=== PATIENT | female | born 1945 | race African-American/Black ===

== ENCOUNTER 2016-12-11 12:15 | Inpatient (IN) | payer MEDICARE, MEDICAID ==
[~2016-12-11] VITALS: Ht 157.5 cm; Wt 65.8 kg
[2016-12-11 14:00] VITALS: BP 164/80
--- NOTE | 2016-12-11 14:35 | Emergency Room Report ---
History of Present Illness General Chief Complaint: Generalized Weakness Source: Patient, EMS Present Illness HPI This patient complains of generalized weakness. The patient states that she felt very weak this morning and when she went to the bathroom she was almost unable to stand up. She denies chest pain or shortness of breath. She denies abdominal pain. She denies dysuria or hematuria. She denies fever chills. She denies cough or congestion. She has no other complaints. Allergies: Coded Allergies: No Known Allergies (Unverified , 12/11/16) Patient History Past Medical History: see triage record, DM, CVA/TIA Social History: Denies: alcohol use, drug use, smoking Reviewed Nursing Documentation: PMH: Agreed, PSxH: Agreed Nursing Documentation-PMH Hx Cardiac Problems: No Hx Hypertension: No Hx Pacemaker: No Hx Asthma: No Hx COPD: No Hx Diabetes: Yes Hx Cancer: No Hx Gastrointestinal Problems: No Hx Dialysis: No History Of Psychiatric Problem: No Hx Neurological Problems: No Hx Cerebrovascular Accident: Yes Hx Seizures: No Review of Systems All Other Systems: negative except mentioned in HPI Physical Exam Vital Signs Date Time Temp Pulse Resp B/P Pulse Ox O2 Delivery O2 Flow Rate FiO2 12/11/16 12:11 99.0 2 16 179/84 98 Room Air Sp02 EP Interpretation: reviewed, normal General Appearance: no apparent distress, alert, GCS 15, non-toxic Head: normocephalic, atraumatic Eyes: bilateral eye PERRL, bilateral eye normal inspection ENT: hearing grossly normal, normal pharynx, no angioedema, normal voice Neck: full range of motion, supple/symm/no masses Respiratory: chest non-tender, lungs clear, normal breath sounds, speaking full sentences Cardiovascular #1: regular rate, rhythm, no edema Gastrointestinal: normal bowel sounds, non tender, soft, non-distended, no guarding, no rebound Rectal: deferred Musculoskeletal: back normal, normal range of motion, non-tender Neurologic: alert, oriented x3, responsive, sensory intact, speech normal, other - No focal weakness Psychiatric: judgement/insight normal, memory normal, mood/affect normal, no suicidal/homicidal ideation Skin: normal color, no rash, warm/dry, well hydrated Medical Decision Making Diagnostic Impression: Primary Impression: UTI (urinary tract infection) Additional Impression: Weakness ER Course This patient presents with generalized weakness and a urinary tract infection. She states she is unable to he really and is too weak to even get up and use the restroom. She will be admitted for further IV antibiotics, further evaluation and treatment. Labs Test 12/11/16 14:17 12/11/16 18:30 12/11/16 23:00 White Blood Count 8.3 K/UL (4.8-10.8) Red Blood Count 4.50 M/UL (4.20-5.40) Hemoglobin 10.7 G/DL (12.0-16.0) Hematocrit 35.4 % (37.0-47.0) Mean Corpuscular Volume 79 FL (80-99) Mean Corpuscular Hemoglobin 23.8 PG (27.0-31.0) Mean Corpuscular Hemoglobin Concent 30.3 G/DL (32.0-36.0) Red Cell Distribution Width 15.5 % (11.6-14.8) Platelet Count 220 K/UL (150-450) Mean Platelet Volume 8.3 FL (6.5-10.1) Neutrophils (%) (Auto) 80.9 % (45.0-75.0) Lymphocytes (%) (Auto) 11.1 % (20.0-45.0) Monocytes (%) (Auto) 6.3 % (1.0-10.0) Eosinophils (%) (Auto) 1.1 % (0.0-3.0) Basophils (%) (Auto) 0.6 % (0.0-2.0) Urine Color Pale yellow Pale yellow Urine Appearance Turbid Slightly cloudy Urine pH 7 (4.5-8.0) 7 (4.5-8.0) Urine Specific [place] 1.010 (1.005-1.035) 1.010 (1.005-1.035) Urine Protein 4+ (NEGATIVE) 4+ (NEGATIVE) Urine Glucose (UA) Negative (NEGATIVE) 1+ (NEGATIVE) Urine Ketones Negative (NEGATIVE) Negative (NEGATIVE) Urine Occult Blood 3+ (NEGATIVE) 3+ (NEGATIVE) Urine Nitrite Negative (NEGATIVE) Negative (NEGATIVE) Urine Bilirubin Negative (NEGATIVE) Negative (NEGATIVE) Urine Urobilinogen Normal MG/DL (0.0-1.0) Normal MG/DL (0.0-1.0) Urine Leukocyte Esterase 3+ (NEGATIVE) 3+ (NEGATIVE) Urine RBC 0-2 /HPF (0 - 2) 30-40 /HPF (0 - 2) Urine WBC Tntc /HPF (0 - 2) Tntc /HPF (0 - 2) Urine Squamous Epithelial Cells Occasional /LPF Few /LPF (NONE/OCC) Urine Bacteria Many /HPF (NONE) Few /HPF (NONE) Sodium Level 142 mEQ/L (135-145) 142 mEQ/L (135-145) Potassium Level 4.1 mEQ/L (3.4-4.9) 3.6 mEQ/L (3.4-4.9) Chloride Level 100 mEQ/L (98-107) 103 mEQ/L (98-107) Carbon Dioxide Level 23 mEQ/L (20-30) 22 mEQ/L (20-30) Anion Gap 19 (5-15) 17 (5-15) Blood Urea Nitrogen 40 mg/dL (7-23) 36 mg/dL (7-23) Creatinine 3.4 mg/dL (0.5-0.9) 3.1 mg/dL (0.5-0.9) Estimat Glomerular Filtration Rate 16.2 mL/min (>60) 17.9 mL/min (>60) Glucose Level 116 mg/dL (74-106) 98 mg/dL (74-106) Lactic Acid Level 0.70 mmol/L (0.66-2.22) Calcium Level 9.8 mg/dL (8.6-10.2) 9.4 mg/dL (8.6-10.2) Magnesium Level 1.4 mg/dL (1.7-2.5) 1.3 mg/dL (1.7-2.5) Total Bilirubin 0.3 mg/dL (0.0-1.2) 0.2 mg/dL (0.0-1.2) Aspartate Amino Transf (AST/SGOT) 15 U/L (5-40) 14 U/L (5-40) Alanine Aminotransferase (ALT/SGPT) 7 U/L (3-33) 7 U/L (3-33) Alkaline Phosphatase 64 U/L (35-104) 57 U/L (35-104) Total Creatine Kinase 66 U/L (26-140) 78 U/L (26-140) Creatine Kinase MB < 1.5 ng/mL (< 3.8) Creatine Kinase MB Relative Index Troponin I < 0.30 ng/mL (<=0.30) Total Protein 7.2 g/dL (6.6-8.7) 6.6 g/dL (6.6-8.7) Albumin 3.8 g/dL (3.5-5.2) 3.5 g/dL (3.5-5.2) Globulin 3.4 g/dL 3.1 g/dL Albumin/Globulin Ratio 1.1 (1.0-2.7) 1.1 (1.0-2.7) Uric Acid 12.5 mg/dL (3.0-7.5) Phosphorus Level 2.3 mg/dL (2.5-4.8) Thyroid Stimulating Hormone (TSH) 1.700 uIU/mL (0.300-4.500) Free Thyroxine 1.38 ng/dL (0.86-1.85) Free Triiodothyronine 2.1 pg/mL (2.3-4.2) Urine Eosinophils None seen Urine Random Sodium 103 mmol/L Urine Random Chloride 71 mmol/L Urine Potassium Timed 16 mmol/L EKG Diagnostic Results Rate: normal Rhythm: NSR ST Segments: no acute changes Rhythm Strip Diag. Results EP Interpretation: yes Rate: 60's Rhythm: NSR, no PVC's, no ectopy Chest X-Ray Diagnostic Results EP Interpretation: Yes Findings: no consolidation, no effusion, no pneumothorax, no acute cardiopulmonary disease Number of Views: 1 Last Vital Signs Date Time Temp Pulse Resp B/P Pulse Ox O2 Delivery O2 Flow Rate FiO2 12/11/16 12:11 99.0 2 16 179/84 98 Room Air Disposition: ADMITTED INPATIENT Condition: Serious Referrals: NOT CHOSEN RODDY/,REFERRING (PCP) LORNA BERG D.O. Dec 11, 2016 14:35
[2016-12-11 14:47] VITALS: BP 205/73
[2016-12-11 14:58] LABS: BASOPHILS % (AUTO) 0.6 % (0.0-2.0); EOSINOPHILS % (AUTO) 1.1 % (0.0-3.0); LYMPHOCYTES % (AUTO) 11.1 % (20.0-45.0); MEAN CORPUSCULAR HEMOGLOBIN 23.8 PG (27.0-31.0); MEAN CORPUSCULAR HGB CONC 30.3 G/DL (32.0-36.0); MEAN CORPUSCULAR VOLUME 79 FL (80-99); MEAN PLATELET VOLUME 8.3 FL (6.5-10.1); MONOCYTES % (AUTO) 6.3 % (1.0-10.0); NEUTROPHILS % (AUTO) 80.9 % (45.0-75.0); PLATELET COUNT 220 K/UL (150-450); RED CELL DISTRIBUTION WIDTH 15.5 % (11.6-14.8); WHITE BLOOD COUNT 8.3 K/UL (4.8-10.8)
[2016-12-11 15:08] LABS: APPEARANCE,URINE TURBID; KETONES,URINE NEGATIVE (NEGATIVE); LEUKOCYTE ESTERASE ,URINE 3+ (NEGATIVE); NITRITE,URINE NEGATIVE (NEGATIVE); PH,URINE 7 (4.5-8.0); PROTEIN,URINE 4+ (NEGATIVE); UROBILINOGEN,URINE NORMAL MG/DL (0.0-1.0)
--- NOTE | 2016-12-11 15:17 | Diagnostic Imaging Report ---
Indication: WEAK Technique: One view of the chest Comparison: none Findings: Lungs and pleural spaces are clear. Heart size normal. Aorta is tortuous and ectatic Impression: No acute process
[2016-12-11] MEDS ORDERED: [UNRECOGNIZED DRUG - REMARK] (15:20)
[2016-12-11] MEDS ORDERED: PLAVIX75 MG ORAL (15:20)
[2016-12-11] MEDS ORDERED: LABETALOL HCL200 MG ORAL (15:20)
[2016-12-11] MEDS ORDERED: [UNRECOGNIZED DRUG - REMARK] (15:20)
[2016-12-11 15:22] LABS: ALANINE AMINOTRANSFERASE 7 U/L (3-33); ALBUMIN/GLOBULIN RATIO 1.1 (1.0-2.7); ANION GAP 19 (5-15); ASPARTATE AMINO TRANSFERASE 15 U/L (5-40); CALCIUM 9.8 mg/dL (8.6-10.2); CARBON DIOXIDE 23 mEQ/L (20-30); CHLORIDE 100 mEQ/L (98-107); CREATININE 3.4 mg/dL (0.5-0.9); GLOMERULAR FILTRATION RATE 16.2 mL/min (>60); HEMOLYSIS 5; MAGNESIUM 1.4 mg/dL (1.7-2.5); POTASSIUM 4.1 mEQ/L (3.4-4.9); SODIUM 142 mEQ/L (135-145); TOTAL PROTEIN 7.2 g/dL (6.6-8.7); TROPONIN I < 0.30 ng/mL (<=0.30)
[2016-12-11 15:31] VITALS: BP 208/88
[2016-12-11 15:32] LABS: CKMB < 1.5 ng/mL (< 3.8)
[2016-12-11] MEDS ORDERED: cefTRIAXone 1 GM in NS 55 ML IVPB ONE (16:00)
[2016-12-11 16:25] LABS: BACTERIA,URINE MANY /HPF; RBC,URINE 0-2 /HPF (0 - 2); SQUAMOUS EPITHELIAL CELL,UR OCCASIONAL /LPF (NONE/OCC); WBC,URINE TNTC /HPF (0 - 2)
[2016-12-11 17:55] VITALS: BP 167/86
[2016-12-11] MEDS ORDERED: DuoNeb 0.5-3(2.5)mg/3ml neb HHN PRN (18:00)
[2016-12-11] MEDS ORDERED: Nitroglycerin Subl 0.4mg tab (Bottle Of 25) SL PRN (18:15)
[2016-12-11 20:00] VITALS: BP 172/87
[2016-12-11] MEDS ORDERED: TORSEMIDE5 MG ORAL (20:52)
[2016-12-11] MEDS ORDERED: [UNRECOGNIZED DRUG - OTHER] PO (20:52)
[2016-12-11] MEDS ORDERED: CELEXA40 MG ORAL (20:52)
[2016-12-11] MEDS ORDERED: CHILDREN'S ASPI81 MG ORAL (20:52)
[2016-12-11] MEDS ORDERED: TRADJENTA5 MG PO (20:52)
[2016-12-11] MEDS ORDERED: ISOSORBIDE MONO60 M1 PO (20:52)
[2016-12-11] MEDS ORDERED: SODIUM BICARBO325 MG PO (20:53)
[2016-12-11] MEDS ORDERED: CRESTOR10 M1 ORAL (20:53)
[2016-12-11] MEDS ORDERED: CLONIDINE0.1 MG PO (20:53)
[2016-12-11] MEDS ORDERED: HYDRALAZINE HCL25 M2 PO (20:53)
[2016-12-11] MEDS ORDERED: DOCUSATE SODIU100 M2 ORAL (20:53)
[2016-12-11] MEDS ORDERED: NEXIUM40 MG ORAL (20:53)
[2016-12-11] MEDS ORDERED: Vancomycin 1250mg/D5W 275ml IVPB ONE ×2 (21:00)
[2016-12-11] MEDS ORDERED: Pneumococcal Vaccine 25mcg/0.5ml IM ONE (21:00)
[2016-12-11] MEDS ORDERED: Cefepime HCl 2 GM in D5W 110 ML IV SCH (21:00)
[2016-12-11] MEDS: Cefepime 1gm/D5W 55ml IVPB SCH ×2 (21:03)
[2016-12-11 21:16] LABS: ALANINE AMINOTRANSFERASE 7 U/L (3-33); ALBUMIN/GLOBULIN RATIO 1.1 (1.0-2.7); ANION GAP 17 (5-15); ASPARTATE AMINO TRANSFERASE 14 U/L (5-40); CALCIUM 9.4 mg/dL (8.6-10.2); CARBON DIOXIDE 22 mEQ/L (20-30); CHLORIDE 103 mEQ/L (98-107); CREATININE 3.1 mg/dL (0.5-0.9); FREE T3 2.1 pg/mL (2.3-4.2); GLOMERULAR FILTRATION RATE 17.9 mL/min (>60); HEMOLYSIS 4; MAGNESIUM 1.3 mg/dL (1.7-2.5); PHOSPHORUS 2.3 mg/dL (2.5-4.8); POTASSIUM 3.6 mEQ/L (3.4-4.9); SODIUM 142 mEQ/L (135-145); TOTAL PROTEIN 6.6 g/dL (6.6-8.7); URIC ACID 12.5 mg/dL (3.0-7.5)
[2016-12-11] MEDS: Heparin 5000 units/ml inj SUBQ SCH (21:49)
[2016-12-11] MEDS: Morphine Sulfate 2mg/ml Inj IVP PRN (21:50)
--- NOTE | 2016-12-11 22:47 | History and Physical ---
History of Present Illness General Date patient seen: Dec 11, 2016 Reason for Hospitalization: Generalized Weakness Present Illness HPI 71 year old female with hx of DM, CVA, brought in by paramedics with complains of generalized weakness. The patient states that she felt very weak this morning and when she went to the bathroom she was almost unable to stand up. She denies chest pain or shortness of breath. She denies abdominal pain. She denies dysuria or hematuria. She was diagnosed to have pyelonephritis and admitted for further evaluation. Allergies: Coded Allergies: IODINE (Verified Allergy, Intermediate, Rash, 12/16/16) ALLOPURINOL (Verified Adverse Reaction, Intermediate, rash, 12/16/16) Medication History Scheduled Aspirin (Children's Aspirin), 81 MG ORAL DAILY, (Reported) Citalopram Hydrobromide (Celexa), 40 MG ORAL DAILY, (Reported) Clonidine HCl (Clonidine HCl), 0.1 MG PO BID, (Reported) Clopidogrel Bisulfate* (Plavix*), Unknown Dose ORAL DAILY, (Reported) Docusate Sodium (Docusate Sodium), 100 MG ORAL BID, (Reported) Esomeprazole Magnesium (Nexium), 40 MG ORAL DAILY, (Reported) Hydralazine HCl (Hydralazine HCl), 25 MG PO BID, (Reported) Isosorbide Mononitrate (Isosorbide Mononitrate Er), 60 MG PO DAILY, (Reported) Labetalol Hcl* (Normodyne*), 200 MG ORAL TID, (Reported) Linagliptin (Tradjenta), 5 MG PO DAILY, (Reported) Paricalcitol (Paricalcitol), 1 MCG PO BID, (Reported) Rosuvastatin Calcium (Crestor), Unknown Dose ORAL DAILY, (Reported) Sodium Bicarbonate (Sodium Bicarbonate), 325 MG PO BID, (Reported) Torsemide (Torsemide), 20 MG ORAL DAILY, (Reported) Miscellaneous Medications [cholestero pill], (Reported) [diabetic med (pill)], (Reported) Patient History Healthcare decision maker Resuscitation status Advanced Directive on File Review of Systems All Other Systems: negative except mentioned in HPI Physical Exam General Appearance: WD/WN Lines, tubes and drains: peripheral HEENT: normocephalic, atraumatic Neck: non-tender, normal alignment Respiratory/Chest: chest wall non-tender, lungs clear Cardiovascular/Chest: normal peripheral pulses, regular rhythm Abdomen: normal bowel sounds, non tender Genitourinary/Rectal: normal genital exam, normal rectal exam Extremities: normal range of motion, non-tender 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, no motor/sensory deficits Last 24 Hour Vital Signs Date Time Temp Pulse Resp B/P Pulse Ox O2 Delivery O2 Flow Rate FiO2 12/11/16 20:00 98.2 74 20 172/87 99 Room Air 12/11/16 19:37 167/86 12/11/16 17:55 97.9 77 22 167/86 100 Room Air 12/11/16 17:31 77 17 171/72 98 Room Air 12/11/16 15:44 212/68 12/11/16 15:31 73 18 208/88 98 Room Air 12/11/16 14:47 99.7 67 17 205/73 98 Room Air 12/11/16 14:00 98.5 65 16 164/80 100 Room Air 12/11/16 12:11 99.0 2 16 179/84 98 Room Air Laboratory Tests Test 12/11/16 14:17 12/11/16 18:30 White Blood Count 8.3 K/UL (4.8-10.8) Red Blood Count 4.50 M/UL (4.20-5.40) Hemoglobin 10.7 G/DL (12.0-16.0) L Hematocrit 35.4 % (37.0-47.0) L Mean Corpuscular Volume 79 FL (80-99) L Mean Corpuscular Hemoglobin 23.8 PG (27.0-31.0) L Mean Corpuscular Hemoglobin Concent 30.3 G/DL (32.0-36.0) L Red Cell Distribution Width 15.5 % (11.6-14.8) H Platelet Count 220 K/UL (150-450) Mean Platelet Volume 8.3 FL (6.5-10.1) Neutrophils (%) (Auto) 80.9 % (45.0-75.0) H Lymphocytes (%) (Auto) 11.1 % (20.0-45.0) L Monocytes (%) (Auto) 6.3 % (1.0-10.0) Eosinophils (%) (Auto) 1.1 % (0.0-3.0) Basophils (%) (Auto) 0.6 % (0.0-2.0) Urine Color Pale yellow Urine Appearance Turbid Urine pH 7 (4.5-8.0) Urine Specific [place] 1.010 (1.005-1.035) Urine Protein 4+ (NEGATIVE) H Urine Glucose (UA) Negative (NEGATIVE) Urine Ketones Negative (NEGATIVE) Urine Occult Blood 3+ (NEGATIVE) H Urine Nitrite Negative (NEGATIVE) Urine Bilirubin Negative (NEGATIVE) Urine Urobilinogen Normal MG/DL (0.0-1.0) Urine Leukocyte Esterase 3+ (NEGATIVE) H Urine RBC 0-2 /HPF (0 - 2) Urine WBC Tntc /HPF (0 - 2) H Urine Squamous Epithelial Cells Occasional /LPF Urine Bacteria Many /HPF (NONE) H Sodium Level 142 mEQ/L (135-145) 142 mEQ/L (135-145) Potassium Level 4.1 mEQ/L (3.4-4.9) 3.6 mEQ/L (3.4-4.9) Chloride Level 100 mEQ/L (98-107) 103 mEQ/L (98-107) Carbon Dioxide Level 23 mEQ/L (20-30) 22 mEQ/L (20-30) Anion Gap 19 (5-15) H 17 (5-15) H Blood Urea Nitrogen 40 mg/dL (7-23) H 36 mg/dL (7-23) H Creatinine 3.4 mg/dL (0.5-0.9) H 3.1 mg/dL (0.5-0.9) H Estimat Glomerular Filtration Rate 16.2 mL/min (>60) 17.9 mL/min (>60) Glucose Level 116 mg/dL (74-106) H 98 mg/dL (74-106) Lactic Acid Level 0.70 mmol/L (0.66-2.22) Calcium Level 9.8 mg/dL (8.6-10.2) 9.4 mg/dL (8.6-10.2) Magnesium Level 1.4 mg/dL (1.7-2.5) L 1.3 mg/dL (1.7-2.5) L Total Bilirubin 0.3 mg/dL (0.0-1.2) 0.2 mg/dL (0.0-1.2) Aspartate Amino Transf (AST/SGOT) 15 U/L (5-40) 14 U/L (5-40) Alanine Aminotransferase (ALT/SGPT) 7 U/L (3-33) 7 U/L (3-33) Alkaline Phosphatase 64 U/L (35-104) 57 U/L (35-104) Total Creatine Kinase 66 U/L (26-140) 78 U/L (26-140) Creatine Kinase MB < 1.5 ng/mL (< 3.8) Creatine Kinase MB Relative Index Troponin I < 0.30 ng/mL (<=0.30) Total Protein 7.2 g/dL (6.6-8.7) 6.6 g/dL (6.6-8.7) Albumin 3.8 g/dL (3.5-5.2) 3.5 g/dL (3.5-5.2) Globulin 3.4 g/dL 3.1 g/dL Albumin/Globulin Ratio 1.1 (1.0-2.7) 1.1 (1.0-2.7) Plasma/Serum Osmolality Pending Uric Acid 12.5 mg/dL (3.0-7.5) H Phosphorus Level 2.3 mg/dL (2.5-4.8) L Thyroid Stimulating Hormone (TSH) 1.700 uIU/mL (0.300-4.500) Free Thyroxine 1.38 ng/dL (0.86-1.85) Free Triiodothyronine 2.1 pg/mL (2.3-4.2) L Cortisol Pending Microbiology Date/Time Source Procedure Growth Status 12/11/16 14:12 Nasal Nares Influenza Types A,B Antigen (SARAH) - Final Complete Height (Feet): 5 Height (Inches): 2.00 Weight (Pounds): 145 Medications Current Medications Medications (Trade) Dose Ordered Sig/Letty Route PRN Reason Start Time Stop Time Status Last Admin Dose Admin Acetaminophen (Tylenol) 650 mg Q4H PRN ORAL T>100.5 12/11/16 18:00 01/10/17 17:59 Albuterol/ Ipratropium (DuoNeb 0.5-3(2.5)mg/3ml) 3 ml Q4H PRN HHN Shortness of Breath 12/11/16 18:00 12/16/16 17:59 Cefepime HCl/ Dextrose (Maxipime/D5W) 55 ml @ 110 mls/hr Q24H IVPB 12/11/16 20:00 12/18/16 19:59 12/11/16 21:03 Clonidine HCl (Catapres) 0.1 mg Q6H PRN ORAL SBP > 160 12/11/16 18:45 01/10/17 18:44 12/11/16 19:37 Clopidogrel Bisulfate 75 mg 75 mg DAILY ORAL 12/12/16 09:00 01/11/17 08:59 Dextrose (Dextrose 50%) STAT PRN IV Hypoglycemia 12/11/16 21:15 01/10/17 21:14 Heparin Sodium (Porcine) (Heparin 5000 units/ml) 5,000 units EVERY 12 HOURS SUBQ 12/11/16 21:00 01/10/17 20:59 12/11/16 21:49 Insulin Aspart (NovoLOG) BEFORE MEALS AND HS SUBQ 12/12/16 22:00 01/11/17 21:59 Morphine Sulfate (Morphine Sulfate) 2 mg Q4H PRN IVP Moderate Pain (Pain Scale 4-6) 12/11/16 18:00 12/18/16 17:59 12/11/16 21:50 Nitroglycerin 0.4 mg 0.4 mg Q5MIN X 3 DOSES PRN SL Prn Chest Pain 12/11/16 18:15 01/10/17 18:14 Ondansetron HCl (Zofran) 4 mg Q6H PRN IVP Nausea & Vomiting 12/11/16 18:00 01/10/17 17:59 Polyethylene Glycol (Miralax) 17 gm DAILYPRN PRN ORAL Constipation 12/11/16 18:00 01/10/17 17:59 Sodium Chloride (Sodium Chloride 1000ml bag) 1,000 ml @ 50 mls/hr Q20H IVLG 12/11/16 19:00 01/10/17 18:59 12/11/16 19:37 Temazepam (Restoril) 15 mg HSPRN PRN ORAL Insomnia 12/11/16 21:00 12/18/16 20:59 Vancomycin HCl (Vanco rx to dose) 1 ea DAILY PRN MISC . 12/11/16 18:30 01/10/17 18:29 Assessment/Plan Problem List: (1) Sepsis ICD Codes: A41.9 - Sepsis, unspecified organism SNOMED: 54109296 (2) ATN (acute tubular necrosis) ICD Codes: N17.0 - Acute kidney failure with tubular necrosis SNOMED: 89597013 (3) Episode of generalized weakness ICD Codes: R53.1 - Weakness SNOMED: 65787805 (4) UTI (urinary tract infection) ICD Codes: N39.0 - Urinary tract infection, site not specified SNOMED: 00836504 Assessment/Plan IV antibiotics IV fluids check cultures check electrolytes renal studies CHARLOTTE MARTINES Dec 11, 2016 22:47
[2016-12-11] MEDS: NovoLOG Insulin Flexpen SUBQ SCH (23:38)
[2016-12-12] VITALS: BP 166/86
[2016-12-12] MEDS ORDERED: Vancomycin 1 GM in D5W 275 ML IV SCH (00:30)
[2016-12-12 00:48] LABS: KETONES,URINE NEGATIVE (NEGATIVE); LEUKOCYTE ESTERASE ,URINE 3+ (NEGATIVE); NITRITE,URINE NEGATIVE (NEGATIVE); PH,URINE 7 (4.5-8.0); PROTEIN,URINE 4+ (NEGATIVE); UROBILINOGEN,URINE NORMAL MG/DL (0.0-1.0)
[2016-12-12 00:51] LABS: APPEARANCE,URINE SLIGHTLY CLOUDY
[2016-12-12 01:03] LABS: BACTERIA,URINE FEW /HPF; RBC,URINE 30-40 /HPF (0 - 2); SQUAMOUS EPITHELIAL CELL,UR FEW /LPF (NONE/OCC); WBC,URINE TNTC /HPF (0 - 2)
[2016-12-12 04:00] VITALS: BP 165/80
[2016-12-12] MEDS: NovoLOG Insulin Flexpen SUBQ SCH ×4 (05:52→20:41)
[2016-12-12 08:00] VITALS: BP 140/80
[2016-12-12 08:52] LABS: BASOPHILS % (AUTO) 0.9 % (0.0-2.0); EOSINOPHILS % (AUTO) 2.3 % (0.0-3.0); MEAN CORPUSCULAR HEMOGLOBIN 23.8 PG (27.0-31.0); MEAN CORPUSCULAR HGB CONC 30.5 G/DL (32.0-36.0); MEAN CORPUSCULAR VOLUME 78 FL (80-99); MEAN PLATELET VOLUME 7.8 FL (6.5-10.1); NEUTROPHILS % (AUTO) 67.8 % (45.0-75.0); PLATELET COUNT 199 K/UL (150-450); RED CELL DISTRIBUTION WIDTH 15.1 % (11.6-14.8); WHITE BLOOD COUNT 5.9 K/UL (4.8-10.8)
[2016-12-12 09:11] LABS: CALCIUM 9.3 mg/dL (8.6-10.2); CREATININE 2.9 mg/dL (0.5-0.9); GLOMERULAR FILTRATION RATE 19.4 mL/min (>60); POTASSIUM 4.1 mEQ/L (3.4-4.9); TOTAL PROTEIN 6.5 g/dL (6.6-8.7)
[2016-12-12 10:10] LABS: CORTISOL LC 9.9 ug/dL (.)
[2016-12-12] MEDS: Heparin 5000 units/ml inj SUBQ SCH ×2 (10:25→20:38)
[2016-12-12 12:00] VITALS: BP 184/93
--- NOTE | 2016-12-12 12:34 | Diagnostic Imaging Report ---
Indication: Abnormal renal function tests Technique: Grayscale and duplex images of the kidneys, retroperitoneum, and bladder were obtained. Comparison:None Findings: Right kidney measures 10.1 cm in length. Left kidney measures 10.4 cm in length. Both kidneys demonstrate normal echogenicity. No hydronephrosis. Bilateral renal cysts, including septated left upper pole cyst. Small calcifications are seen in the left renal parenchyma and possibly in the renal sinus, may reflect calyceal calculi or parenchymal calcifications. Normal inferior vena cava. Bladder is empty, contains a Velasco catheter. Impression: Negative for hydronephrosis Left renal calcifications, may be parenchymal or calyceal Bilateral renal cysts Empty bladder with Velasco catheter.
[2016-12-12 16:00] VITALS: BP 189/91
[2016-12-12 19:00] VITALS: BP 160/86
[2016-12-12] MEDS: Cefepime 1gm/D5W 55ml IVPB SCH ×2 (20:35)
[2016-12-12] MEDS: Labetalol 200mg tab ORAL SCH (20:36)
[2016-12-12] MEDS: HydrALAZINE 25mg tab ORAL SCH (20:37)
--- NOTE | 2016-12-12 22:50 | Consultation ---
Consult Note Consult Note ID Dic # [id number] FAISAL ALBRECHT M.D. Dec 12, 2016 22:50
--- NOTE | 2016-12-12 23:50 | Pulmonology Progress Note ---
Assessment/Plan Problems: (1) Sepsis (2) ATN (acute tubular necrosis) (3) UTI (urinary tract infection) Assessment/Plan iv antibiotics check cultures check electrolytes tolerating well Subjective ROS Limited/Unobtainable: No Allergies: Coded Allergies: IODINE (Verified Allergy, Intermediate, Rash, 12/16/16) ALLOPURINOL (Verified Adverse Reaction, Intermediate, rash, 12/16/16) Objective Last 24 Hour Vital Signs Date Time Temp Pulse Resp B/P Pulse Ox O2 Delivery O2 Flow Rate FiO2 12/12/16 20:37 189/91 12/12/16 20:36 60 189/91 12/12/16 20:36 189/91 12/12/16 19:00 98.3 66 18 160/86 99 Room Air 12/12/16 16:00 97.0 60 18 189/91 100 Room Air 12/12/16 12:36 184/93 12/12/16 12:00 97.0 68 20 184/93 98 Room Air 12/12/16 08:00 99.8 67 19 140/80 95 Room Air 12/12/16 06:19 165/80 12/12/16 04:00 97.0 71 18 165/80 99 Room Air 12/12/16 00:00 98.2 68 20 166/86 95 Room Air Intake and Output 12/11/16 12/12/16 19:00 07:00 Intake Total 1055 ml 570 ml Output Total 200 ml 1400 ml Balance 855 ml -830 ml Intake Oral 120 ml IV Total 1055 ml 450 ml Output Urine Total 200 ml 1400 ml Objective General Appearance: WD/WN Lines, tubes and drains: peripheral HEENT: normocephalic, atraumatic Neck: non-tender, normal alignment Respiratory/Chest: chest wall non-tender, lungs clear Cardiovascular/Chest: normal peripheral pulses, regular rhythm Abdomen: normal bowel sounds, non tender Genitourinary/Rectal: normal genital exam, normal rectal exam Extremities: normal range of motion, non-tender Microbiology Date/Time Source Procedure Growth Status 12/11/16 14:12 Nasal Nares Influenza Types A,B Antigen (SARAH) - Final Complete 12/11/16 14:17 Urine,Clean Catch Urine Culture - Preliminary Gram Negative Bacillus 1 Resulted Laboratory Tests 12/12/16 07:57: White Blood Count 5.9, Red Blood Count 4.20, Hemoglobin 10.0L, Hematocrit 32.8L , Mean Corpuscular Volume 78L, Mean Corpuscular Hemoglobin 23.8L, Mean Corpuscular Hemoglobin Concent 30.5L, Red Cell Distribution Width 15.1H, Platelet Count 199, Mean Platelet Volume 7.8, Neutrophils (%) (Auto) 67.8, Lymphocytes (%) (Auto) 20.0, Monocytes (%) (Auto) 9.0, Eosinophils (%) (Auto) 2.3, Basophils (%) (Auto) 0.9, Sodium Level 140, Potassium Level 4.1, Chloride Level 101, Carbon Dioxide Level 24, Anion Gap 15, Blood Urea Nitrogen 32H, Creatinine 2.9H, Estimat Glomerular Filtration Rate 19.4, Glucose Level 135H, Calcium Level 9.3, Total Bilirubin 0.2, Aspartate Amino Transf (AST/SGOT) 13, Alanine Aminotransferase (ALT/SGPT) 7, Alkaline Phosphatase 57, Total Protein 6.5L, Albumin 3.4L, Globulin 3.1, Albumin/Globulin Ratio 1.0 Current Medications Medications (Trade) Dose Ordered Sig/Letty Route PRN Reason Start Time Stop Time Status Last Admin Dose Admin Acetaminophen (Tylenol) 650 mg Q4H PRN ORAL T>100.5 12/11/16 18:00 01/10/17 17:59 Albuterol/ Ipratropium (DuoNeb 0.5-3(2.5)mg/3ml) 3 ml Q4H PRN HHN Shortness of Breath 12/11/16 18:00 12/16/16 17:59 Aspirin (ASA) 81 mg DAILY ORAL 12/13/16 09:00 01/12/17 08:59 Atorvastatin Calcium (Lipitor) 1 mg QHS ORAL 12/13/16 21:00 01/12/17 20:59 Cefepime HCl/ Dextrose (Maxipime/D5W) 55 ml @ 110 mls/hr Q24H IVPB 12/11/16 20:00 12/18/16 19:59 12/12/16 20:35 Citalopram Hydrobromide (celeXA) 40 mg DAILY ORAL 12/13/16 09:00 01/12/17 08:59 Clonidine HCl (Catapres) 0.1 mg BID ORAL 12/12/16 20:00 01/11/17 19:59 12/12/16 20:36 Clonidine HCl (Catapres) 0.1 mg Q6H PRN ORAL SBP > 160 12/11/16 18:45 01/10/17 18:44 12/12/16 12:36 Clopidogrel Bisulfate 75 mg 75 mg DAILY ORAL 12/12/16 09:00 01/11/17 08:59 12/12/16 10:20 Dextrose (Dextrose 50%) STAT PRN IV Hypoglycemia 12/11/16 21:15 01/10/17 21:14 Docusate Sodium (Colace) 100 mg BID ORAL 12/13/16 20:00 01/12/17 19:59 Heparin Sodium (Porcine) (Heparin 5000 units/ml) 5,000 units EVERY 12 HOURS SUBQ 12/11/16 21:00 01/10/17 20:59 12/12/16 20:38 Hydralazine HCl (Apresoline) 25 mg BID ORAL 12/12/16 20:00 01/11/17 19:59 12/12/16 20:37 Insulin Aspart (NovoLOG) BEFORE MEALS AND HS SUBQ 12/11/16 22:30 01/10/17 22:29 12/12/16 20:41 Isosorbide Mononitrate (Imdur) 60 mg DAILY ORAL 12/13/16 09:00 01/12/17 08:59 Labetalol HCl (Normodyne) 200 mg TID ORAL 12/12/16 20:00 01/11/17 19:59 12/12/16 20:36 Morphine Sulfate (Morphine Sulfate) 2 mg Q4H PRN IVP Moderate Pain (Pain Scale 4-6) 12/11/16 18:00 12/18/16 17:59 12/11/16 21:50 Nitroglycerin 0.4 mg 0.4 mg Q5MIN X 3 DOSES PRN SL Prn Chest Pain 12/11/16 18:15 01/10/17 18:14 Non-Formulary Medication (Non-Formulary Med) 1 ea DAILY ORAL 12/13/16 09:00 01/12/17 08:59 UNV Ondansetron HCl (Zofran) 4 mg Q6H PRN IVP Nausea & Vomiting 12/11/16 18:00 01/10/17 17:59 Pantoprazole (Protonix) 40 mg DAILY ORAL 12/13/16 09:00 01/12/17 08:59 Paricalcitol (Zemplar) 1 mcg BID ORAL 12/13/16 20:00 01/12/17 19:59 Polyethylene Glycol (Miralax) 17 gm DAILYPRN PRN ORAL Constipation 12/11/16 18:00 01/10/17 17:59 Sodium Bicarbonate (NaHCO3) 325 mg BID ORAL 12/13/16 20:00 01/12/17 19:59 Sodium Chloride (Sodium Chloride 1000ml bag) 1,000 ml @ 50 mls/hr Q20H IVLG 12/11/16 19:00 01/10/17 18:59 12/12/16 17:20 Temazepam (Restoril) 15 mg HSPRN PRN ORAL Insomnia 12/11/16 21:00 12/18/16 20:59 Torsemide (Demadex) 20 mg DAILY ORAL 12/13/16 09:00 01/12/17 08:59 CHARLOTTE MARTINES Dec 12, 2016 23:50
[2016-12-13] MEDS ORDERED: Vancomycin 500mg/D5W 110ml IVPB ONE ×2
[2016-12-13 00:33] VITALS: BP 196/86
[2016-12-13 04:00] VITALS: BP 167/90
--- NOTE | 2016-12-13 04:28 | Consultation ---
DATE OF CONSULTATION: 12/12/2016 INFECTIOUS DISEASES CONSULTATION CONSULTING PHYSICIAN: Rosalino Rodriguez M.D. REQUESTING PHYSICIAN: Jeyson Peralta M.D. REASON FOR CONSULTATION: Evaluation of the patient for possible urinary tract infection and antibiotic management. HISTORY OF PRESENT ILLNESS: The patient is a 71-year-old female, who was admitted to this medical center because of general weakness. Urine culture is growing gram-negative ede. UA shows too numerous to count white blood cells. Infectious Diseases consultation has been requested for further evaluation of the patient's antibiotic management. PAST MEDICAL HISTORY: 1. General weakness. 2. Diabetes. 3. History of CVA. ALLERGIES: No known drug allergies. MEDICATIONS: Vancomycin and cefepime. SOCIAL HISTORY: Negative for alcohol or drug abuse. FAMILY HISTORY: Noncontributory. REVIEW OF SYSTEMS: A 10-point review was done and except what is mentioned has been negative.HEENT: No recent change in vision or hearing. Pulmonary: No cough or shortness of breath. Cardiovascular: No chest pain or palpitation. Gastrointestinal: No nausea or vomiting. Genitourinary: No dysuria. PHYSICAL EXAMINATION: VITAL SIGNS: Temperature 98 degrees, blood pressure 160/80, pulse 86, and respiratory rate 18. HEENT: Mild pale conjunctivae. No icterus. NECK: Supple. CHEST: Coarse breathing sounds. HEART: S1 and S2. ABDOMEN: Soft and nontender. EXTREMITIES: No cyanosis. GENITOURINARY: Velasco catheter in place. NEUROLOGICAL: Awake and alert. LABORATORY AND DIAGNOSTIC DATA: UA shows too numerous to count white blood cells. Urine culture is growing gram-negative ede. BUN and creatinine is 32 and 29 respectively. WBC is 5.9, hemoglobin 10, and platelets 159,000. Ultrasound of the kidney is negative for hydronephrosis. Chest x-ray, no acute process. ASSESSMENT: The patient is a 71-year-old female with multiple medical problems, who has been admitted to this medical center due to history of general weakness, pyuria, and urine culture is growing gram-negative ede, possible urinary tract infection, sepsis, and bacteremia is a consideration. PLAN: 1. We will continue the patient on cefepime. 2. Hold vancomycin. 3. Monitor CBC. 4. Monitor BMP. 5. Monitor cultures (blood and urine). 6. Monitor chest x-ray. 7. Based on patient's clinical course and laboratories, we will do further recommendation. Thank you, Dr. Peralta, for allowing me to participate in the care of this patient. I will follow the patient with you during this hospitalization. Rosalino Rodriguez M.D. DR: NEY JOB#: [id number] CC:
[2016-12-13] MEDS: NovoLOG Insulin Flexpen SUBQ SCH ×4 (06:24→21:52)
[2016-12-13 07:41] LABS: ANION GAP 18 (5-15); CALCIUM 9.5 mg/dL (8.6-10.2); CARBON DIOXIDE 22 mEQ/L (20-30); CHLORIDE 102 mEQ/L (98-107); CREATININE 2.5 mg/dL (0.5-0.9); HEMOLYSIS 4; POTASSIUM 3.6 mEQ/L (3.4-4.9); SODIUM 142 mEQ/L (135-145)
[2016-12-13 08:00] VITALS: BP 165/85
[2016-12-13] MEDS: Morphine Sulfate 2mg/ml Inj IVP PRN ×2 (08:15→13:53)
[2016-12-13] MEDS: Aspirin Baby 81mg ORAL SCH (08:16)
[2016-12-13] MEDS: Citalopram 20mg Tab ORAL SCH (08:16)
[2016-12-13] MEDS: Imdur 30mg tab ORAL SCH (08:17)
[2016-12-13] MEDS: Labetalol 200mg tab ORAL SCH ×3 (08:17→17:39)
[2016-12-13] MEDS: HydrALAZINE 25mg tab ORAL SCH ×2 (08:17→21:49)
[2016-12-13] MEDS: Heparin 5000 units/ml inj SUBQ SCH ×2 (08:23→21:51)
[2016-12-13] MEDS ORDERED: Torsemide 10mg tab ORAL SCH (09:00)
--- NOTE | 2016-12-13 10:43 | Infectious Diseases Prog Note ---
Assessment/Plan Assessment/Plan A: The patient is a 71-year-old female w Probable UTI General weakness Ultrasound of the kidney : No hydronephrosis Chest x-ray, no acute process Flu Neg Diabetes History of CVA PLAN: continue the patient on cefepime d# 3 , may change to PO based on the final UCx report Monitor CBC. Monitor BMP Monitor cultures (blood and urine) Monitor chest x-ray Subjective Constitutional: Denies: anorexia, chills, drenching sweats, fatigue, fever, no symptoms, other Allergies: Coded Allergies: No Known Allergies (Unverified , 12/11/16) Objective Vital Signs Last 24 Hour Vital Signs Date Time Temp Pulse Resp B/P Pulse Ox O2 Delivery O2 Flow Rate FiO2 12/13/16 08:45 97.2 12/13/16 08:18 167/90 12/13/16 08:17 167/90 12/13/16 08:17 68 167/90 12/13/16 08:17 167/90 12/13/16 08:07 97 18 Room Air 12/13/16 08:00 98.3 22 165/85 97 Room Air 12/13/16 06:53 167/90 12/13/16 04:00 97.2 68 18 167/90 100 Room Air 12/13/16 00:33 98.1 63 21 196/86 98 Room Air 12/12/16 20:37 189/91 12/12/16 20:36 60 189/91 12/12/16 20:36 189/91 12/12/16 19:00 98.3 66 18 160/86 99 Room Air 12/12/16 16:00 97.0 60 18 189/91 100 Room Air 12/12/16 12:36 184/93 12/12/16 12:00 97.0 68 20 184/93 98 Room Air Height (Feet): 5 Height (Inches): 2.00 Weight (Pounds): 145 HEENT: anicteric Respiratory/Chest: normal breath sounds Cardiovascular: regular rhythm Abdomen: no organomegaly Microbiology Date/Time Source Procedure Growth Status 12/11/16 14:37 Blood Blood Culture - Preliminary NO GROWTH AFTER 24 HOURS Resulted 12/11/16 14:17 Blood Blood Culture - Preliminary NO GROWTH AFTER 24 HOURS Resulted 12/11/16 14:12 Nasal Nares Influenza Types A,B Antigen (SARAH) - Final Complete 12/11/16 14:17 Urine,Clean Catch Urine Culture - Preliminary Gram Negative Bacillus 1 Resulted Laboratory Tests Test 12/13/16 05:05 Sodium Level 142 mEQ/L (135-145) Potassium Level 3.6 mEQ/L (3.4-4.9) Chloride Level 102 mEQ/L (98-107) Carbon Dioxide Level 22 mEQ/L (20-30) Anion Gap 18 (5-15) H Blood Urea Nitrogen 27 mg/dL (7-23) H Creatinine 2.5 mg/dL (0.5-0.9) H Estimat Glomerular Filtration Rate mL/min (>60) Glucose Level 98 mg/dL (74-106) Calcium Level 9.5 mg/dL (8.6-10.2) Current Medications Medications (Trade) Dose Ordered Sig/Letty Route PRN Reason Start Time Stop Time Status Last Admin Dose Admin Acetaminophen (Tylenol) 650 mg Q4H PRN ORAL T>100.5 12/11/16 18:00 01/10/17 17:59 Albuterol/ Ipratropium (DuoNeb 0.5-3(2.5)mg/3ml) 3 ml Q4H PRN HHN Shortness of Breath 12/11/16 18:00 12/16/16 17:59 Aspirin (ASA) 81 mg DAILY ORAL 12/13/16 09:00 01/12/17 08:59 12/13/16 08:16 Atorvastatin Calcium (Lipitor) 1 mg QHS ORAL 12/13/16 21:00 01/12/17 20:59 Cefepime HCl/ Dextrose (Maxipime/D5W) 55 ml @ 110 mls/hr Q24H IVPB 12/11/16 20:00 12/18/16 19:59 12/12/16 20:35 Citalopram Hydrobromide (celeXA) 40 mg DAILY ORAL 12/13/16 09:00 01/12/17 08:59 12/13/16 08:16 Clonidine HCl (Catapres) 0.1 mg BID ORAL 12/12/16 20:00 01/11/17 19:59 12/13/16 08:18 Clonidine HCl (Catapres) 0.1 mg Q6H PRN ORAL SBP > 160 12/11/16 18:45 01/10/17 18:44 12/13/16 06:53 Clopidogrel Bisulfate 75 mg 75 mg DAILY ORAL 12/12/16 09:00 01/11/17 08:59 12/13/16 08:17 Dextrose (Dextrose 50%) STAT PRN IV Hypoglycemia 12/11/16 21:15 01/10/17 21:14 Docusate Sodium (Colace) 100 mg BID ORAL 12/13/16 20:00 01/12/17 19:59 Heparin Sodium (Porcine) (Heparin 5000 units/ml) 5,000 units EVERY 12 HOURS SUBQ 12/11/16 21:00 01/10/17 20:59 12/13/16 08:23 Hydralazine HCl (Apresoline) 25 mg BID ORAL 12/12/16 20:00 01/11/17 19:59 12/13/16 08:17 Insulin Aspart (NovoLOG) BEFORE MEALS AND HS SUBQ 12/11/16 22:30 01/10/17 22:29 12/13/16 06:24 Isosorbide Mononitrate (Imdur) 60 mg DAILY ORAL 12/13/16 09:00 01/12/17 08:59 12/13/16 08:17 Labetalol HCl (Normodyne) 200 mg TID ORAL 12/12/16 20:00 01/11/17 19:59 12/13/16 08:17 Morphine Sulfate (Morphine Sulfate) 2 mg Q4H PRN IVP Moderate Pain (Pain Scale 4-6) 12/11/16 18:00 12/18/16 17:59 12/13/16 08:15 Nitroglycerin 0.4 mg 0.4 mg Q5MIN X 3 DOSES PRN SL Prn Chest Pain 12/11/16 18:15 01/10/17 18:14 Non-Formulary Medication (Non-Formulary Med) 1 ea DAILY ORAL 12/13/16 09:00 01/12/17 08:59 UNV Ondansetron HCl (Zofran) 4 mg Q6H PRN IVP Nausea & Vomiting 12/11/16 18:00 01/10/17 17:59 Pantoprazole (Protonix) 40 mg DAILY ORAL 12/13/16 09:00 01/12/17 08:59 12/13/16 08:17 Paricalcitol (Zemplar) 1 mcg BID ORAL 12/13/16 20:00 01/12/17 19:59 Polyethylene Glycol (Miralax) 17 gm DAILYPRN PRN ORAL Constipation 12/11/16 18:00 01/10/17 17:59 Sodium Bicarbonate (NaHCO3) 325 mg BID ORAL 12/13/16 20:00 01/12/17 19:59 Sodium Chloride (Sodium Chloride 1000ml bag) 1,000 ml @ 50 mls/hr Q20H IVLG 12/11/16 19:00 01/10/17 18:59 12/12/16 17:20 Temazepam (Restoril) 15 mg HSPRN PRN ORAL Insomnia 12/11/16 21:00 12/18/16 20:59 Torsemide (Demadex) 20 mg DAILY ORAL 12/13/16 09:00 01/12/17 08:59 12/13/16 08:16 FAISAL ALBRECHT M.D. Dec 13, 2016 10:43
[2016-12-13 12:00] VITALS: BP 131/70
--- NOTE | 2016-12-13 14:04 | Cardiology Report ---
APPROVED REPORT EKG Measurement Heart [id number] Normal sinus rhythm Moderate voltage criteria for LVH, may be normal variant Cannot rule out Septal infarct, age undetermined Abnormal ECG
--- NOTE | 2016-12-13 14:25 | Consultation ---
Consult Note Consult Note asked to evaluate at the request of Dr Peralta for renal failure- This patient complains of generalized weakness. The patient states that she felt very weak this morning and when she went to the bathroom she was almost unable to stand up. She denies chest pain or shortness of breath. She denies abdominal pain. She denies dysuria or hematuria. She denies fever chills. She denies cough or congestion. She has no other complaints. Hx Diabetes: Yes Hx Cerebrovascular Accident: Yes patient examined and data reviewed Assessment/Plan status; Acute renal failure , PreRenal mainly ( being treated with diuretics...? CHF ? Underlying Diabetic Hypertensive kidney disease UTI HTN DM High Cholestrol Microcytic Anemia Plan; Adjust BP meds- Slow Hydrate- DC diuretics 2D echo anemia zee per orders ROD PATE Dec 13, 2016 14:25
[2016-12-13] MEDS ORDERED: Tubing IV Secondary IV ONE (15:01)
[2016-12-13 16:00] VITALS: BP 127/71
[2016-12-13] MEDS ORDERED: Vancomycin 1gm/D5W 275ml IVPB ONE ×2 (17:00)
[2016-12-13 20:00] VITALS: BP 138/75
[2016-12-13] MEDS ORDERED: Docusate 100mg tablet ORAL SCH (20:00)
[2016-12-13] MEDS ORDERED: Paricalcitol 1mcg cap ORAL SCH (20:00)
[2016-12-13] MEDS ORDERED: Sodium Bicarbonate 650mg Tab ORAL SCH (20:00)
[2016-12-13] MEDS: Cefepime 1gm/D5W 55ml IVPB SCH ×2 (21:49)
--- NOTE | 2016-12-13 22:33 | Pulmonology Progress Note ---
Assessment/Plan Assessment/Plan ASSESSMENT UTI acute renal failure on likely CRI bacteremia- SCON mitral anterior valve vegetation - per ECHO DM Hx of CVA HTN Anemia e/lyte imbalance PLAN OF CARE MS floor abx ID follows urine cx + Enterobacter( initial and repeated), blood cx + SCON 1/4 slow hydration nephro follows monitor renal parameters, worsening creat -up to 3.6, Vanco level-19 Mg stable after replacement avoid nephrotoxic, off diuretic renal US no hydro, normal bilateral echogenicity Subjective ROS Limited/Unobtainable: Yes Constitutional: Reports: anorexia, fatigue Genitourinary: Reports: dysuria, frequency, nocturia, urgency Neurologic: Reports: confusion, weakness Allergies: Coded Allergies: IODINE (Verified Allergy, Intermediate, Rash, 12/16/16) ALLOPURINOL (Verified Adverse Reaction, Intermediate, rash, 12/16/16) Objective Last 24 Hour Vital Signs Date Time Temp Pulse Resp B/P Pulse Ox O2 Delivery O2 Flow Rate FiO2 12/13/16 21:49 127/71 12/13/16 19:41 95 18 Room Air 12/13/16 17:39 63 127/71 12/13/16 16:00 97.9 63 20 127/71 93 Room Air 12/13/16 14:23 98.5 12/13/16 12:51 68 131/70 12/13/16 12:00 98.5 68 20 131/70 98 Room Air 12/13/16 08:18 167/90 12/13/16 08:17 167/90 12/13/16 08:17 68 167/90 12/13/16 08:17 167/90 12/13/16 08:07 97 18 Room Air 12/13/16 08:00 98.3 22 165/85 97 Room Air 12/13/16 06:53 167/90 12/13/16 04:00 97.2 68 18 167/90 100 Room Air 12/13/16 00:33 98.1 63 21 196/86 98 Room Air Intake and Output 12/12/16 12/13/16 19:00 07:00 Intake Total 1110 ml 530 ml Output Total 500 ml 550 ml Balance 610 ml -20 ml Intake Oral 510 ml IV Total 600 ml 530 ml Output Urine Total 500 ml 550 ml General Appearance: no acute distress HEENT: normocephalic, atraumatic, PERRL Respiratory/Chest: chest wall non-tender, decreased breath sounds, accessory muscle use Breasts: no masses Cardiovascular: normal peripheral pulses, normal rate, regular rhythm, no JVD Abdomen: normal bowel sounds, soft, non tender, no organomegaly Genitourinary: normal external genitalia Extremities: no cyanosis Skin: no rash 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, responsive, disoriented Microbiology Date/Time Source Procedure Growth Status 12/11/16 14:37 Blood Blood Culture - Preliminary Resulted 12/11/16 14:17 Blood Blood Culture - Preliminary NO GROWTH AFTER 24 HOURS Resulted 12/11/16 14:12 Nasal Nares Influenza Types A,B Antigen (SARAH) - Final Complete 12/11/16 23:00 Urine,Clean Catch Urine Culture - Preliminary Gram Negative Bacillus 1 Resulted 12/11/16 14:17 Urine,Clean Catch Urine Culture - Final Enterobacter Aerogenes Complete Laboratory Tests 12/13/16 05:05: Sodium Level 142, Potassium Level 3.6, Chloride Level 102, Carbon Dioxide Level 22, Anion Gap 18H, Blood Urea Nitrogen 27H, Creatinine 2.5H, Estimat Glomerular Filtration Rate , Glucose Level 98, Calcium Level 9.5 Current Medications Medications (Trade) Dose Ordered Sig/Letty Route PRN Reason Start Time Stop Time Status Last Admin Dose Admin Acetaminophen (Tylenol) 650 mg Q4H PRN ORAL T>100.5 12/11/16 18:00 01/10/17 17:59 Albuterol/ Ipratropium (DuoNeb 0.5-3(2.5)mg/3ml) 3 ml Q4H PRN HHN Shortness of Breath 12/11/16 18:00 12/16/16 17:59 Amlodipine Besylate (Norvasc) 5 mg BID ONCE ORAL 12/14/16 09:00 12/14/16 09:01 Aspirin (ASA) 81 mg DAILY ORAL 12/13/16 09:00 01/12/17 08:59 12/13/16 08:16 Atorvastatin Calcium (Lipitor) 10 mg QHS ORAL 12/13/16 21:00 01/12/17 20:59 12/13/16 21:49 Cefepime HCl/ Dextrose (Maxipime/D5W) 55 ml @ 110 mls/hr Q24H IVPB 12/11/16 20:00 12/18/16 19:59 12/13/16 21:49 Citalopram Hydrobromide (celeXA) 40 mg DAILY ORAL 12/13/16 09:00 01/12/17 08:59 12/13/16 08:16 Clonidine HCl (Catapres) 0.1 mg Q4H PRN ORAL SBP > 160 12/13/16 15:00 01/12/17 14:59 Clopidogrel Bisulfate (Plavix) 75 mg DAILY ORAL 12/12/16 09:00 01/11/17 08:59 12/13/16 08:17 Dextrose (Dextrose 50%) STAT PRN IV Hypoglycemia 12/11/16 21:15 01/10/17 21:14 Docusate Sodium (Colace) 100 mg TID ORAL 12/14/16 09:00 01/13/17 08:59 Heparin Sodium (Porcine) (Heparin 5000 units/ml) 5,000 units EVERY 12 HOURS SUBQ 12/11/16 21:00 01/10/17 20:59 12/13/16 21:51 Hydralazine HCl (Apresoline) 25 mg Q8HR ORAL 12/13/16 22:00 01/12/17 21:59 12/13/16 21:49 Insulin Aspart (NovoLOG) BEFORE MEALS AND HS SUBQ 12/11/16 22:30 01/10/17 22:29 12/13/16 21:52 Isosorbide Mononitrate (Imdur) 60 mg DAILY ORAL 12/13/16 09:00 01/12/17 08:59 12/13/16 08:17 Labetalol HCl (Normodyne) 200 mg TID ORAL 12/12/16 20:00 01/11/17 19:59 12/13/16 17:39 Morphine Sulfate (Morphine Sulfate) 2 mg Q4H PRN IVP Moderate Pain (Pain Scale 4-6) 12/11/16 18:00 12/18/16 17:59 12/13/16 13:53 Nitroglycerin 0.4 mg 0.4 mg Q5MIN X 3 DOSES PRN SL Prn Chest Pain 12/11/16 18:15 01/10/17 18:14 Non-Formulary Medication 1 ea 1 ea DAILY ORAL 12/13/16 09:00 01/12/17 08:59 UNV Ondansetron HCl (Zofran) 4 mg Q6H PRN IVP Nausea & Vomiting 12/11/16 18:00 01/10/17 17:59 Pantoprazole (Protonix) 40 mg BID ORAL 12/13/16 18:00 01/12/17 17:59 12/13/16 17:39 Polyethylene Glycol (Miralax) 17 gm DAILYPRN PRN ORAL Constipation 12/11/16 18:00 01/10/17 17:59 Sodium Chloride (Sodium Chloride 1000ml bag) 1,000 ml @ 75 mls/hr [id number] IVLG 12/13/16 15:00 01/12/17 14:59 12/13/16 15:03 Temazepam (Restoril) 15 mg HSPRN PRN ORAL Insomnia 12/11/16 21:00 12/18/16 20:59 Vancomycin HCl (Vanco rx to dose) 1 ea DAILY PRN MISC Per rx protocol 12/13/16 15:00 01/12/17 14:59 CHARLOTTE MARTINES Dec 13, 2016 22:33
[2016-12-14 04:00] VITALS: BP 141/72
[2016-12-14] MEDS: HydrALAZINE 25mg tab ORAL SCH ×3 (05:55→22:20)
[2016-12-14] MEDS: NovoLOG Insulin Flexpen SUBQ SCH ×4 (05:56→20:17)
[2016-12-14] MEDS: Morphine Sulfate 2mg/ml Inj IVP PRN (06:48)
[2016-12-14 07:26] LABS: BASOPHILS % (AUTO) 0.8 % (0.0-2.0); EOSINOPHILS % (AUTO) 3.5 % (0.0-3.0); LYMPHOCYTES % (AUTO) 20.5 % (20.0-45.0); MEAN CORPUSCULAR HEMOGLOBIN 23.9 PG (27.0-31.0); MEAN CORPUSCULAR HGB CONC 29.7 G/DL (32.0-36.0); MEAN CORPUSCULAR VOLUME 81 FL (80-99); MEAN PLATELET VOLUME 7.2 FL (6.5-10.1); NEUTROPHILS % (AUTO) 66.2 % (45.0-75.0); PLATELET COUNT 164 K/UL (150-450); RED BLOOD COUNT 3.87 M/UL (4.20-5.40)
[2016-12-14 07:36] LABS: FERRITIN 635 ng/mL (13-150)
[2016-12-14 07:38] LABS: ALANINE AMINOTRANSFERASE 5 U/L (3-33); ALBUMIN/GLOBULIN RATIO 1.1 (1.0-2.7); ANION GAP 19 (5-15); ASPARTATE AMINO TRANSFERASE 12 U/L (5-40); CALCIUM 8.9 mg/dL (8.6-10.2); CARBON DIOXIDE 19 mEQ/L (20-30); CHLORIDE 101 mEQ/L (98-107); CHOLESTEROL 114 mg/dL (< 200); CREATININE 3.6 mg/dL (0.5-0.9); CRP QUANT 0.8 mg/dL (< 0.5); LDL CHOLESTEROL (CALC.) 43 mg/dL (60-99); MAGNESIUM 1.4 mg/dL (1.7-2.5); PHOSPHORUS 4.5 mg/dL (2.5-4.8); POTASSIUM 3.9 mEQ/L (3.4-4.9); SODIUM 139 mEQ/L (135-145); TOTAL PROTEIN 6.3 g/dL (6.6-8.7); URIC ACID 11.7 mg/dL (3.0-7.5)
[2016-12-14 07:40] LABS: HEMOLYSIS 7; IRON 42 ug/dL (37-145); TOTAL IRON BINDING CAPACITY 157 ug/dL (250-400)
[2016-12-14 07:41] LABS: HEMOGLOBIN A1C 6.5 % (< 6.0)
[2016-12-14 08:00] VITALS: BP 149/73
[2016-12-14] MEDS: Citalopram 20mg Tab ORAL SCH (08:55)
[2016-12-14] MEDS: Aspirin Baby 81mg ORAL SCH (08:56)
[2016-12-14] MEDS: Docusate 100mg tablet ORAL SCH ×3 (08:56→18:08)
[2016-12-14] MEDS: Imdur 30mg tab ORAL SCH (08:56)
[2016-12-14] MEDS: Labetalol 200mg tab ORAL SCH ×3 (08:56→18:08)
[2016-12-14] MEDS: Heparin 5000 units/ml inj SUBQ SCH ×2 (09:01→20:34)
--- NOTE | 2016-12-14 10:57 | Infectious Diseases Prog Note ---
Assessment/Plan Assessment/Plan A: The patient is a 71-year-old female w UTI - UCx E.aerogenes US: Negative for hydronephrosis. Left renal calcifications, may be parenchymal or calyceal. Bilateral renal cysts. Empty bladder with Velasco catheter. CONS bacteremia 1/ c/w contaminant Negative influenza Afebrile without leukocytosis Diabetes History of CVA MRSA colonized NKDA Full Code PLAN: continue cefepime d# 4 / while still inpt. Ok to complete course with PO levaquin or bactrim at discharge f/u final cultures Monitor CBC. Monitor BMP Subjective Allergies: Coded Allergies: No Known Allergies (Unverified , 12/11/16) Subjective remains afebrile. comfortable cultures reviewed Objective Vital Signs Last 24 Hour Vital Signs Date Time Temp Pulse Resp B/P Pulse Ox O2 Delivery O2 Flow Rate FiO2 12/14/16 08:56 149/73 12/14/16 08:56 69 149/73 12/14/16 08:55 69 149/73 12/14/16 08:00 98.1 69 20 149/73 97 Room Air 12/14/16 07:18 98.1 12/14/16 05:55 141/72 12/14/16 04:00 98.4 68 19 141/72 95 Room Air 12/13/16 21:49 127/71 12/13/16 20:00 97.9 63 20 138/75 94 Room Air 12/13/16 19:41 95 18 Room Air 12/13/16 17:39 63 127/71 12/13/16 16:00 97.9 63 20 127/71 93 Room Air 12/13/16 12:51 68 131/70 12/13/16 12:00 98.5 68 20 131/70 98 Room Air Height (Feet): 5 Height (Inches): 2.00 Weight (Pounds): 145 General Appearance: no acute distress Respiratory/Chest: no respiratory distress Cardiovascular: normal rate, regular rhythm Abdomen: normal bowel sounds, soft, non tender, non distended Microbiology Date/Time Source Procedure Growth Status 12/11/16 14:37 Blood Blood Culture - Preliminary Staphylococcus Sp Coag Neg Resulted 12/11/16 14:17 Blood Blood Culture - Preliminary NO GROWTH AFTER 48 HOURS Resulted 12/11/16 14:17 Nasal Nares MRSA Culture - Final Staphylococcus Aureus - Mrsa Complete 12/11/16 14:12 Nasal Nares Influenza Types A,B Antigen (SARAH) - Final Complete 12/11/16 23:00 Urine,Clean Catch Urine Culture - Final Enterobacter Aerogenes Complete 12/11/16 14:17 Urine,Clean Catch Urine Culture - Final Enterobacter Aerogenes Complete 12/11/16 14:17 Rectum VRE Culture - Final NO VANCOMYCIN RESISTANT ENTEROCOCCUS ... Complete Laboratory Tests Test 12/14/16 05:40 White Blood Count 6.0 K/UL (4.8-10.8) Red Blood Count 3.87 M/UL (4.20-5.40) L Hemoglobin 9.3 G/DL (12.0-16.0) L Hematocrit 31.2 % (37.0-47.0) L Mean Corpuscular Volume 81 FL (80-99) Mean Corpuscular Hemoglobin 23.9 PG (27.0-31.0) L Mean Corpuscular Hemoglobin Concent 29.7 G/DL (32.0-36.0) L Red Cell Distribution Width 16.0 % (11.6-14.8) H Platelet Count 164 K/UL (150-450) Mean Platelet Volume 7.2 FL (6.5-10.1) Neutrophils (%) (Auto) 66.2 % (45.0-75.0) Lymphocytes (%) (Auto) 20.5 % (20.0-45.0) Monocytes (%) (Auto) 9.0 % (1.0-10.0) Eosinophils (%) (Auto) 3.5 % (0.0-3.0) H Basophils (%) (Auto) 0.8 % (0.0-2.0) Sodium Level 139 mEQ/L (135-145) Potassium Level 3.9 mEQ/L (3.4-4.9) Chloride Level 101 mEQ/L (98-107) Carbon Dioxide Level 19 mEQ/L (20-30) L Anion Gap 19 (5-15) H Blood Urea Nitrogen 33 mg/dL (7-23) H Creatinine 3.6 mg/dL (0.5-0.9) H Estimat Glomerular Filtration Rate mL/min (>60) Glucose Level 99 mg/dL (74-106) Hemoglobin A1c 6.5 % (< 6.0) H Uric Acid 11.7 mg/dL (3.0-7.5) H Calcium Level 8.9 mg/dL (8.6-10.2) Phosphorus Level 4.5 mg/dL (2.5-4.8) Magnesium Level 1.4 mg/dL (1.7-2.5) L Iron Level 42 ug/dL (37-145) Total Iron Binding Capacity 157 ug/dL (250-400) L Percent Iron Saturation 27 % (15-50) Unsaturated Iron Binding 115 ug/dL (112-346) Ferritin 635 ng/mL (13-150) H Total Bilirubin < 0.2 mg/dL (0.0-1.2) Gamma Glutamyl Transpeptidase 19 U/L (5-36) Aspartate Amino Transf (AST/SGOT) 12 U/L (5-40) Alanine Aminotransferase (ALT/SGPT) 5 U/L (3-33) Alkaline Phosphatase 58 U/L (35-104) Total Creatine Kinase 35 U/L (26-140) C-Reactive Protein, Quantitative 0.8 mg/dL (< 0.5) H Pro-B-Type Natriuretic Peptide 714 pg/mL (0-125) H Total Protein 6.3 g/dL (6.6-8.7) L Albumin 3.3 g/dL (3.5-5.2) L Globulin 3.0 g/dL Albumin/Globulin Ratio 1.1 (1.0-2.7) Triglycerides Level 76 mg/dL (< 150) Cholesterol Level 114 mg/dL (< 200) LDL Cholesterol 43 mg/dL (60-99) L HDL Cholesterol 56 mg/dL (> 60) Cholesterol/HDL Ratio 2.0 (3.3-4.4) L Vitamin B12 Level > 2000 pg/mL (211-946) H Folate Pending Thyroid Stimulating Hormone (TSH) 2.790 uIU/mL (0.300-4.500) Random Vancomycin Level 19.0 ug/mL Current Medications Medications (Trade) Dose Ordered Sig/Letty Route PRN Reason Start Time Stop Time Status Last Admin Dose Admin Acetaminophen (Tylenol) 650 mg Q4H PRN ORAL T>100.5 12/11/16 18:00 01/10/17 17:59 Albuterol/ Ipratropium (DuoNeb 0.5-3(2.5)mg/3ml) 3 ml Q4H PRN HHN Shortness of Breath 12/11/16 18:00 12/16/16 17:59 Aspirin (ASA) 81 mg DAILY ORAL 12/13/16 09:00 01/12/17 08:59 12/14/16 08:56 Atorvastatin Calcium (Lipitor) 10 mg QHS ORAL 12/13/16 21:00 01/12/17 20:59 12/13/16 21:49 Cefepime HCl/ Dextrose (Maxipime/D5W) 55 ml @ 110 mls/hr Q24H IVPB 12/11/16 20:00 12/18/16 19:59 12/13/16 21:49 Citalopram Hydrobromide (celeXA) 40 mg DAILY ORAL 12/13/16 09:00 01/12/17 08:59 12/14/16 08:55 Clonidine HCl (Catapres) 0.1 mg Q4H PRN ORAL SBP > 160 12/13/16 15:00 01/12/17 14:59 Clopidogrel Bisulfate (Plavix) 75 mg DAILY ORAL 12/12/16 09:00 01/11/17 08:59 12/14/16 08:55 Dextrose (Dextrose 50%) STAT PRN IV Hypoglycemia 12/11/16 21:15 01/10/17 21:14 Docusate Sodium (Colace) 100 mg TID ORAL 12/14/16 09:00 01/13/17 08:59 12/14/16 08:56 Heparin Sodium (Porcine) (Heparin 5000 units/ml) 5,000 units EVERY 12 HOURS SUBQ 12/11/16 21:00 01/10/17 20:59 12/14/16 09:01 Hydralazine HCl (Apresoline) 25 mg Q8HR ORAL 12/13/16 22:00 01/12/17 21:59 12/14/16 05:55 Insulin Aspart (NovoLOG) BEFORE MEALS AND HS SUBQ 12/11/16 22:30 01/10/17 22:29 12/13/16 21:52 Isosorbide Mononitrate (Imdur) 60 mg DAILY ORAL 12/13/16 09:00 01/12/17 08:59 12/14/16 08:56 Labetalol HCl (Normodyne) 200 mg TID ORAL 12/12/16 20:00 01/11/17 19:59 12/14/16 08:56 Morphine Sulfate (Morphine Sulfate) 2 mg Q4H PRN IVP Moderate Pain (Pain Scale 4-6) 12/11/16 18:00 12/18/16 17:59 12/14/16 06:48 Nitroglycerin 0.4 mg 0.4 mg Q5MIN X 3 DOSES PRN SL Prn Chest Pain 12/11/16 18:15 01/10/17 18:14 Non-Formulary Medication 1 ea 1 ea DAILY ORAL 12/13/16 09:00 01/12/17 08:59 UNV Ondansetron HCl (Zofran) 4 mg Q6H PRN IVP Nausea & Vomiting 12/11/16 18:00 01/10/17 17:59 Pantoprazole (Protonix) 40 mg BID ORAL 12/13/16 18:00 01/12/17 17:59 12/14/16 08:56 Polyethylene Glycol (Miralax) 17 gm DAILYPRN PRN ORAL Constipation 12/11/16 18:00 01/10/17 17:59 Sodium Chloride (Sodium Chloride 1000ml bag) 1,000 ml @ 75 mls/hr [id number] IVLG 12/13/16 15:00 01/12/17 14:59 12/13/16 15:03 Temazepam (Restoril) 15 mg HSPRN PRN ORAL Insomnia 12/11/16 21:00 12/18/16 20:59 Vancomycin HCl (Vanco rx to dose) 1 ea DAILY PRN MISC Per rx protocol 12/13/16 15:00 01/12/17 14:59 EVAN HOGUE 17, 2017 10:57
--- NOTE | 2016-12-14 12:33 | Pulmonology Progress Note ---
Assessment/Plan Assessment/Plan ASSESSMENT UTI acute renal failure on likely CRI DM Hx of CVA HTN Anemia e/lyte imbalance PLAN OF CARE MS floor abx ID follows urien cx + Enterobacter( initial and repeated), blood cx + SCON ( real? contamination?) slow hydration nephro follows monitor renal parameters, worsening creat -up to 3.6, Vanco level-19 replace Mg today avoid nephrotoxic, off diuretic renal US no hydro, normal bilateral echogenicity Echo pending BP management with multiple regimen of anti HTN and optimize as needed anemia w/up noted, high ferritin continue ASA , statin DVT GI prophylaxis Bowel regimen case discussed and evaluated by supervising physician Subjective Allergies: Coded Allergies: No Known Allergies (Unverified , 12/11/16) Subjective afebrile, no leukocytosis creat up to 3.6 today denies abdominal/ flank pain no SOB no CP Mg-1,4 Objective Last 24 Hour Vital Signs Date Time Temp Pulse Resp B/P Pulse Ox O2 Delivery O2 Flow Rate FiO2 12/14/16 10:10 96 18 Room Air 12/14/16 08:56 149/73 12/14/16 08:56 69 149/73 12/14/16 08:55 69 149/73 12/14/16 08:00 98.1 69 20 149/73 97 Room Air 12/14/16 07:18 98.1 12/14/16 05:55 141/72 12/14/16 04:00 98.4 68 19 141/72 95 Room Air 12/13/16 21:49 127/71 12/13/16 20:00 97.9 63 20 138/75 94 Room Air 12/13/16 19:41 95 18 Room Air 12/13/16 17:39 63 127/71 12/13/16 16:00 97.9 63 20 127/71 93 Room Air 12/13/16 12:51 68 131/70 Intake and Output 12/13/16 12/14/16 19:00 07:00 Intake Total 1585 ml 840 ml Output Total 400 ml 450 ml Balance 1185 ml 390 ml Intake Oral 960 ml 240 ml IV Total 625 ml 600 ml Output Urine Total 400 ml 450 ml General Appearance: WD/WN, no acute distress HEENT: normocephalic, atraumatic, anicteric, mucous membranes moist Respiratory/Chest: lungs clear, no respiratory distress, no accessory muscle use Cardiovascular: normal peripheral pulses, normal rate, regular rhythm, no JVD Abdomen: normal bowel sounds, soft, non tender, non distended Genitourinary: normal external genitalia Extremities: no edema Neurologic/Psychiatric: alert, responsive Musculoskeletal: normal muscle bulk Microbiology Date/Time Source Procedure Growth Status 12/11/16 14:37 Blood Blood Culture - Preliminary Staphylococcus Sp Coag Neg Resulted 12/11/16 14:17 Blood Blood Culture - Preliminary NO GROWTH AFTER 48 HOURS Resulted 12/11/16 14:17 Nasal Nares MRSA Culture - Final Staphylococcus Aureus - Mrsa Complete 12/11/16 14:12 Nasal Nares Influenza Types A,B Antigen (SARAH) - Final Complete 12/11/16 23:00 Urine,Clean Catch Urine Culture - Final Enterobacter Aerogenes Complete 12/11/16 14:17 Urine,Clean Catch Urine Culture - Final Enterobacter Aerogenes Complete 12/11/16 14:17 Rectum VRE Culture - Final NO VANCOMYCIN RESISTANT ENTEROCOCCUS ... Complete Laboratory Tests 12/14/16 05:40: White Blood Count 6.0, Red Blood Count 3.87L, Hemoglobin 9.3L, Hematocrit 31.2L , Mean Corpuscular Volume 81, Mean Corpuscular Hemoglobin 23.9L, Mean Corpuscular Hemoglobin Concent 29.7L, Red Cell Distribution Width 16.0H, Platelet Count 164, Mean Platelet Volume 7.2, Neutrophils (%) (Auto) 66.2, Lymphocytes (%) (Auto) 20.5, Monocytes (%) (Auto) 9.0, Eosinophils (%) (Auto) 3.5H, Basophils (%) (Auto) 0.8, Sodium Level 139, Potassium Level 3.9, Chloride Level 101, Carbon Dioxide Level 19L, Anion Gap 19H, Blood Urea Nitrogen 33H, Creatinine 3.6H, Estimat Glomerular Filtration Rate , Glucose Level 99, Hemoglobin A1c 6.5H, Uric Acid 11.7H, Calcium Level 8.9, Phosphorus Level 4.5, Magnesium Level 1.4L, Iron Level 42, Total Iron Binding Capacity 157L, Percent Iron Saturation 27, Unsaturated Iron Binding 115, Ferritin 635H, Total Bilirubin < 0.2, Gamma Glutamyl Transpeptidase 19, Aspartate Amino Transf (AST/ SGOT) 12, Alanine Aminotransferase (ALT/SGPT) 5, Alkaline Phosphatase 58, Total Creatine Kinase 35, C-Reactive Protein, Quantitative 0.8H, Pro-B-Type Natriuretic Peptide 714H, Total Protein 6.3L, Albumin 3.3L, Globulin 3.0, Albumin/Globulin Ratio 1.1, Triglycerides Level 76, Cholesterol Level 114, LDL Cholesterol 43L, HDL Cholesterol 56, Cholesterol/HDL Ratio 2.0L, Vitamin B12 Level > 2000H, Folate [Pending], Thyroid Stimulating Hormone (TSH) 2.790, Random Vancomycin Level 19.0 Current Medications Medications (Trade) Dose Ordered Sig/Letty Route PRN Reason Start Time Stop Time Status Last Admin Dose Admin Acetaminophen (Tylenol) 650 mg Q4H PRN ORAL T>100.5 12/11/16 18:00 01/10/17 17:59 Albuterol/ Ipratropium (DuoNeb 0.5-3(2.5)mg/3ml) 3 ml Q4H PRN HHN Shortness of Breath 12/11/16 18:00 12/16/16 17:59 Aspirin (ASA) 81 mg DAILY ORAL 12/13/16 09:00 01/12/17 08:59 12/14/16 08:56 Atorvastatin Calcium (Lipitor) 10 mg QHS ORAL 12/13/16 21:00 01/12/17 20:59 12/13/16 21:49 Cefepime HCl/ Dextrose (Maxipime/D5W) 55 ml @ 110 mls/hr Q24H IVPB 12/11/16 20:00 12/18/16 19:59 12/13/16 21:49 Citalopram Hydrobromide (celeXA) 40 mg DAILY ORAL 12/13/16 09:00 01/12/17 08:59 12/14/16 08:55 Clonidine HCl (Catapres) 0.1 mg Q4H PRN ORAL SBP > 160 12/13/16 15:00 01/12/17 14:59 Clopidogrel Bisulfate (Plavix) 75 mg DAILY ORAL 12/12/16 09:00 01/11/17 08:59 12/14/16 08:55 Dextrose (Dextrose 50%) STAT PRN IV Hypoglycemia 12/11/16 21:15 01/10/17 21:14 Docusate Sodium (Colace) 100 mg TID ORAL 12/14/16 09:00 01/13/17 08:59 12/14/16 08:56 Heparin Sodium (Porcine) (Heparin 5000 units/ml) 5,000 units EVERY 12 HOURS SUBQ 12/11/16 21:00 01/10/17 20:59 12/14/16 09:01 Hydralazine HCl (Apresoline) 25 mg Q8HR ORAL 12/13/16 22:00 01/12/17 21:59 12/14/16 05:55 Insulin Aspart (NovoLOG) BEFORE MEALS AND HS SUBQ 12/11/16 22:30 01/10/17 22:29 12/13/16 21:52 Isosorbide Mononitrate (Imdur) 60 mg DAILY ORAL 12/13/16 09:00 01/12/17 08:59 12/14/16 08:56 Labetalol HCl (Normodyne) 200 mg TID ORAL 12/12/16 20:00 01/11/17 19:59 12/14/16 08:56 Morphine Sulfate (Morphine Sulfate) 2 mg Q4H PRN IVP Moderate Pain (Pain Scale 4-6) 12/11/16 18:00 12/18/16 17:59 12/14/16 06:48 Nitroglycerin 0.4 mg 0.4 mg Q5MIN X 3 DOSES PRN SL Prn Chest Pain 12/11/16 18:15 01/10/17 18:14 Non-Formulary Medication 1 ea 1 ea DAILY ORAL 12/13/16 09:00 01/12/17 08:59 UNV Ondansetron HCl (Zofran) 4 mg Q6H PRN IVP Nausea & Vomiting 12/11/16 18:00 01/10/17 17:59 Pantoprazole (Protonix) 40 mg BID ORAL 12/13/16 18:00 01/12/17 17:59 12/14/16 08:56 Polyethylene Glycol (Miralax) 17 gm DAILYPRN PRN ORAL Constipation 12/11/16 18:00 01/10/17 17:59 Sodium Chloride (Sodium Chloride 1000ml bag) 1,000 ml @ 75 mls/hr [id number] IVLG 12/13/16 15:00 01/12/17 14:59 12/14/16 09:00 Temazepam (Restoril) 15 mg HSPRN PRN ORAL Insomnia 12/11/16 21:00 12/18/16 20:59 Scottie ([facility])Sadia NP Dec 14, 2016 12:33
--- NOTE | 2016-12-14 13:53 | General Progress Note ---
Assessment/Plan Assessment/Plan status; Acute renal failure , PreRenal mainly ( being treated with diuretics...? CHF ? high Vanco ? ? Underlying Diabetic Hypertensive kidney disease UTI HTN DM High Cholestrol Microcytic Anemia Plan; Adjust BP meds- Slow Hydrate- DC diuretics 2D echo- results noted anemia zee monitor Vanco level per orders Negative for hydronephrosis Left renal calcifications, may be parenchymal or calyceal Bilateral renal cysts Empty bladder with Velasco catheter. Subjective ROS Limited/Unobtainable: No Constitutional: Reports: malaise Allergies: Coded Allergies: No Known Allergies (Unverified , 12/11/16) Objective Last 24 Hour Vital Signs Date Time Temp Pulse Resp B/P Pulse Ox O2 Delivery O2 Flow Rate FiO2 12/14/16 13:25 149/73 12/14/16 13:25 96 149/73 12/14/16 10:10 96 18 Room Air 12/14/16 08:56 149/73 12/14/16 08:56 69 149/73 12/14/16 08:55 69 149/73 12/14/16 08:00 98.1 69 20 149/73 97 Room Air 12/14/16 07:18 98.1 12/14/16 05:55 141/72 12/14/16 04:00 98.4 68 19 141/72 95 Room Air 12/13/16 21:49 127/71 12/13/16 20:00 97.9 63 20 138/75 94 Room Air 12/13/16 19:41 95 18 Room Air 12/13/16 17:39 63 127/71 12/13/16 16:00 97.9 63 20 127/71 93 Room Air Intake and Output 12/13/16 12/14/16 19:00 07:00 Intake Total 1585 ml 840 ml Output Total 400 ml 450 ml Balance 1185 ml 390 ml Intake Oral 960 ml 240 ml IV Total 625 ml 600 ml Output Urine Total 400 ml 450 ml Laboratory Tests 12/14/16 05:40: White Blood Count 6.0, Red Blood Count 3.87L, Hemoglobin 9.3L, Hematocrit 31.2L , Mean Corpuscular Volume 81, Mean Corpuscular Hemoglobin 23.9L, Mean Corpuscular Hemoglobin Concent 29.7L, Red Cell Distribution Width 16.0H, Platelet Count 164, Mean Platelet Volume 7.2, Neutrophils (%) (Auto) 66.2, Lymphocytes (%) (Auto) 20.5, Monocytes (%) (Auto) 9.0, Eosinophils (%) (Auto) 3.5H, Basophils (%) (Auto) 0.8, Sodium Level 139, Potassium Level 3.9, Chloride Level 101, Carbon Dioxide Level 19L, Anion Gap 19H, Blood Urea Nitrogen 33H, Creatinine 3.6H, Estimat Glomerular Filtration Rate , Glucose Level 99, Hemoglobin A1c 6.5H, Uric Acid 11.7H, Calcium Level 8.9, Phosphorus Level 4.5, Magnesium Level 1.4L, Iron Level 42, Total Iron Binding Capacity 157L, Percent Iron Saturation 27, Unsaturated Iron Binding 115, Ferritin 635H, Total Bilirubin < 0.2, Gamma Glutamyl Transpeptidase 19, Aspartate Amino Transf (AST/ SGOT) 12, Alanine Aminotransferase (ALT/SGPT) 5, Alkaline Phosphatase 58, Total Creatine Kinase 35, C-Reactive Protein, Quantitative 0.8H, Pro-B-Type Natriuretic Peptide 714H, Total Protein 6.3L, Albumin 3.3L, Globulin 3.0, Albumin/Globulin Ratio 1.1, Triglycerides Level 76, Cholesterol Level 114, LDL Cholesterol 43L, HDL Cholesterol 56, Cholesterol/HDL Ratio 2.0L, Vitamin B12 Level > 2000H, Folate [Pending], Thyroid Stimulating Hormone (TSH) 2.790, Random Vancomycin Level 19.0 Height (Feet): 5 Height (Inches): 2.00 Weight (Pounds): 145 General Appearance: no apparent distress Cardiovascular: tachycardia Respiratory/Chest: decreased breath sounds Abdomen: soft Objective other physical exam not changed ROD PATE Dec 14, 2016 13:53
--- NOTE | 2016-12-14 14:25 | Cardiology Report ---
APPROVED REPORT EXAM: Two-dimensional and M-mode echocardiogram with Doppler and color Doppler. INDICATION Congestive Heart Failure M-Mode DIMENSIONS IVSd0.9 (0.7-1.1cm)Left Atrium (MM)2.6 (1.6-4.0cm) LVDd4.2 (3.5-5.6cm)Aortic Root2.6 (2.0-3.7cm) PWd0.7 (0.7-1.1cm)Aortic Cusp Exc.1.9 (1.5-2.0cm) LVDs1.7 (2.5-4.0cm) PWs0.7 cm Technically difficult study due to poor acoustic windows. Normal left ventricular chamber size, systolic function and wall motion. Left ventricular ejection fraction estimated to be 70-75 %. Mild left ventricular hypertrophy. No evidence of pericardial fat or effusion. Right cardiac chamber sizes are within normal limits. Mild left atrial enlargement by 2D. Focal aortic valve sclerosis with adequate cusp excursion Thickened mitral valve leaflets with normal excursion. Mild mitral annulus and aortic root calcification. Pulmonic valve not well visualized. Normal tricuspid valve structure. Difficult to visualize IVC . Echodensity seen on anterior mitral valve (vegitation), consider SHADI if clinically indicated. A color flow and spectral Doppler study was performed and revealed: No aortic regurgitation. Trace mitral regurgitation. Left ventricular diastolic dysfunction grade 1. Trace tricuspid regurgitation. Tricuspid systolic velocities suggests peak right ventricular systolic pressure of 21 mmHg
[2016-12-14] MEDS: Allopurinol 100mg Tab ORAL SCH (14:32)
[2016-12-14 16:00] VITALS: BP 129/68
[2016-12-14 20:00] VITALS: BP 139/76
[2016-12-14] MEDS: Cefepime 500mg in D5W 55ml IVPB SCH (20:30)
[2016-12-15] VITALS (7 sets, daily range): BP systolic 125–150; BP diastolic 66–78
[2016-12-15] MEDS: Morphine Sulfate 2mg/ml Inj IVP PRN ×2 (00:05→20:10)
[2016-12-15] MEDS: HydrALAZINE 25mg tab ORAL SCH ×3 (05:47→23:48)
[2016-12-15] MEDS: NovoLOG Insulin Flexpen SUBQ SCH ×4 (06:06→21:00)
[2016-12-15 08:20] LABS: BASOPHILS % (AUTO) 0.4 % (0.0-2.0); EOSINOPHILS % (AUTO) 3.5 % (0.0-3.0); LYMPHOCYTES % (AUTO) 13.5 % (20.0-45.0); MEAN CORPUSCULAR HEMOGLOBIN 24.6 PG (27.0-31.0); MEAN CORPUSCULAR HGB CONC 31.2 G/DL (32.0-36.0); MEAN CORPUSCULAR VOLUME 79 FL (80-99); MEAN PLATELET VOLUME 8.2 FL (6.5-10.1); MONOCYTES % (AUTO) 7.7 % (1.0-10.0); PLATELET COUNT 180 K/UL (150-450); RED BLOOD COUNT 3.96 M/UL (4.20-5.40); RED CELL DISTRIBUTION WIDTH 16.5 % (11.6-14.8); WHITE BLOOD COUNT 4.8 K/UL (4.8-10.8)
[2016-12-15 08:46] LABS: ALANINE AMINOTRANSFERASE 5 U/L (3-33); ANION GAP 18 (5-15); ASPARTATE AMINO TRANSFERASE 12 U/L (5-40); CALCIUM 8.8 mg/dL (8.6-10.2); CARBON DIOXIDE 19 mEQ/L (20-30); CHLORIDE 104 mEQ/L (98-107); CREATININE 3.5 mg/dL (0.5-0.9); HEMOLYSIS 1; MAGNESIUM 1.9 mg/dL (1.7-2.5); SODIUM 141 mEQ/L (135-145)
[2016-12-15] MEDS: Citalopram 20mg Tab ORAL SCH (08:58)
[2016-12-15] MEDS: Allopurinol 100mg Tab ORAL SCH (08:58)
[2016-12-15] MEDS: Labetalol 200mg tab ORAL SCH ×3 (08:58→17:06)
[2016-12-15] MEDS: Docusate 100mg tablet ORAL SCH ×3 (08:58→17:06)
[2016-12-15] MEDS: Aspirin Baby 81mg ORAL SCH (08:59)
[2016-12-15] MEDS: Imdur 30mg tab ORAL SCH (08:59)
[2016-12-15] MEDS: Heparin 5000 units/ml inj SUBQ SCH ×2 (09:00→20:27)
[2016-12-15 09:01] LABS: PHOSPHORUS 4.2 mg/dL (2.5-4.8); URIC ACID 11.2 mg/dL (3.0-7.5)
--- NOTE | 2016-12-15 10:16 | General Progress Note ---
Assessment/Plan Status: stable Assessment/Plan status; Acute renal failure , PreRenal mainly ( being treated with diuretics...? CHF ? high Vanco ? ? Underlying Diabetic Hypertensive kidney disease HyperCalcemia UTI HTN DM High Cholestrol Microcytic Anemia Plan; Adjust BP meds- increase hydralazine Aredia for high Ca Slow Hydrate- DC diuretics 2D echo- results noted anemia zee monitor Vanco level per orders Negative for hydronephrosis Left renal calcifications, may be parenchymal or calyceal Bilateral renal cysts Empty bladder with Velasco catheter. Subjective ROS Limited/Unobtainable: No Constitutional: Reports: malaise, weakness Allergies: Coded Allergies: No Known Allergies (Unverified , 12/11/16) Objective Last 24 Hour Vital Signs Date Time Temp Pulse Resp B/P Pulse Ox O2 Delivery O2 Flow Rate FiO2 12/15/16 08:59 150/72 12/15/16 08:58 74 150/72 12/15/16 08:42 98.1 74 18 150/72 98 12/15/16 07:20 75 20 Room Air 21 12/15/16 05:47 134/75 12/15/16 00:35 97.5 12/15/16 00:00 97.2 71 18 125/78 98 Room Air 12/14/16 22:20 139/76 12/14/16 20:00 97.5 65 19 139/76 100 Room Air 12/14/16 19:30 70 20 Room Air 21 12/14/16 18:08 69 129/68 12/14/16 16:00 98.1 69 20 129/68 96 Room Air 12/14/16 13:25 149/73 12/14/16 13:25 96 149/73 Intake and Output 12/14/16 12/15/16 19:00 07:00 Intake Total 1380 ml 1285 ml Output Total 625 ml 350 ml Balance 755 ml 935 ml Intake Oral 480 ml 480 ml IV Total 900 ml 805 ml Output Urine Total 625 ml 350 ml Laboratory Tests 12/15/16 05:15: White Blood Count 4.8, Red Blood Count 3.96L, Hemoglobin 9.7L, Hematocrit 31.2L , Mean Corpuscular Volume 79L, Mean Corpuscular Hemoglobin 24.6L, Mean Corpuscular Hemoglobin Concent 31.2L, Red Cell Distribution Width 16.5H, Platelet Count 180, Mean Platelet Volume 8.2, Neutrophils (%) (Auto) 75.0, Lymphocytes (%) (Auto) 13.5L, Monocytes (%) (Auto) 7.7, Eosinophils (%) (Auto) 3.5H, Basophils (%) (Auto) 0.4, Sodium Level 141, Potassium Level 4.0, Chloride Level 104, Carbon Dioxide Level 19L, Anion Gap 18H, Blood Urea Nitrogen 34H, Creatinine 3.5H, Estimat Glomerular Filtration Rate , Glucose Level 88, Uric Acid 11.2H, Calcium Level 8.8, Phosphorus Level 4.2, Magnesium Level 1.9, Total Bilirubin 0.2, Aspartate Amino Transf (AST/SGOT) 12, Alanine Aminotransferase ( ALT/SGPT) 5, Alkaline Phosphatase 57, Pro-B-Type Natriuretic Peptide 530H, Total Protein 6.0L, Albumin 3.1L, Globulin 2.9, Albumin/Globulin Ratio 1.0 Height (Feet): 5 Height (Inches): 2.00 Weight (Pounds): 145 General Appearance: no apparent distress Objective other physical exam not changed ROD PATE Dec 15, 2016 10:16
--- NOTE | 2016-12-15 10:43 | Infectious Diseases Prog Note ---
Assessment/Plan Assessment/Plan ASSESSMENT: 71-year-old female with: CONS bacteremia 10/03 with LALITO r/o SBE - TTE: anterior mitral valve vegitation UTI - UCx E.aerogenes US: Negative for hydronephrosis. Left renal calcifications, may be parenchymal or calyceal. Bilateral renal cysts. Empty bladder with Velasco catheter. Negative influenza Afebrile without leukocytosis Diabetes History of CVA MRSA colonized NKDA Full Code PLAN: repeat BCx, start IV vancomycin d# 1, continue cefepime d# 5 / 7 recommend SHADI Monitor CBC, temperatures Monitor BMP Subjective Allergies: Coded Allergies: No Known Allergies (Unverified , 12/11/16) Subjective remains afebrile. comfortable MV veg on TTE Objective Vital Signs Last 24 Hour Vital Signs Date Time Temp Pulse Resp B/P Pulse Ox O2 Delivery O2 Flow Rate FiO2 12/15/16 08:59 150/72 12/15/16 08:58 74 150/72 12/15/16 08:42 98.1 74 18 150/72 98 12/15/16 07:20 75 20 Room Air 21 12/15/16 05:47 134/75 12/15/16 00:35 97.5 12/15/16 00:00 97.2 71 18 125/78 98 Room Air 12/14/16 22:20 139/76 12/14/16 20:00 97.5 65 19 139/76 100 Room Air 12/14/16 19:30 70 20 Room Air 21 12/14/16 18:08 69 129/68 12/14/16 16:00 98.1 69 20 129/68 96 Room Air 12/14/16 13:25 149/73 12/14/16 13:25 96 149/73 Height (Feet): 5 Height (Inches): 2.00 Weight (Pounds): 145 General Appearance: no acute distress Respiratory/Chest: no respiratory distress Cardiovascular: normal rate, regular rhythm Abdomen: normal bowel sounds, soft, non tender, non distended Laboratory Tests Test 12/15/16 05:15 White Blood Count 4.8 K/UL (4.8-10.8) Red Blood Count 3.96 M/UL (4.20-5.40) L Hemoglobin 9.7 G/DL (12.0-16.0) L Hematocrit 31.2 % (37.0-47.0) L Mean Corpuscular Volume 79 FL (80-99) L Mean Corpuscular Hemoglobin 24.6 PG (27.0-31.0) L Mean Corpuscular Hemoglobin Concent 31.2 G/DL (32.0-36.0) L Red Cell Distribution Width 16.5 % (11.6-14.8) H Platelet Count 180 K/UL (150-450) Mean Platelet Volume 8.2 FL (6.5-10.1) Neutrophils (%) (Auto) 75.0 % (45.0-75.0) Lymphocytes (%) (Auto) 13.5 % (20.0-45.0) L Monocytes (%) (Auto) 7.7 % (1.0-10.0) Eosinophils (%) (Auto) 3.5 % (0.0-3.0) H Basophils (%) (Auto) 0.4 % (0.0-2.0) Sodium Level 141 mEQ/L (135-145) Potassium Level 4.0 mEQ/L (3.4-4.9) Chloride Level 104 mEQ/L (98-107) Carbon Dioxide Level 19 mEQ/L (20-30) L Anion Gap 18 (5-15) H Blood Urea Nitrogen 34 mg/dL (7-23) H Creatinine 3.5 mg/dL (0.5-0.9) H Estimat Glomerular Filtration Rate mL/min (>60) Glucose Level 88 mg/dL (74-106) Uric Acid 11.2 mg/dL (3.0-7.5) H Calcium Level 8.8 mg/dL (8.6-10.2) Phosphorus Level 4.2 mg/dL (2.5-4.8) Magnesium Level 1.9 mg/dL (1.7-2.5) Total Bilirubin 0.2 mg/dL (0.0-1.2) Aspartate Amino Transf (AST/SGOT) 12 U/L (5-40) Alanine Aminotransferase (ALT/SGPT) 5 U/L (3-33) Alkaline Phosphatase 57 U/L (35-104) Pro-B-Type Natriuretic Peptide 530 pg/mL (0-125) H Total Protein 6.0 g/dL (6.6-8.7) L Albumin 3.1 g/dL (3.5-5.2) L Globulin 2.9 g/dL Albumin/Globulin Ratio 1.0 (1.0-2.7) Current Medications Medications (Trade) Dose Ordered Sig/Letty Route PRN Reason Start Time Stop Time Status Last Admin Dose Admin Acetaminophen (Tylenol) 650 mg Q4H PRN ORAL T>100.5 12/11/16 18:00 01/10/17 17:59 Albuterol/ Ipratropium (DuoNeb 0.5-3(2.5)mg/3ml) 3 ml Q4H PRN HHN Shortness of Breath 12/11/16 18:00 12/16/16 17:59 Allopurinol (Zyloprim) 200 mg DAILY ORAL 12/14/16 14:30 01/13/17 14:29 12/15/16 08:58 Aspirin (ASA) 81 mg DAILY ORAL 12/13/16 09:00 01/12/17 08:59 12/15/16 08:59 Atorvastatin Calcium (Lipitor) 10 mg QHS ORAL 12/13/16 21:00 01/12/17 20:59 12/14/16 20:30 Cefepime HCl/ Dextrose (Maxipime/D5W) 55 ml @ 110 mls/hr Q24H IVPB 12/14/16 20:00 12/17/16 23:59 12/14/16 20:30 Citalopram Hydrobromide (celeXA) 40 mg DAILY ORAL 12/13/16 09:00 01/12/17 08:59 12/15/16 08:58 Clonidine HCl (Catapres) 0.1 mg Q4H PRN ORAL SBP > 160 12/13/16 15:00 01/12/17 14:59 Clopidogrel Bisulfate (Plavix) 75 mg DAILY ORAL 12/12/16 09:00 01/11/17 08:59 12/15/16 08:58 Dextrose (Dextrose 50%) STAT PRN IV Hypoglycemia 12/11/16 21:15 01/10/17 21:14 Docusate Sodium (Colace) 100 mg TID ORAL 12/14/16 09:00 01/13/17 08:59 12/15/16 08:58 Heparin Sodium (Porcine) (Heparin 5000 units/ml) 5,000 units EVERY 12 HOURS SUBQ 12/11/16 21:00 01/10/17 20:59 12/15/16 09:00 Hydralazine HCl 50 mg 50 mg Q8HR ORAL 12/15/16 14:00 01/14/17 13:59 Insulin Aspart (NovoLOG) BEFORE MEALS AND HS SUBQ 12/11/16 22:30 01/10/17 22:29 12/14/16 16:47 Isosorbide Mononitrate (Imdur) 60 mg DAILY ORAL 12/13/16 09:00 01/12/17 08:59 12/15/16 08:59 Labetalol HCl (Normodyne) 200 mg TID ORAL 12/12/16 20:00 01/11/17 19:59 12/15/16 08:58 Morphine Sulfate (Morphine Sulfate) 2 mg Q4H PRN IVP Moderate Pain (Pain Scale 4-6) 12/11/16 18:00 12/18/16 17:59 12/15/16 00:05 Nitroglycerin (Ntg) 0.4 mg Q5MIN X 3 DOSES PRN SL Prn Chest Pain 12/11/16 18:15 01/10/17 18:14 Non-Formulary Medication 1 ea 1 ea DAILY ORAL 12/13/16 09:00 01/12/17 08:59 UNV Ondansetron HCl (Zofran) 4 mg Q6H PRN IVP Nausea & Vomiting 12/11/16 18:00 01/10/17 17:59 Pamidronate Disodium/Sodium Chloride (Aredia/NS) 550 ml @ 137.5 mls/ hr ONCE ONCE IVPB 12/15/16 12:00 12/15/16 15:59 Pantoprazole 40 mg 40 mg BID ORAL 12/13/16 18:00 01/12/17 17:59 12/15/16 08:58 Polyethylene Glycol (Miralax) 17 gm DAILYPRN PRN ORAL Constipation 12/11/16 18:00 01/10/17 17:59 Sodium Chloride (Sodium Chloride 1000ml bag) 1,000 ml @ 75 mls/hr [id number] IVLG 12/13/16 15:00 01/12/17 14:59 12/15/16 05:47 Temazepam (Restoril) 15 mg HSPRN PRN ORAL Insomnia 12/11/16 21:00 12/18/16 20:59 EVAN HOGUE Dec 15, 2016 10:43
[2016-12-15] MEDS ORDERED: Pamidronate Disodium Inj 60 MG in Sodium Chloride 550 ML IVPB ONE (12:00)
[2016-12-15] MEDS ORDERED: Vancomycin 1250mg/D5W 275ml IVPB SCH ×2 (13:00)
[2016-12-15] MEDS ORDERED: Vancomycin 500mg/D5W 110ml IVPB ONE ×2 (13:00)
--- NOTE | 2016-12-15 14:29 | Pulmonology Progress Note ---
Assessment/Plan Assessment/Plan ASSESSMENT UTI acute renal failure on likely CRI bacteremia- SCON mitral anterior valve vegetation - per ECHO DM Hx of CVA HTN Anemia e/lyte imbalance PLAN OF CARE MS floor abx ID follows urine cx + Enterobacter( initial and repeated), blood cx + SCON 10/03 slow hydration nephro follows monitor renal parameters, worsening creat -up to 3.6, Vanco level-19 Mg stable after replacement avoid nephrotoxic, off diuretic renal US no hydro, normal bilateral echogenicity Echo with EF 70-75% and RVSP of21 ECHO with evidence of vegetation anterior mitral valve blood cx 10/03 + SCON started on Vanco SHADI plan for Saturday BP management with multiple regimen of anti HTN and optimize as needed anemia w/up noted, high ferritin continue ASA , statin DVT GI prophylaxis Bowel regimen case discussed and evaluated by supervising physician Subjective Allergies: Coded Allergies: No Known Allergies (Unverified , 12/11/16) Subjective afebrile, no leukocytosis creat up to 3.5 today denies abdominal/ flank pain no SOB no CP ECHO with evidence of vegetation anterior mitral valve blood cx 10/03 + SCON Objective Last 24 Hour Vital Signs Date Time Temp Pulse Resp B/P Pulse Ox O2 Delivery O2 Flow Rate FiO2 12/15/16 14:06 142/70 12/15/16 12:19 98.0 76 18 142/70 99 Room Air 12/15/16 12:16 74 150/72 12/15/16 08:59 150/72 12/15/16 08:58 74 150/72 12/15/16 08:42 98.1 74 18 150/72 98 12/15/16 07:20 75 20 Room Air 21 12/15/16 05:47 134/75 12/15/16 00:35 97.5 12/15/16 00:00 97.2 71 18 125/78 98 Room Air 12/14/16 22:20 139/76 12/14/16 20:00 97.5 65 19 139/76 100 Room Air 12/14/16 19:30 70 20 Room Air 21 12/14/16 18:08 69 129/68 12/14/16 16:00 98.1 69 20 129/68 96 Room Air Intake and Output 12/14/16 12/15/16 19:00 07:00 Intake Total 1380 ml 1285 ml Output Total 625 ml 350 ml Balance 755 ml 935 ml Intake Oral 480 ml 480 ml IV Total 900 ml 805 ml Output Urine Total 625 ml 350 ml Objective General Appearance: WD/WN, no acute distress HEENT: normocephalic, atraumatic, anicteric, mucous membranes moist Respiratory/Chest: lungs clear, no respiratory distress, no accessory muscle use Cardiovascular: normal peripheral pulses, normal rate, regular rhythm, no JVD Abdomen: normal bowel sounds, soft, non tender, non distended Genitourinary: normal external genitalia Extremities: no edema Neurologic/Psychiatric: alert, responsive Musculoskeletal: normal muscle bulk Microbiology Date/Time Source Procedure Growth Status 12/13/16 15:25 Blood Blood Culture - Preliminary NO GROWTH AFTER 24 HOURS Resulted 12/13/16 15:10 Blood Blood Culture - Preliminary NO GROWTH AFTER 24 HOURS Resulted Laboratory Tests 12/15/16 05:15: White Blood Count 4.8, Red Blood Count 3.96L, Hemoglobin 9.7L, Hematocrit 31.2L , Mean Corpuscular Volume 79L, Mean Corpuscular Hemoglobin 24.6L, Mean Corpuscular Hemoglobin Concent 31.2L, Red Cell Distribution Width 16.5H, Platelet Count 180, Mean Platelet Volume 8.2, Neutrophils (%) (Auto) 75.0, Lymphocytes (%) (Auto) 13.5L, Monocytes (%) (Auto) 7.7, Eosinophils (%) (Auto) 3.5H, Basophils (%) (Auto) 0.4, Sodium Level 141, Potassium Level 4.0, Chloride Level 104, Carbon Dioxide Level 19L, Anion Gap 18H, Blood Urea Nitrogen 34H, Creatinine 3.5H, Estimat Glomerular Filtration Rate , Glucose Level 88, Uric Acid 11.2H, Calcium Level 8.8, Phosphorus Level 4.2, Magnesium Level 1.9, Total Bilirubin 0.2, Aspartate Amino Transf (AST/SGOT) 12, Alanine Aminotransferase ( ALT/SGPT) 5, Alkaline Phosphatase 57, Pro-B-Type Natriuretic Peptide 530H, Total Protein 6.0L, Albumin 3.1L, Globulin 2.9, Albumin/Globulin Ratio 1.0 Current Medications Medications (Trade) Dose Ordered Sig/Letty Route PRN Reason Start Time Stop Time Status Last Admin Dose Admin Acetaminophen (Tylenol) 650 mg Q4H PRN ORAL T>100.5 12/11/16 18:00 01/10/17 17:59 Albuterol/ Ipratropium (DuoNeb 0.5-3(2.5)mg/3ml) 3 ml Q4H PRN HHN Shortness of Breath 12/11/16 18:00 12/16/16 17:59 Allopurinol (Zyloprim) 200 mg DAILY ORAL 12/14/16 14:30 01/13/17 14:29 12/15/16 08:58 Aspirin (ASA) 81 mg DAILY ORAL 12/13/16 09:00 01/12/17 08:59 12/15/16 08:59 Atorvastatin Calcium (Lipitor) 10 mg QHS ORAL 12/13/16 21:00 01/12/17 20:59 12/14/16 20:30 Cefepime HCl/ Dextrose (Maxipime/D5W) 55 ml @ 110 mls/hr Q24H IVPB 12/14/16 20:00 12/17/16 23:59 12/14/16 20:30 Citalopram Hydrobromide (celeXA) 40 mg DAILY ORAL 12/13/16 09:00 01/12/17 08:59 12/15/16 08:58 Clonidine HCl (Catapres) 0.1 mg Q4H PRN ORAL SBP > 160 12/13/16 15:00 01/12/17 14:59 Clopidogrel Bisulfate (Plavix) 75 mg DAILY ORAL 12/12/16 09:00 01/11/17 08:59 12/15/16 08:58 Dextrose (Dextrose 50%) STAT PRN IV Hypoglycemia 12/11/16 21:15 01/10/17 21:14 Docusate Sodium (Colace) 100 mg TID ORAL 12/14/16 09:00 01/13/17 08:59 12/15/16 12:16 Heparin Sodium (Porcine) (Heparin 5000 units/ml) 5,000 units EVERY 12 HOURS SUBQ 12/11/16 21:00 01/10/17 20:59 12/15/16 09:00 Hydralazine HCl 50 mg 50 mg Q8HR ORAL 12/15/16 14:00 01/14/17 13:59 12/15/16 14:06 Insulin Aspart (NovoLOG) BEFORE MEALS AND HS SUBQ 12/11/16 22:30 4/13/17 22:29 12/15/16 12:16 Isosorbide Mononitrate (Imdur) 60 mg DAILY ORAL 12/13/16 09:00 01/12/17 08:59 12/15/16 08:59 Labetalol HCl (Normodyne) 200 mg TID ORAL 12/12/16 20:00 01/11/17 19:59 12/15/16 12:16 Morphine Sulfate (Morphine Sulfate) 2 mg Q4H PRN IVP Moderate Pain (Pain Scale 4-6) 12/11/16 18:00 12/18/16 17:59 12/15/16 00:05 Nitroglycerin (Ntg) 0.4 mg Q5MIN X 3 DOSES PRN SL Prn Chest Pain 12/11/16 18:15 01/10/17 18:14 Non-Formulary Medication 1 ea 1 ea DAILY ORAL 12/13/16 09:00 01/12/17 08:59 UNV Ondansetron HCl (Zofran) 4 mg Q6H PRN IVP Nausea & Vomiting 12/11/16 18:00 01/10/17 17:59 Pamidronate Disodium/Sodium Chloride (Aredia/NS) 550 ml @ 137.5 mls/ hr ONCE ONCE IVPB 12/15/16 12:00 12/15/16 15:59 12/15/16 12:24 Pantoprazole 40 mg 40 mg BID ORAL 12/13/16 18:00 01/12/17 17:59 12/15/16 08:58 Polyethylene Glycol (Miralax) 17 gm DAILYPRN PRN ORAL Constipation 12/11/16 18:00 01/10/17 17:59 Sodium Chloride (Sodium Chloride 1000ml bag) 1,000 ml @ 75 mls/hr [id number] IVLG 12/13/16 15:00 01/12/17 14:59 12/15/16 05:47 Temazepam (Restoril) 15 mg HSPRN PRN ORAL Insomnia 12/11/16 21:00 12/18/16 20:59 Vancomycin HCl (Vanco rx to dose) 1 ea DAILY PRN MISC Per rx protocol 12/15/16 10:45 01/14/17 10:44 Sadia Rubin NP ([facility]anchte[facility]) Dec 15, 2016 14:29
[2016-12-15] MEDS ORDERED: Tubing IV Secondary IV ONE (16:10)
[2016-12-15] MEDS: Miralax 17gm pkt ORAL PRN (17:08)
[2016-12-15] MEDS: Cefepime 500mg in D5W 55ml IVPB SCH (20:10)
[2016-12-16] VITALS: BP_SYST 149; BP_SYST 155; BP_DIAS 74; BP_DIAS 77
[2016-12-16 04:00] VITALS: BP 160/87
[2016-12-16] MEDS: HydrALAZINE 25mg tab ORAL SCH ×3 (06:01→20:56)
[2016-12-16] MEDS: NovoLOG Insulin Flexpen SUBQ SCH ×4 (06:25→20:40)
[2016-12-16] MEDS: Morphine Sulfate 2mg/ml Inj IVP PRN ×3 (06:50→22:23)
[2016-12-16 07:21] LABS: EOSINOPHILS % (AUTO) 5.3 % (0.0-3.0); LYMPHOCYTES % (AUTO) 8.1 % (20.0-45.0); MEAN CORPUSCULAR HEMOGLOBIN 23.8 PG (27.0-31.0); MEAN CORPUSCULAR HGB CONC 30.2 G/DL (32.0-36.0); MEAN CORPUSCULAR VOLUME 79 FL (80-99); MEAN PLATELET VOLUME 7.1 FL (6.5-10.1); MONOCYTES % (AUTO) 11.2 % (1.0-10.0); NEUTROPHILS % (AUTO) 74.4 % (45.0-75.0); PLATELET COUNT 160 K/UL (150-450); RED BLOOD COUNT 3.89 M/UL (4.20-5.40); RED CELL DISTRIBUTION WIDTH 17.2 % (11.6-14.8)
[2016-12-16 07:55] LABS: ANION GAP 18 (5-15); CALCIUM 8.4 mg/dL (8.6-10.2); CARBON DIOXIDE 18 mEQ/L (20-30); CHLORIDE 109 mEQ/L (98-107); CREATININE 3.2 mg/dL (0.5-0.9); HEMOLYSIS 1; SODIUM 145 mEQ/L (135-145)
[2016-12-16 08:00] VITALS: BP 149/71
[2016-12-16 08:02] LABS: ALANINE AMINOTRANSFERASE 5 U/L (3-33); ALBUMIN/GLOBULIN RATIO 1.1 (1.0-2.7); ANION GAP 18 (5-15); ASPARTATE AMINO TRANSFERASE 11 U/L (5-40); CALCIUM 8.7 mg/dL (8.6-10.2); CARBON DIOXIDE 18 mEQ/L (20-30); CHLORIDE 109 mEQ/L (98-107); CREATININE 3.1 mg/dL (0.5-0.9); HEMOLYSIS 2; MAGNESIUM 1.7 mg/dL (1.7-2.5); POTASSIUM 3.9 mEQ/L (3.4-4.9); SODIUM 145 mEQ/L (135-145); TOTAL PROTEIN 5.8 g/dL (6.6-8.7); URIC ACID 10.7 mg/dL (3.0-7.5)
[2016-12-16] MEDS: Allopurinol 100mg Tab ORAL SCH (09:00)
[2016-12-16] MEDS: Citalopram 20mg Tab ORAL SCH (09:03)
[2016-12-16] MEDS: Imdur 30mg tab ORAL SCH (09:04)
[2016-12-16] MEDS: Labetalol 200mg tab ORAL SCH ×3 (09:04→17:42)
[2016-12-16] MEDS: Aspirin Baby 81mg ORAL SCH (09:04)
[2016-12-16] MEDS: Docusate 100mg tablet ORAL SCH ×3 (09:04→17:41)
[2016-12-16] MEDS: Heparin 5000 units/ml inj SUBQ SCH ×2 (09:11→20:56)
--- NOTE | 2016-12-16 10:36 | Infectious Diseases Prog Note ---
Assessment/Plan Assessment/Plan ASSESSMENT: 71-year-old female with: CONS bacteremia 10/03 with LALITO r/o SBE - repeat BCx NGTD, SHADI pending - TTE: anterior mitral valve vegitation. UTI - UCx E.aerogenes US: Negative for hydronephrosis. Left renal calcifications, may be parenchymal or calyceal. Bilateral renal cysts. Empty bladder with Velasco catheter. Negative influenza Afebrile without leukocytosis Diabetes History of CVA MRSA colonized NKDA Full Code PLAN: continue IV vancomycin d# 2, cefepime d# 6 / 7 SHADI 12/17 Monitor CBC, temperatures Monitor BMP Subjective Allergies: Coded Allergies: IODINE (Verified Allergy, Intermediate, Rash, 12/16/16) ALLOPURINOL (Verified Adverse Reaction, Intermediate, rash, 12/16/16) Subjective remains afebrile. comfortable repeat BCx NGTD SHADI tomorrow Objective Vital Signs Last 24 Hour Vital Signs Date Time Temp Pulse Resp B/P Pulse Ox O2 Delivery O2 Flow Rate FiO2 12/16/16 09:04 149/71 12/16/16 09:04 77 149/71 12/16/16 08:00 98.4 77 21 149/71 96 Room Air 12/16/16 07:20 97.7 12/16/16 06:01 142/79 12/16/16 04:00 97.7 78 18 160/87 99 Room Air 12/16/16 00:00 98.2 74 20 155/77 97 Room Air 12/15/16 23:48 134/76 12/15/16 21:59 98.2 72 20 143/73 95 Room Air 12/15/16 21:39 98.2 72 20 143/73 95 Nasal Cannula 12/15/16 20:31 72 18 Room Air 21 12/15/16 20:00 98.2 72 20 143/73 95 Room Air 12/15/16 17:06 74 130/66 12/15/16 16:07 97.9 74 20 130/66 99 Room Air 12/15/16 14:06 142/70 12/15/16 12:19 98.0 76 18 142/70 99 Room Air 12/15/16 12:16 74 150/72 Height (Feet): 5 Height (Inches): 2.00 Weight (Pounds): 145 General Appearance: no acute distress Respiratory/Chest: no respiratory distress Cardiovascular: normal rate, regular rhythm, systolic murmur Abdomen: normal bowel sounds, soft, non tender, non distended Microbiology Date/Time Source Procedure Growth Status 12/13/16 15:25 Blood Blood Culture - Preliminary NO GROWTH AFTER 48 HOURS Resulted 12/13/16 15:10 Blood Blood Culture - Preliminary NO GROWTH AFTER 48 HOURS Resulted Laboratory Tests Test 12/16/16 05:05 White Blood Count 4.0 K/UL (4.8-10.8) L Red Blood Count 3.89 M/UL (4.20-5.40) L Hemoglobin 9.2 G/DL (12.0-16.0) L Hematocrit 30.6 % (37.0-47.0) L Mean Corpuscular Volume 79 FL (80-99) L Mean Corpuscular Hemoglobin 23.8 PG (27.0-31.0) L Mean Corpuscular Hemoglobin Concent 30.2 G/DL (32.0-36.0) L Red Cell Distribution Width 17.2 % (11.6-14.8) H Platelet Count 160 K/UL (150-450) Mean Platelet Volume 7.1 FL (6.5-10.1) Neutrophils (%) (Auto) 74.4 % (45.0-75.0) Lymphocytes (%) (Auto) 8.1 % (20.0-45.0) L Monocytes (%) (Auto) 11.2 % (1.0-10.0) H Eosinophils (%) (Auto) 5.3 % (0.0-3.0) H Basophils (%) (Auto) 1.0 % (0.0-2.0) Sodium Level 145 mEQ/L (135-145) Potassium Level 4.0 mEQ/L (3.4-4.9) Chloride Level 109 mEQ/L (98-107) H Carbon Dioxide Level 18 mEQ/L (20-30) L Anion Gap 18 (5-15) H Blood Urea Nitrogen 32 mg/dL (7-23) H Creatinine 3.2 mg/dL (0.5-0.9) H Estimat Glomerular Filtration Rate mL/min (>60) Glucose Level 95 mg/dL (74-106) Uric Acid 10.7 mg/dL (3.0-7.5) H Calcium Level 8.4 mg/dL (8.6-10.2) L Phosphorus Level 4.0 mg/dL (2.5-4.8) Magnesium Level 1.7 mg/dL (1.7-2.5) Total Bilirubin 0.2 mg/dL (0.0-1.2) Aspartate Amino Transf (AST/SGOT) 11 U/L (5-40) Alanine Aminotransferase (ALT/SGPT) 5 U/L (3-33) Alkaline Phosphatase 53 U/L (35-104) Pro-B-Type Natriuretic Peptide 790 pg/mL (0-125) H Total Protein 5.8 g/dL (6.6-8.7) L Albumin 3.1 g/dL (3.5-5.2) L Globulin 2.7 g/dL Albumin/Globulin Ratio 1.1 (1.0-2.7) Current Medications Medications (Trade) Dose Ordered Sig/Letty Route PRN Reason Start Time Stop Time Status Last Admin Dose Admin Acetaminophen (Tylenol) 650 mg Q4H PRN ORAL T>100.5 12/11/16 18:00 01/10/17 17:59 Albuterol/ Ipratropium (DuoNeb 0.5-3(2.5)mg/3ml) 3 ml Q4H PRN HHN Shortness of Breath 12/11/16 18:00 12/16/16 17:59 Allopurinol (Zyloprim) 200 mg DAILY ORAL 12/14/16 14:30 01/13/17 14:29 12/15/16 08:58 Aspirin (ASA) 81 mg DAILY ORAL 12/13/16 09:00 01/12/17 08:59 12/16/16 09:04 Atorvastatin Calcium (Lipitor) 10 mg QHS ORAL 12/13/16 21:00 01/12/17 20:59 12/15/16 20:28 Cefepime HCl/ Dextrose (Maxipime/D5W) 55 ml @ 110 mls/hr Q24H IVPB 12/14/16 20:00 12/17/16 23:59 12/15/16 20:10 Citalopram Hydrobromide (celeXA) 40 mg DAILY ORAL 12/13/16 09:00 01/12/17 08:59 12/16/16 09:03 Clonidine HCl (Catapres) 0.1 mg Q4H PRN ORAL SBP > 160 12/13/16 15:00 01/12/17 14:59 Clopidogrel Bisulfate (Plavix) 75 mg DAILY ORAL 12/12/16 09:00 01/11/17 08:59 12/16/16 09:04 Dextrose (Dextrose 50%) STAT PRN IV Hypoglycemia 12/11/16 21:15 01/10/17 21:14 Docusate Sodium (Colace) 100 mg TID ORAL 12/14/16 09:00 01/13/17 08:59 12/16/16 09:04 Heparin Sodium (Porcine) (Heparin 5000 units/ml) 5,000 units EVERY 12 HOURS SUBQ 12/11/16 21:00 01/10/17 20:59 12/16/16 09:11 Hydralazine HCl (Apresoline) 50 mg Q8HR ORAL 12/15/16 14:00 01/14/17 13:59 12/16/16 06:01 Insulin Aspart (NovoLOG) BEFORE MEALS AND HS SUBQ 12/11/16 22:30 01/10/17 22:29 12/15/16 17:07 Isosorbide Mononitrate (Imdur) 60 mg DAILY ORAL 12/13/16 09:00 01/12/17 08:59 12/16/16 09:04 Labetalol HCl (Normodyne) 200 mg TID ORAL 12/12/16 20:00 01/11/17 19:59 12/16/16 09:04 Morphine Sulfate (Morphine Sulfate) 2 mg Q4H PRN IVP Moderate Pain (Pain Scale 4-6) 12/11/16 18:00 12/18/16 17:59 12/16/16 06:50 Nitroglycerin (Ntg) 0.4 mg Q5MIN X 3 DOSES PRN SL Prn Chest Pain 12/11/16 18:15 01/10/17 18:14 Non-Formulary Medication 1 ea 1 ea DAILY ORAL 12/13/16 09:00 01/12/17 08:59 UNV Ondansetron HCl (Zofran) 4 mg Q6H PRN IVP Nausea & Vomiting 12/11/16 18:00 01/10/17 17:59 Pantoprazole 40 mg 40 mg BID ORAL 12/13/16 18:00 01/12/17 17:59 12/16/16 09:05 Polyethylene Glycol (Miralax) 17 gm DAILYPRN PRN ORAL Constipation 12/11/16 18:00 01/10/17 17:59 12/15/16 17:08 Sodium Chloride (Sodium Chloride 1000ml bag) 1,000 ml @ 75 mls/hr [id number] IVLG 12/13/16 15:00 01/12/17 14:59 12/15/16 20:19 Temazepam (Restoril) 15 mg HSPRN PRN ORAL Insomnia 12/11/16 21:00 12/18/16 20:59 Vancomycin HCl (Vanco rx to dose) 1 ea DAILY PRN MISC Per rx protocol 12/15/16 10:45 01/14/17 10:44 EVAN HOGUE 19, 2017 10:36
[2016-12-16 12:00] VITALS: BP 150/75
--- NOTE | 2016-12-16 12:18 | General Progress Note ---
Assessment/Plan Status: stable Status Narrative Cr 3.2 unchanged Assessment/Plan status; Acute renal failure , PreRenal mainly ( being treated with diuretics...? CHF ? high Vanco ? ? Underlying Diabetic Hypertensive kidney disease HyperUrecemia UTI HTN DM High Cholestrol Microcytic Anemia Plan; Adjust BP meds- increase hydralazine start PO calcium and Vit D - Aredia for high Ca given yesterday in error IV Calcium Slow Hydrate- DC diuretics 2D echo- results noted anemia zee monitor Vanco level per orders Negative for hydronephrosis Left renal calcifications, may be parenchymal or calyceal Bilateral renal cysts Empty bladder with Velasco catheter. Subjective ROS Limited/Unobtainable: No Constitutional: Reports: malaise Allergies: Coded Allergies: IODINE (Verified Allergy, Intermediate, Rash, 12/16/16) ALLOPURINOL (Verified Adverse Reaction, Intermediate, rash, 12/16/16) Objective Last 24 Hour Vital Signs Date Time Temp Pulse Resp B/P Pulse Ox O2 Delivery O2 Flow Rate FiO2 12/16/16 09:04 149/71 12/16/16 09:04 77 149/71 12/16/16 08:00 98.4 77 21 149/71 96 Room Air 12/16/16 07:20 97.7 12/16/16 06:01 142/79 12/16/16 04:00 97.7 78 18 160/87 99 Room Air 12/16/16 00:00 98.2 74 20 155/77 97 Room Air 12/15/16 23:48 134/76 12/15/16 21:59 98.2 72 20 143/73 95 Room Air 12/15/16 21:39 98.2 72 20 143/73 95 Nasal Cannula 12/15/16 20:31 72 18 Room Air 21 12/15/16 20:00 98.2 72 20 143/73 95 Room Air 12/15/16 17:06 74 130/66 12/15/16 16:07 97.9 74 20 130/66 99 Room Air 12/15/16 14:06 142/70 12/15/16 12:19 98.0 76 18 142/70 99 Room Air 12/15/16 12:16 74 150/72 Intake and Output 12/15/16 12/16/16 19:00 07:00 Intake Total 1235.0 ml 540 ml Output Total 300 ml 1000 ml Balance 935.0 ml -460 ml Intake Oral 360 ml 540 ml IV Total 875.0 ml Output Urine Total 300 ml 1000 ml Laboratory Tests 12/16/16 05:05: White Blood Count 4.0L, Red Blood Count 3.89L, Hemoglobin 9.2L, Hematocrit 30.6L , Mean Corpuscular Volume 79L, Mean Corpuscular Hemoglobin 23.8L, Mean Corpuscular Hemoglobin Concent 30.2L, Red Cell Distribution Width 17.2H, Platelet Count 160, Mean Platelet Volume 7.1, Neutrophils (%) (Auto) 74.4, Lymphocytes (%) (Auto) 8.1L, Monocytes (%) (Auto) 11.2H, Eosinophils (%) (Auto) 5.3H, Basophils (%) (Auto) 1.0, Sodium Level 145, Potassium Level 4.0, Chloride Level 109H, Carbon Dioxide Level 18L, Anion Gap 18H, Blood Urea Nitrogen 32H, Creatinine 3.2H, Estimat Glomerular Filtration Rate , Glucose Level 95, Uric Acid 10.7H, Calcium Level 8.4L, Phosphorus Level 4.0, Magnesium Level 1.7, Total Bilirubin 0.2, Aspartate Amino Transf (AST/SGOT) 11, Alanine Aminotransferase (ALT/SGPT) 5, Alkaline Phosphatase 53, Pro-B-Type Natriuretic Peptide 790H, Total Protein 5.8L, Albumin 3.1L, Globulin 2.7, Albumin/Globulin Ratio 1.1 Height (Feet): 5 Height (Inches): 2.00 Weight (Pounds): 145 General Appearance: no apparent distress Objective other physical exam not changed ROD PATE Dec 16, 2016 12:18
[2016-12-16] MEDS ORDERED: Vitamin D 50,000 units cap ORAL SCH (13:00)
--- NOTE | 2016-12-16 13:09 | Cardiology Progress Note ---
Subjective Subjective [id number] Objective Last 24 Hour Vital Signs Date Time Temp Pulse Resp B/P Pulse Ox O2 Delivery O2 Flow Rate FiO2 12/16/16 09:04 149/71 12/16/16 09:04 77 149/71 12/16/16 08:00 98.4 77 21 149/71 96 Room Air 12/16/16 07:20 97.7 12/16/16 06:01 142/79 12/16/16 04:00 97.7 78 18 160/87 99 Room Air 12/16/16 00:00 98.2 74 20 155/77 97 Room Air 12/15/16 23:48 134/76 12/15/16 21:59 98.2 72 20 143/73 95 Room Air 12/15/16 21:39 98.2 72 20 143/73 95 Nasal Cannula 12/15/16 20:31 72 18 Room Air 21 12/15/16 20:00 98.2 72 20 143/73 95 Room Air 12/15/16 17:06 74 130/66 12/15/16 16:07 97.9 74 20 130/66 99 Room Air 12/15/16 14:06 142/70 Intake and Output 12/15/16 12/16/16 19:00 07:00 Intake Total 1235.0 ml 540 ml Output Total 300 ml 1000 ml Balance 935.0 ml -460 ml Intake Oral 360 ml 540 ml IV Total 875.0 ml Output Urine Total 300 ml 1000 ml Laboratory Tests Test 12/16/16 05:05 White Blood Count 4.0 K/UL (4.8-10.8) L Red Blood Count 3.89 M/UL (4.20-5.40) L Hemoglobin 9.2 G/DL (12.0-16.0) L Hematocrit 30.6 % (37.0-47.0) L Mean Corpuscular Volume 79 FL (80-99) L Mean Corpuscular Hemoglobin 23.8 PG (27.0-31.0) L Mean Corpuscular Hemoglobin Concent 30.2 G/DL (32.0-36.0) L Red Cell Distribution Width 17.2 % (11.6-14.8) H Platelet Count 160 K/UL (150-450) Mean Platelet Volume 7.1 FL (6.5-10.1) Neutrophils (%) (Auto) 74.4 % (45.0-75.0) Lymphocytes (%) (Auto) 8.1 % (20.0-45.0) L Monocytes (%) (Auto) 11.2 % (1.0-10.0) H Eosinophils (%) (Auto) 5.3 % (0.0-3.0) H Basophils (%) (Auto) 1.0 % (0.0-2.0) Sodium Level 145 mEQ/L (135-145) Potassium Level 4.0 mEQ/L (3.4-4.9) Chloride Level 109 mEQ/L (98-107) H Carbon Dioxide Level 18 mEQ/L (20-30) L Anion Gap 18 (5-15) H Blood Urea Nitrogen 32 mg/dL (7-23) H Creatinine 3.2 mg/dL (0.5-0.9) H Estimat Glomerular Filtration Rate mL/min (>60) Glucose Level 95 mg/dL (74-106) Uric Acid 10.7 mg/dL (3.0-7.5) H Calcium Level 8.4 mg/dL (8.6-10.2) L Phosphorus Level 4.0 mg/dL (2.5-4.8) Magnesium Level 1.7 mg/dL (1.7-2.5) Total Bilirubin 0.2 mg/dL (0.0-1.2) Aspartate Amino Transf (AST/SGOT) 11 U/L (5-40) Alanine Aminotransferase (ALT/SGPT) 5 U/L (3-33) Alkaline Phosphatase 53 U/L (35-104) Pro-B-Type Natriuretic Peptide 790 pg/mL (0-125) H Total Protein 5.8 g/dL (6.6-8.7) L Albumin 3.1 g/dL (3.5-5.2) L Globulin 2.7 g/dL Albumin/Globulin Ratio 1.1 (1.0-2.7) Microbiology Date/Time Source Procedure Growth Status 12/13/16 15:25 Blood Blood Culture - Preliminary NO GROWTH AFTER 48 HOURS Resulted 12/13/16 15:10 Blood Blood Culture - Preliminary NO GROWTH AFTER 48 HOURS Resulted BRAD WILLIS Dec 16, 2016 13:09
[2016-12-16] MEDS: Calcitriol 0.5mcg Cap ORAL SCH (13:20)
[2016-12-16] MEDS ORDERED: Calcium Gluconate 10% 2 GM in NS 110 ML IVPB ONE (14:00)
[2016-12-16 16:00] VITALS: BP 141/64
--- NOTE | 2016-12-16 16:39 | Pulmonology Progress Note ---
Assessment/Plan Assessment/Plan ASSESSMENT UTI acute renal failure on likely CRI bacteremia- SCON mitral anterior valve vegetation - per ECHO DM Hx of CVA HTN Anemia e/lyte imbalance PLAN OF CARE MS floor abx ID follows urine cx + Enterobacter( initial and repeated), blood cx + SCON 1/4 slow hydration nephro follows monitor renal parameters, worsening creat -up to 3.6, Vanco level-19 Mg stable after replacement avoid nephrotoxic, off diuretic renal US no hydro, normal bilateral echogenicity Echo with EF 70-75% and RVSP of21 ECHO with evidence of vegetation anterior mitral valve blood cx 10/03 + SCON, repeated blood cx preliminary negative on Vanco cardio eval appreciated plan SHADI , tentatively ordered for Saturday BP management with multiple regimen of anti HTN and optimize as needed anemia w/up noted, high ferritin continue ASA , statin DVT GI prophylaxis Bowel regimen case discussed and evaluated by supervising physician Subjective Allergies: Coded Allergies: IODINE (Verified Allergy, Intermediate, Rash, 12/16/16) ALLOPURINOL (Verified Adverse Reaction, Intermediate, rash, 12/16/16) Subjective afebrile, no leukocytosis creat up to 3.2 today denies abdominal/ flank pain no SOB no CP ECHO with evidence of vegetation anterior mitral valve blood cx 10/03 + SCON , repeated blood cx preliminary negative transitional care manager seen earlier Objective Last 24 Hour Vital Signs Date Time Temp Pulse Resp B/P Pulse Ox O2 Delivery O2 Flow Rate FiO2 12/16/16 13:19 150/75 12/16/16 13:19 74 150/75 12/16/16 12:00 96.8 74 19 150/75 99 Room Air 12/16/16 09:04 149/71 12/16/16 09:04 77 149/71 12/16/16 08:00 98.4 77 21 149/71 96 Room Air 12/16/16 07:20 97.7 12/16/16 06:01 142/79 12/16/16 04:00 97.7 78 18 160/87 99 Room Air 12/16/16 00:00 98.2 74 20 155/77 97 Room Air 12/15/16 23:48 134/76 12/15/16 21:59 98.2 72 20 143/73 95 Room Air 12/15/16 21:39 98.2 72 20 143/73 95 Nasal Cannula 12/15/16 20:31 72 18 Room Air 21 12/15/16 20:00 98.2 72 20 143/73 95 Room Air 12/15/16 17:06 74 130/66 Intake and Output 12/15/16 12/16/16 19:00 07:00 Intake Total 1235.0 ml 615 ml Output Total 300 ml 1000 ml Balance 935.0 ml -385 ml Intake Oral 360 ml 540 ml IV Total 875.0 ml 75 ml Output Urine Total 300 ml 1000 ml Objective General Appearance: WD/WN, no acute distress HEENT: normocephalic, atraumatic, anicteric, mucous membranes moist Respiratory/Chest: lungs clear, no respiratory distress, no accessory muscle use Cardiovascular: normal peripheral pulses, normal rate, regular rhythm, no JVD Abdomen: normal bowel sounds, soft, non tender, non distended Genitourinary: normal external genitalia Extremities: no edema Neurologic/Psychiatric: alert, responsive Musculoskeletal: normal muscle bulk Laboratory Tests 12/16/16 05:05: White Blood Count 4.0L, Red Blood Count 3.89L, Hemoglobin 9.2L, Hematocrit 30.6L , Mean Corpuscular Volume 79L, Mean Corpuscular Hemoglobin 23.8L, Mean Corpuscular Hemoglobin Concent 30.2L, Red Cell Distribution Width 17.2H, Platelet Count 160, Mean Platelet Volume 7.1, Neutrophils (%) (Auto) 74.4, Lymphocytes (%) (Auto) 8.1L, Monocytes (%) (Auto) 11.2H, Eosinophils (%) (Auto) 5.3H, Basophils (%) (Auto) 1.0, Sodium Level 145, Potassium Level 4.0, Chloride Level 109H, Carbon Dioxide Level 18L, Anion Gap 18H, Blood Urea Nitrogen 32H, Creatinine 3.2H, Estimat Glomerular Filtration Rate , Glucose Level 95, Uric Acid 10.7H, Calcium Level 8.4L, Phosphorus Level 4.0, Magnesium Level 1.7, Total Bilirubin 0.2, Aspartate Amino Transf (AST/SGOT) 11, Alanine Aminotransferase (ALT/SGPT) 5, Alkaline Phosphatase 53, Pro-B-Type Natriuretic Peptide 790H, Total Protein 5.8L, Albumin 3.1L, Globulin 2.7, Albumin/Globulin Ratio 1.1 Current Medications Medications (Trade) Dose Ordered Sig/Letty Route PRN Reason Start Time Stop Time Status Last Admin Dose Admin Acetaminophen (Tylenol) 650 mg Q4H PRN ORAL T>100.5 12/11/16 18:00 01/10/17 17:59 Albuterol/ Ipratropium (DuoNeb 0.5-3(2.5)mg/3ml) 3 ml Q4H PRN HHN Shortness of Breath 12/11/16 18:00 12/16/16 17:59 Aspirin (ASA) 81 mg DAILY ORAL 12/13/16 09:00 01/12/17 08:59 12/16/16 09:04 Atorvastatin Calcium (Lipitor) 10 mg QHS ORAL 12/13/16 21:00 01/12/17 20:59 12/15/16 20:28 Calcitriol (Rocaltrol) 0.5 mcg DAILY ORAL 12/16/16 13:00 01/15/17 12:59 12/16/16 13:20 Calcium Carbonate (Os-Angel) 1,250 mg THREE TIMES A DAY ORAL 12/16/16 13:00 01/15/17 12:59 12/16/16 13:20 Cefepime HCl/ Dextrose (Maxipime/D5W) 55 ml @ 110 mls/hr Q24H IVPB 12/14/16 20:00 12/17/16 23:59 12/15/16 20:10 Citalopram Hydrobromide (celeXA) 40 mg DAILY ORAL 12/13/16 09:00 01/12/17 08:59 12/16/16 09:03 Clonidine HCl (Catapres) 0.1 mg Q4H PRN ORAL SBP > 160 12/13/16 15:00 01/12/17 14:59 Clopidogrel Bisulfate (Plavix) 75 mg DAILY ORAL 12/12/16 09:00 01/11/17 08:59 12/16/16 09:04 Dextrose (Dextrose 50%) STAT PRN IV Hypoglycemia 12/11/16 21:15 01/10/17 21:14 Docusate Sodium (Colace) 100 mg TID ORAL 12/14/16 09:00 01/13/17 08:59 12/16/16 13:20 Ergocalciferol (Drisdol) 50,000 intlu QWEEK ORAL 12/16/16 13:00 01/15/17 12:59 12/16/16 14:42 Heparin Sodium (Porcine) (Heparin 5000 units/ml) 5,000 units EVERY 12 HOURS SUBQ 12/11/16 21:00 01/10/17 20:59 12/16/16 09:11 Hydralazine HCl (Apresoline) 50 mg Q8HR ORAL 12/15/16 14:00 01/14/17 13:59 12/16/16 13:19 Insulin Aspart (NovoLOG) BEFORE MEALS AND HS SUBQ 12/11/16 22:30 01/10/17 22:29 12/16/16 13:25 Isosorbide Mononitrate 60 mg 60 mg DAILY ORAL 12/13/16 09:00 01/12/17 08:59 12/16/16 09:04 Labetalol HCl (Normodyne) 200 mg TID ORAL 12/12/16 20:00 01/11/17 19:59 12/16/16 13:19 Morphine Sulfate (Morphine Sulfate) 2 mg Q4H PRN IVP Moderate Pain (Pain Scale 4-6) 12/11/16 18:00 12/18/16 17:59 12/16/16 06:50 Nitroglycerin (Ntg) 0.4 mg Q5MIN X 3 DOSES PRN SL Prn Chest Pain 12/11/16 18:15 01/10/17 18:14 Ondansetron HCl (Zofran) 4 mg Q6H PRN IVP Nausea & Vomiting 12/11/16 18:00 01/10/17 17:59 Pantoprazole 40 mg 40 mg BID ORAL 12/13/16 18:00 01/12/17 17:59 12/16/16 09:05 Polyethylene Glycol (Miralax) 17 gm DAILYPRN PRN ORAL Constipation 12/11/16 18:00 01/10/17 17:59 12/15/16 17:08 Sodium Chloride (Sodium Chloride 1000ml bag) 1,000 ml @ 75 mls/hr [id number] IVLG 12/13/16 15:00 01/12/17 14:59 12/16/16 09:40 Temazepam (Restoril) 15 mg HSPRN PRN ORAL Insomnia 12/11/16 21:00 12/18/16 20:59 Vancomycin HCl (Vanco rx to dose) 1 ea DAILY PRN MISC Per rx protocol 12/15/16 10:45 01/14/17 10:44 Scottie (Jeannie)Sadia NP Dec 16, 2016 16:39
[2016-12-16 20:00] VITALS: BP 149/74
[2016-12-16] MEDS: Cefepime 500mg in D5W 55ml IVPB SCH (20:55)
[2016-12-16] MEDS: Miralax 17gm pkt ORAL PRN (20:56)
--- NOTE | 2016-12-16 23:47 | Consultation ---
DATE OF CONSULTATION: CARDIOLOGY CONSULTATION CONSULTING PHYSICIAN: Swetha Brenner M.D. REFERRING PHYSICIAN: Jeyson Peralta M.D. REASON FOR EVALUATION: Possible endocarditis. HISTORY OF PRESENT ILLNESS: History of present illness is taken from the patient and reviewing the chart. This is a 71-year-old female. The patient underwent echocardiogram, which showed that she has thickening of mitral valve, rule out endocarditis. The patient herself presented because of weakness of the lower extremities. She was found to have urinary tract infection. Her history is significant for stroke about [id number]-half year ago and she has a history of diabetes, hypertension, arthritis, and obesity. 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 MEDICATIONS: Her medications were reviewed and reconciled. ALLERGIES: Allopurinol and iodine contrast. HABITS: She denies history of drinking, smoking, or drug abuse. SOCIAL HISTORY: She lives at home with a help. REVIEW OF SYSTEMS: She has weakness on her right side since stroke. She ambulates with a cane. She has divergent strabismus and the right eye has poor vision. She denies any fever, chills, headache, dyspnea, orthopnea, or chest pain. PHYSICAL EXAM: GENERAL: The patient appears resting comfortably. She is not in acute distress. VITAL SIGNS: Her blood pressure 160/80. Her heart rate is 70. Oxygen saturation is normal on room air. Temperature is normal. She was afebrile all the time since presentation to the hospital. HEENT: She has divergent strabismus. She has good pupil reaction on the left eye. Good corneal reflexes. There is a facial droop on the left side. NECK: Supple. There is a bilateral carotid bruit, more on the left. Good carotid upstroke without jugular venous distention. LUNGS: Clear to auscultation bilaterally. BREASTS: No significant masses. HEART: PMI is palpable in the sixth intercostal space in the anterior axial line. She has positive S4. She has systolic ejection murmur, moderate pitched and early peaking at the left sternal border. She has physiologic split of A2. ABDOMEN: Soft. No masses palpable. Good bowel sounds present. EXTREMITIES: Lower extremity, trace edema. Left leg, has a big scar under the patella. Weakness of the right side motor is 3/5 of the right arm. LABORATORY DATA: All noted. Normal white count. No blood cultures. No cultures whatsoever. Urinalysis is noted. Her chest x-ray is unremarkable. Her EKG shows left axis with Q-waves in V2 and echo showed thickened mitral valve leaflet. IMPRESSION AND RECOMMENDATIONS: There is clinically no evidence of acute endocarditis. The patient does not have any symptoms. She does not have any fever. She does not have embolic phenomenon and murmur is suggestive of aortic ejection murmur, not typical for endocarditis. I am going to order blood cultures, but otherwise the patient is stable and apparently she is going to have tomorrow. Dr. Cody is going to review the care tomorrow. Thank you very much for your consult. Swetha Brenner M.D. DR: ARIELLA JOB#: [id number] CC:
[2016-12-17] VITALS: BP 151/65
[2016-12-17 01:00] VITALS: BP 146/73
[2016-12-17] MEDS: HydrALAZINE 25mg tab ORAL SCH ×3 (05:47→21:28)
[2016-12-17] MEDS: NovoLOG Insulin Flexpen SUBQ SCH ×4 (06:01→21:30)
[2016-12-17 08:00] VITALS: BP 180/82
[2016-12-17 08:05] LABS: MEAN CORPUSCULAR HEMOGLOBIN 23.8 PG (27.0-31.0); MEAN CORPUSCULAR HGB CONC 30.1 G/DL (32.0-36.0); MEAN CORPUSCULAR VOLUME 79 FL (80-99); MEAN PLATELET VOLUME 6.5 FL (6.5-10.1); PLATELET COUNT 162 K/UL (150-450); RED BLOOD COUNT 4.16 M/UL (4.20-5.40); RED CELL DISTRIBUTION WIDTH 17.1 % (11.6-14.8); WHITE BLOOD COUNT 3.4 K/UL (4.8-10.8)
[2016-12-17 08:21] LABS: ALANINE AMINOTRANSFERASE 6 U/L (3-33); ALBUMIN/GLOBULIN RATIO 1.1 (1.0-2.7); ANION GAP 16 (5-15); ASPARTATE AMINO TRANSFERASE 14 U/L (5-40); CALCIUM 9.3 mg/dL (8.6-10.2); CARBON DIOXIDE 19 mEQ/L (20-30); CHLORIDE 107 mEQ/L (98-107); CREATININE 2.6 mg/dL (0.5-0.9); HEMOLYSIS 2; POTASSIUM 4.3 mEQ/L (3.4-4.9); SODIUM 142 mEQ/L (135-145); TOTAL PROTEIN 6.1 g/dL (6.6-8.7)
[2016-12-17 08:28] LABS: MAGNESIUM 1.6 mg/dL (1.7-2.5); PHOSPHORUS 3.2 mg/dL (2.5-4.8); URIC ACID 9.5 mg/dL (3.0-7.5)
[2016-12-17] MEDS: Aspirin Baby 81mg ORAL SCH (08:42)
[2016-12-17] MEDS: Imdur 30mg tab ORAL SCH (08:43)
[2016-12-17] MEDS: Docusate 100mg tablet ORAL SCH ×3 (08:43→18:34)
[2016-12-17] MEDS: Calcitriol 0.5mcg Cap ORAL SCH (08:43)
[2016-12-17] MEDS: Labetalol 200mg tab ORAL SCH ×3 (08:43→18:34)
[2016-12-17] MEDS: Heparin 5000 units/ml inj SUBQ SCH ×2 (08:44→21:00)
[2016-12-17] MEDS: Citalopram 20mg Tab ORAL SCH (08:49)
--- NOTE | 2016-12-17 10:17 | General Progress Note ---
Assessment/Plan Status: stable Status Narrative Cr lower Assessment/Plan status; Acute renal failure , PreRenal mainly ( being treated with diuretics...? CHF ? high Vanco ? ? Underlying Diabetic Hypertensive kidney disease HyperUrecemia UTI HTN DM High Cholestrol Microcytic Anemia Plan; Adjust BP meds- increase hydralazine start PO calcium and Vit D - Slow Hydrate- DC diuretics 2D echo- results noted anemia zee monitor Vanco level per orders Negative for hydronephrosis Left renal calcifications, may be parenchymal or calyceal Bilateral renal cysts Empty bladder with Velasco catheter. Subjective ROS Limited/Unobtainable: No Allergies: Coded Allergies: IODINE (Verified Allergy, Intermediate, Rash, 12/16/16) ALLOPURINOL (Verified Adverse Reaction, Intermediate, rash, 12/16/16) Objective Last 24 Hour Vital Signs Date Time Temp Pulse Resp B/P Pulse Ox O2 Delivery O2 Flow Rate FiO2 12/17/16 08:43 153/83 12/17/16 08:43 75 153/83 12/17/16 08:00 97.3 73 18 180/82 100 Room Air 12/17/16 05:47 146/73 12/17/16 01:00 97.9 72 18 146/73 95 Room Air 12/17/16 00:00 98.2 74 18 151/65 95 Room Air 12/16/16 22:53 98.2 12/16/16 20:56 149/74 12/16/16 20:00 98.2 72 18 149/74 100 Room Air 12/16/16 17:42 74 150/75 12/16/16 16:00 97.5 72 20 141/64 98 Room Air 12/16/16 13:19 150/75 12/16/16 13:19 74 150/75 12/16/16 12:00 96.8 74 19 150/75 99 Room Air Intake and Output 12/16/16 12/17/16 19:00 07:00 Intake Total 1260 ml 1005 ml Output Total 600 ml 700 ml Balance 660 ml 305 ml Intake Oral 360 ml 160 ml IV Total 900 ml 845 ml Output Urine Total 600 ml 700 ml Laboratory Tests 12/17/16 07:35: White Blood Count 3.4L, Red Blood Count 4.16L, Hemoglobin 9.9L, Hematocrit 32.9L , Mean Corpuscular Volume 79L, Mean Corpuscular Hemoglobin 23.8L, Mean Corpuscular Hemoglobin Concent 30.1L, Red Cell Distribution Width 17.1H, Platelet Count 162, Mean Platelet Volume 6.5, Neutrophils (%) (Auto) , Lymphocytes (%) (Auto) , Monocytes (%) (Auto) , Eosinophils (%) (Auto) , Basophils (%) (Auto) , Neutrophils % (Manual) [Pending], Lymphocytes % (Manual) [Pending], Platelet Estimate [Pending], Platelet Morphology [Pending], Sodium Level 142, Potassium Level 4.3, Chloride Level 107, Carbon Dioxide Level 19L, Anion Gap 16H, Blood Urea Nitrogen 28H, Creatinine 2.6H, Estimat Glomerular Filtration Rate , Glucose Level 97, Uric Acid 9.5H, Calcium Level 9.3, Phosphorus Level 3.2, Magnesium Level 1.6L, Total Bilirubin 0.2, Gamma Glutamyl Transpeptidase 15, Aspartate Amino Transf (AST/SGOT) 14, Alanine Aminotransferase (ALT/SGPT) 6, Alkaline Phosphatase 54, Total Protein 6.1L, Albumin 3.2L, Globulin 2.9, Albumin/Globulin Ratio 1.1, Random Vancomycin Level 12.6 Height (Feet): 5 Height (Inches): 2.00 Weight (Pounds): 145 General Appearance: no apparent distress Objective other physical exam not changed ROD PATE Dec 17, 2016 10:17
--- NOTE | 2016-12-17 10:34 | Infectious Diseases Prog Note ---
Assessment/Plan Assessment/Plan ASSESSMENT: 71-year-old female with: CONS bacteremia 10/03 with LALITO r/o SBE - repeat BCx NGTD, SHADI pending - TTE: anterior mitral valve vegitation. UTI - UCx E.aerogenes US: Negative for hydronephrosis. Left renal calcifications, may be parenchymal or calyceal. Bilateral renal cysts. Empty bladder with Velasco catheter. Negative influenza Afebrile without leukocytosis Diabetes History of CVA MRSA colonized NKDA Full Code PLAN: continue IV vancomycin d# 3, cefepime d# 7 / 7 SHADI Monitor CBC, temperatures Monitor BMP Subjective Allergies: Coded Allergies: IODINE (Verified Allergy, Intermediate, Rash, 12/16/16) ALLOPURINOL (Verified Adverse Reaction, Intermediate, rash, 12/16/16) Subjective remains afebrile. comfortable repeat BCx NGTD possible SHADI today Objective Vital Signs Last 24 Hour Vital Signs Date Time Temp Pulse Resp B/P Pulse Ox O2 Delivery O2 Flow Rate FiO2 12/17/16 08:43 153/83 12/17/16 08:43 75 153/83 12/17/16 08:00 97.3 73 18 180/82 100 Room Air 12/17/16 05:47 146/73 12/17/16 01:00 97.9 72 18 146/73 95 Room Air 12/17/16 00:00 98.2 74 18 151/65 95 Room Air 12/16/16 22:53 98.2 12/16/16 20:56 149/74 12/16/16 20:00 98.2 72 18 149/74 100 Room Air 12/16/16 17:42 74 150/75 12/16/16 16:00 97.5 72 20 141/64 98 Room Air 12/16/16 13:19 150/75 12/16/16 13:19 74 150/75 12/16/16 12:00 96.8 74 19 150/75 99 Room Air Height (Feet): 5 Height (Inches): 2.00 Weight (Pounds): 145 General Appearance: no acute distress Respiratory/Chest: no respiratory distress Cardiovascular: normal rate, regular rhythm Abdomen: normal bowel sounds, soft, non tender, non distended Microbiology Date/Time Source Procedure Growth Status 12/15/16 11:20 Blood Blood Culture - Preliminary NO GROWTH AFTER 24 HOURS Resulted 12/15/16 11:15 Blood Blood Culture - Preliminary NO GROWTH AFTER 24 HOURS Resulted Laboratory Tests Test 12/17/16 07:35 White Blood Count 3.4 K/UL (4.8-10.8) L Red Blood Count 4.16 M/UL (4.20-5.40) L Hemoglobin 9.9 G/DL (12.0-16.0) L Hematocrit 32.9 % (37.0-47.0) L Mean Corpuscular Volume 79 FL (80-99) L Mean Corpuscular Hemoglobin 23.8 PG (27.0-31.0) L Mean Corpuscular Hemoglobin Concent 30.1 G/DL (32.0-36.0) L Red Cell Distribution Width 17.1 % (11.6-14.8) H Platelet Count 162 K/UL (150-450) Mean Platelet Volume 6.5 FL (6.5-10.1) Neutrophils (%) (Auto) % (45.0-75.0) Lymphocytes (%) (Auto) % (20.0-45.0) Monocytes (%) (Auto) % (1.0-10.0) Eosinophils (%) (Auto) % (0.0-3.0) Basophils (%) (Auto) % (0.0-2.0) Neutrophils % (Manual) Pending Lymphocytes % (Manual) Pending Platelet Estimate Pending Platelet Morphology Pending Sodium Level 142 mEQ/L (135-145) Potassium Level 4.3 mEQ/L (3.4-4.9) Chloride Level 107 mEQ/L (98-107) Carbon Dioxide Level 19 mEQ/L (20-30) L Anion Gap 16 (5-15) H Blood Urea Nitrogen 28 mg/dL (7-23) H Creatinine 2.6 mg/dL (0.5-0.9) H Estimat Glomerular Filtration Rate mL/min (>60) Glucose Level 97 mg/dL (74-106) Uric Acid 9.5 mg/dL (3.0-7.5) H Calcium Level 9.3 mg/dL (8.6-10.2) Phosphorus Level 3.2 mg/dL (2.5-4.8) Magnesium Level 1.6 mg/dL (1.7-2.5) L Total Bilirubin 0.2 mg/dL (0.0-1.2) Gamma Glutamyl Transpeptidase 15 U/L (5-36) Aspartate Amino Transf (AST/SGOT) 14 U/L (5-40) Alanine Aminotransferase (ALT/SGPT) 6 U/L (3-33) Alkaline Phosphatase 54 U/L (35-104) Total Protein 6.1 g/dL (6.6-8.7) L Albumin 3.2 g/dL (3.5-5.2) L Globulin 2.9 g/dL Albumin/Globulin Ratio 1.1 (1.0-2.7) Random Vancomycin Level 12.6 ug/mL Current Medications Medications (Trade) Dose Ordered Sig/Letty Route PRN Reason Start Time Stop Time Status Last Admin Dose Admin Acetaminophen (Tylenol) 650 mg Q4H PRN ORAL T>100.5 12/11/16 18:00 01/10/17 17:59 Aspirin (ASA) 81 mg DAILY ORAL 12/13/16 09:00 01/12/17 08:59 12/17/16 08:42 Atorvastatin Calcium (Lipitor) 10 mg QHS ORAL 12/13/16 21:00 01/12/17 20:59 12/16/16 20:55 Calcitriol 0.5 mcg 0.5 mcg DAILY ORAL 12/16/16 13:00 01/15/17 12:59 12/17/16 08:43 Calcium Carbonate (Os-Angel) 1,250 mg THREE TIMES A DAY ORAL 12/16/16 13:00 01/15/17 12:59 12/17/16 08:42 Cefepime HCl/ Dextrose (Maxipime/D5W) 55 ml @ 110 mls/hr Q24H IVPB 12/14/16 20:00 12/17/16 23:59 12/16/16 20:55 Citalopram Hydrobromide (celeXA) 40 mg DAILY ORAL 12/13/16 09:00 01/12/17 08:59 12/17/16 08:49 Clonidine HCl (Catapres) 0.1 mg Q4H PRN ORAL SBP > 160 12/13/16 15:00 01/12/17 14:59 Clopidogrel Bisulfate (Plavix) 75 mg DAILY ORAL 12/12/16 09:00 01/11/17 08:59 12/17/16 08:43 Dextrose (Dextrose 50%) STAT PRN IV Hypoglycemia 12/11/16 21:15 01/10/17 21:14 Docusate Sodium (Colace) 100 mg TID ORAL 12/14/16 09:00 01/13/17 08:59 12/17/16 08:43 Ergocalciferol (Drisdol) 50,000 intlu QWEEK ORAL 12/16/16 13:00 01/15/17 12:59 12/16/16 14:42 Heparin Sodium (Porcine) (Heparin 5000 units/ml) 5,000 units EVERY 12 HOURS SUBQ 12/11/16 21:00 01/10/17 20:59 12/17/16 08:44 Hydralazine HCl (Apresoline) 50 mg Q8HR ORAL 12/15/16 14:00 01/14/17 13:59 12/17/16 05:47 Insulin Aspart (NovoLOG) BEFORE MEALS AND HS SUBQ 12/11/16 22:30 01/10/17 22:29 12/16/16 13:25 Isosorbide Mononitrate 60 mg 60 mg DAILY ORAL 12/13/16 09:00 01/12/17 08:59 12/17/16 08:43 Labetalol HCl (Normodyne) 200 mg TID ORAL 12/12/16 20:00 01/11/17 19:59 12/17/16 08:43 Morphine Sulfate (Morphine Sulfate) 2 mg Q4H PRN IVP Moderate Pain (Pain Scale 4-6) 12/11/16 18:00 12/18/16 17:59 12/16/16 22:23 Nitroglycerin (Ntg) 0.4 mg Q5MIN X 3 DOSES PRN SL Prn Chest Pain 12/11/16 18:15 01/10/17 18:14 Ondansetron HCl (Zofran) 4 mg Q6H PRN IVP Nausea & Vomiting 12/11/16 18:00 01/10/17 17:59 Pantoprazole 40 mg 40 mg BID ORAL 12/13/16 18:00 01/12/17 17:59 12/17/16 08:43 Polyethylene Glycol (Miralax) 17 gm DAILYPRN PRN ORAL Constipation 12/11/16 18:00 01/10/17 17:59 12/16/16 20:56 Sodium Chloride (Sodium Chloride 1000ml bag) 1,000 ml @ 75 mls/hr [id number] IVLG 12/13/16 15:00 01/12/17 14:59 12/16/16 22:23 Temazepam (Restoril) 15 mg HSPRN PRN ORAL Insomnia 12/11/16 21:00 12/18/16 20:59 Vancomycin HCl (Vanco rx to dose) 1 ea DAILY PRN MISC Per rx protocol 12/15/16 10:45 01/14/17 10:44 Vancomycin HCl/ Dextrose (Vancomycin/D5W) 275 ml @ 183.708 mls/hr ONCE ONCE IVPB 12/17/16 11:00 12/17/16 12:29 EVAN HOGUE 20, 2017 10:34
[2016-12-17 10:44] LABS: ANISOCYTOSIS 1+; BAND NEUTROPHILS % (MANUAL) 0 % (0-8); BASOPHILS % (MANUAL) 0 % (0-2); EOSINOPHILS % (MANUAL) 8 % (0-3); HYPOCHROMASIA 1+; LYMPHOCYTES % (MANUAL) 10 % (20-45); MICROCYTES 1+; NEUTROPHILS % (MANUAL) 76 % (45-75); PLATELET ESTIMATE ADEQUATE; PLATELET MORPHOLOGY NORMAL; TOTAL CELLS COUNTED 100
[2016-12-17] MEDS ORDERED: Vancomycin 750mg/D5W 275ml IVPB ONE ×4 (11:00→18:00)
[2016-12-17 12:31] VITALS: BP 140/69
[2016-12-17 16:00] VITALS: BP 135/69
[2016-12-17] MEDS: Morphine Sulfate 2mg/ml Inj IVP PRN (17:13)
[2016-12-17 20:00] VITALS: BP 147/79
--- NOTE | 2016-12-17 20:08 | Cardiology Progress Note ---
Assessment/Plan Assessment/Plan Acute renal failure , bacterremia 10/03 blood cx UTI HTN DM id rec MAGDALENA will review echo ris of magdalena and alternatives d/w pt she is not sure if she want o ahve th rpocedure doen risk on injury to food pine and teeth discussed with pt she will decide if she want to ave done Subjective Cardiovascular: Denies: chest pain, lightheadedness, palpitations Respiratory: Denies: shortness of breath Gastrointestinal/Abdominal: Reports: other - no dysphagia , Denies: abdominal pain Genitourinary: Denies: burning Objective Last 24 Hour Vital Signs Date Time Temp Pulse Resp B/P Pulse Ox O2 Delivery O2 Flow Rate FiO2 12/17/16 18:34 70 135/69 12/17/16 17:43 97.9 12/17/16 16:00 97.9 70 20 135/69 92 Room Air 12/17/16 13:37 140/69 12/17/16 13:37 71 140/69 12/17/16 12:31 97.6 71 18 140/69 100 Room Air 12/17/16 08:43 153/83 12/17/16 08:43 75 153/83 12/17/16 08:00 97.3 73 18 180/82 100 Room Air 12/17/16 05:47 146/73 12/17/16 01:00 97.9 72 18 146/73 95 Room Air 12/17/16 00:00 98.2 74 18 151/65 95 Room Air 12/16/16 20:56 149/74 General Appearance: alert Neck: no JVD, other - poor dentition Cardiovascular: normal rate, regular rhythm Respiratory/Chest: lungs clear, normal breath sounds Abdomen: non tender, soft Extremities: no swelling Intake and Output 12/16/16 12/17/16 19:00 07:00 Intake Total 1260 ml 1005 ml Output Total 600 ml 700 ml Balance 660 ml 305 ml Intake Oral 360 ml 160 ml IV Total 900 ml 845 ml Output Urine Total 600 ml 700 ml Laboratory Tests Test 12/17/16 07:35 White Blood Count 3.4 K/UL (4.8-10.8) L Red Blood Count 4.16 M/UL (4.20-5.40) L Hemoglobin 9.9 G/DL (12.0-16.0) L Hematocrit 32.9 % (37.0-47.0) L Mean Corpuscular Volume 79 FL (80-99) L Mean Corpuscular Hemoglobin 23.8 PG (27.0-31.0) L Mean Corpuscular Hemoglobin Concent 30.1 G/DL (32.0-36.0) L Red Cell Distribution Width 17.1 % (11.6-14.8) H Platelet Count 162 K/UL (150-450) Mean Platelet Volume 6.5 FL (6.5-10.1) Neutrophils (%) (Auto) % (45.0-75.0) Lymphocytes (%) (Auto) % (20.0-45.0) Monocytes (%) (Auto) % (1.0-10.0) Eosinophils (%) (Auto) % (0.0-3.0) Basophils (%) (Auto) % (0.0-2.0) Differential Total Cells Counted 100 Neutrophils % (Manual) 76 % (45-75) H Lymphocytes % (Manual) 10 % (20-45) L Monocytes % (Manual) 6 % (1-10) Eosinophils % (Manual) 8 % (0-3) H Basophils % (Manual) 0 % (0-2) Band Neutrophils 0 % (0-8) Platelet Estimate Adequate Platelet Morphology Normal Hypochromasia 1+ Anisocytosis 1+ Microcytosis 1+ Sodium Level 142 mEQ/L (135-145) Potassium Level 4.3 mEQ/L (3.4-4.9) Chloride Level 107 mEQ/L (98-107) Carbon Dioxide Level 19 mEQ/L (20-30) L Anion Gap 16 (5-15) H Blood Urea Nitrogen 28 mg/dL (7-23) H Creatinine 2.6 mg/dL (0.5-0.9) H Estimat Glomerular Filtration Rate mL/min (>60) Glucose Level 97 mg/dL (74-106) Uric Acid 9.5 mg/dL (3.0-7.5) H Calcium Level 9.3 mg/dL (8.6-10.2) Phosphorus Level 3.2 mg/dL (2.5-4.8) Magnesium Level 1.6 mg/dL (1.7-2.5) L Total Bilirubin 0.2 mg/dL (0.0-1.2) Gamma Glutamyl Transpeptidase 15 U/L (5-36) Aspartate Amino Transf (AST/SGOT) 14 U/L (5-40) Alanine Aminotransferase (ALT/SGPT) 6 U/L (3-33) Alkaline Phosphatase 54 U/L (35-104) Total Protein 6.1 g/dL (6.6-8.7) L Albumin 3.2 g/dL (3.5-5.2) L Globulin 2.9 g/dL Albumin/Globulin Ratio 1.1 (1.0-2.7) Random Vancomycin Level 12.6 ug/mL Microbiology Date/Time Source Procedure Growth Status 12/15/16 11:20 Blood Blood Culture - Preliminary NO GROWTH AFTER 24 HOURS Resulted 12/15/16 11:15 Blood Blood Culture - Preliminary NO GROWTH AFTER 24 HOURS Resulted ZACHARIAH MICHAUD Dec 17, 2016 20:08
[2016-12-17] MEDS: Cefepime 500mg in D5W 55ml IVPB SCH (21:28)
--- NOTE | 2016-12-17 23:27 | Pulmonology Progress Note ---
Assessment/Plan Problems: (1) Sepsis (2) ATN (acute tubular necrosis) (3) Weakness (4) UTI (urinary tract infection) (5) Episode of generalized weakness (6) Bacteremia Assessment/Plan improving check wbc SHADI for vegetation on echo f/u electrolytes abx as per ID Subjective ROS Limited/Unobtainable: No Constitutional: Reports: no symptoms HEENT: Repors: no symptoms Respiratory: Reports: no symptoms Cardiovascular: Reports: no symptoms Gastrointestinal/Abdominal: Reports: no symptoms Allergies: Coded Allergies: IODINE (Verified Allergy, Intermediate, Rash, 12/16/16) ALLOPURINOL (Verified Adverse Reaction, Intermediate, rash, 12/16/16) Objective Last 24 Hour Vital Signs Date Time Temp Pulse Resp B/P Pulse Ox O2 Delivery O2 Flow Rate FiO2 12/17/16 21:28 147/79 12/17/16 20:00 98.2 69 20 147/79 95 Room Air 12/17/16 18:34 70 135/69 12/17/16 17:43 97.9 12/17/16 16:00 97.9 70 20 135/69 92 Room Air 12/17/16 13:37 140/69 12/17/16 13:37 71 140/69 12/17/16 12:31 97.6 71 18 140/69 100 Room Air 12/17/16 08:43 153/83 12/17/16 08:43 75 153/83 12/17/16 08:00 97.3 73 18 180/82 100 Room Air 12/17/16 05:47 146/73 12/17/16 01:00 97.9 72 18 146/73 95 Room Air 12/17/16 00:00 98.2 74 18 151/65 95 Room Air Intake and Output 12/16/16 12/17/16 19:00 07:00 Intake Total 1260 ml 1005 ml Output Total 600 ml 700 ml Balance 660 ml 305 ml Intake Oral 360 ml 160 ml IV Total 900 ml 845 ml Output Urine Total 600 ml 700 ml Objective General Appearance: WD/WN HEENT: normocephalic, atraumatic Respiratory/Chest: chest wall non-tender, lungs clear Breasts: no masses Cardiovascular: normal peripheral pulses, normal rate, regular rhythm Abdomen: normal bowel sounds, soft, non tender, no organomegaly, non distended Genitourinary: normal external genitalia Skin: no rash, no lesions Neurologic/Psychiatric: open hearth helper II-XII grossly normal Lymphatic: no neck adenopathy General Appearance: WD/WN Microbiology Date/Time Source Procedure Growth Status 12/15/16 11:20 Blood Blood Culture - Preliminary NO GROWTH AFTER 24 HOURS Resulted 12/15/16 11:15 Blood Blood Culture - Preliminary NO GROWTH AFTER 24 HOURS Resulted Laboratory Tests 12/17/16 07:35: White Blood Count 3.4L, Red Blood Count 4.16L, Hemoglobin 9.9L, Hematocrit 32.9L , Mean Corpuscular Volume 79L, Mean Corpuscular Hemoglobin 23.8L, Mean Corpuscular Hemoglobin Concent 30.1L, Red Cell Distribution Width 17.1H, Platelet Count 162, Mean Platelet Volume 6.5, Neutrophils (%) (Auto) , Lymphocytes (%) (Auto) , Monocytes (%) (Auto) , Eosinophils (%) (Auto) , Basophils (%) (Auto) , Differential Total Cells Counted 100, Neutrophils % ( Manual) 76H, Lymphocytes % (Manual) 10L, Monocytes % (Manual) 6, Eosinophils % ( Manual) 8H, Basophils % (Manual) 0, Band Neutrophils 0, Platelet Estimate Adequate, Platelet Morphology Normal, Hypochromasia 1+, Anisocytosis 1+, Microcytosis 1+, Sodium Level 142, Potassium Level 4.3, Chloride Level 107, Carbon Dioxide Level 19L, Anion Gap 16H, Blood Urea Nitrogen 28H, Creatinine 2.6H, Estimat Glomerular Filtration Rate , Glucose Level 97, Uric Acid 9.5H, Calcium Level 9.3, Phosphorus Level 3.2, Magnesium Level 1.6L, Total Bilirubin 0.2, Gamma Glutamyl Transpeptidase 15, Aspartate Amino Transf (AST/SGOT) 14, Alanine Aminotransferase (ALT/SGPT) 6, Alkaline Phosphatase 54, Total Protein 6.1L, Albumin 3.2L, Globulin 2.9, Albumin/Globulin Ratio 1.1, Random Vancomycin Level 12.6 Current Medications Medications (Trade) Dose Ordered Sig/Letty Route PRN Reason Start Time Stop Time Status Last Admin Dose Admin Acetaminophen (Tylenol) 650 mg Q4H PRN ORAL T>100.5 12/11/16 18:00 01/10/17 17:59 Aspirin (ASA) 81 mg DAILY ORAL 12/13/16 09:00 01/12/17 08:59 12/17/16 08:42 Atorvastatin Calcium (Lipitor) 10 mg QHS ORAL 12/13/16 21:00 01/12/17 20:59 12/17/16 21:28 Calcitriol (Rocaltrol) 0.5 mcg DAILY ORAL 12/16/16 13:00 01/15/17 12:59 12/17/16 08:43 Calcium Carbonate (Os-Angel) 1,250 mg THREE TIMES A DAY ORAL 12/16/16 13:00 01/15/17 12:59 12/17/16 18:34 Cefepime HCl/ Dextrose (Maxipime/D5W) 55 ml @ 110 mls/hr Q24H IVPB 12/14/16 20:00 12/17/16 23:59 12/17/16 21:28 Citalopram Hydrobromide (celeXA) 40 mg DAILY ORAL 12/13/16 09:00 01/12/17 08:59 12/17/16 08:49 Clonidine HCl (Catapres) 0.1 mg Q4H PRN ORAL SBP > 160 12/13/16 15:00 01/12/17 14:59 Clopidogrel Bisulfate (Plavix) 75 mg DAILY ORAL 12/12/16 09:00 01/11/17 08:59 12/17/16 08:43 Dextrose (Dextrose 50%) STAT PRN IV Hypoglycemia 12/11/16 21:15 01/10/17 21:14 Docusate Sodium (Colace) 100 mg TID ORAL 12/14/16 09:00 01/13/17 08:59 12/17/16 18:34 Ergocalciferol (Drisdol) 50,000 intlu QWEEK ORAL 12/16/16 13:00 01/15/17 12:59 12/16/16 14:42 Heparin Sodium (Porcine) (Heparin 5000 units/ml) 5,000 units EVERY 12 HOURS SUBQ 12/11/16 21:00 01/10/17 20:59 12/17/16 08:44 Hydralazine HCl (Apresoline) 50 mg Q8HR ORAL 12/15/16 14:00 01/14/17 13:59 12/17/16 21:28 Insulin Aspart (NovoLOG) BEFORE MEALS AND HS SUBQ 12/11/16 22:30 01/10/17 22:29 12/17/16 21:30 Isosorbide Mononitrate 60 mg 60 mg DAILY ORAL 12/13/16 09:00 01/12/17 08:59 12/17/16 08:43 Labetalol HCl (Normodyne) 200 mg TID ORAL 12/12/16 20:00 01/11/17 19:59 12/17/16 18:34 Morphine Sulfate (Morphine Sulfate) 2 mg Q4H PRN IVP Moderate Pain (Pain Scale 4-6) 12/11/16 18:00 12/18/16 17:59 12/17/16 17:13 Nitroglycerin (Ntg) 0.4 mg Q5MIN X 3 DOSES PRN SL Prn Chest Pain 12/11/16 18:15 01/10/17 18:14 Ondansetron HCl (Zofran) 4 mg Q6H PRN IVP Nausea & Vomiting 12/11/16 18:00 01/10/17 17:59 Pantoprazole 40 mg 40 mg BID ORAL 12/13/16 18:00 01/12/17 17:59 12/17/16 18:34 Polyethylene Glycol (Miralax) 17 gm DAILYPRN PRN ORAL Constipation 12/11/16 18:00 01/10/17 17:59 12/16/16 20:56 Sodium Chloride (Sodium Chloride 1000ml bag) 1,000 ml @ 75 mls/hr [id number] IVLG 12/13/16 15:00 01/12/17 14:59 12/17/16 12:31 Temazepam (Restoril) 15 mg HSPRN PRN ORAL Insomnia 12/11/16 21:00 12/18/16 20:59 Vancomycin HCl (Vanco rx to dose) 1 ea DAILY PRN MISC Per rx protocol 12/15/16 10:45 01/14/17 10:44 CHARLOTTE MARTINES Dec 17, 2016 23:27
[2016-12-18] VITALS (14 sets, daily range): BP systolic 122–211; BP diastolic 56–102
[2016-12-18] MEDS: HydrALAZINE 25mg tab ORAL SCH ×3 (05:30→21:28)
[2016-12-18] MEDS: NovoLOG Insulin Flexpen SUBQ SCH ×4 (06:17→21:00)
[2016-12-18 07:09] LABS: EOSINOPHILS % (AUTO) 6.1 % (0.0-3.0); LYMPHOCYTES % (AUTO) 14.2 % (20.0-45.0); MEAN CORPUSCULAR HEMOGLOBIN 23.8 PG (27.0-31.0); MEAN CORPUSCULAR VOLUME 79 FL (80-99); MEAN PLATELET VOLUME 7.4 FL (6.5-10.1); MONOCYTES % (AUTO) 13.8 % (1.0-10.0); PLATELET COUNT 148 K/UL (150-450); RED BLOOD COUNT 3.99 M/UL (4.20-5.40); RED CELL DISTRIBUTION WIDTH 17.5 % (11.6-14.8); WHITE BLOOD COUNT 4.1 K/UL (4.8-10.8)
[2016-12-18 07:32] LABS: ALANINE AMINOTRANSFERASE 6 U/L (3-33); ANION GAP 16 (5-15); ASPARTATE AMINO TRANSFERASE 15 U/L (5-40); CALCIUM 9.3 mg/dL (8.6-10.2); CARBON DIOXIDE 19 mEQ/L (20-30); CHLORIDE 107 mEQ/L (98-107); CREATININE 2.5 mg/dL (0.5-0.9); MAGNESIUM 1.5 mg/dL (1.7-2.5); PHOSPHORUS 3.1 mg/dL (2.5-4.8); POTASSIUM 4.3 mEQ/L (3.4-4.9); SODIUM 142 mEQ/L (135-145); TOTAL PROTEIN 6.3 g/dL (6.6-8.7)
[2016-12-18 07:33] LABS: ALBUMIN/GLOBULIN RATIO 1.1 (1.0-2.7); CRP QUANT 0.5 mg/dL (< 0.5); HEMOLYSIS 0
[2016-12-18 08:13] LABS: ERYTHROCYTE SEDIMENTATION RATE 49 MM/HR (0-30)
[2016-12-18] MEDS ORDERED: NS 550ML IV ONE (08:35)
--- NOTE | 2016-12-18 08:46 | Anethesia Preoperative Eval ---
Anesthesia Pre-op PMH/ROS General Date of Evaluation: Dec 18, 2016 Time of Evaluation: 08:24 Anesthesiologist: Alton ASA Score: ASA 3 Mallampati Score Class I : Soft palate, uvula, fauces, pillars visible Class II: Soft palate, uvula, fauces visible Class III: Soft palate, base of uvula visible Class IV: Only hard plate visible Mallampati Classification: Class II Surgeon: Escobar Diagnosis: Chest Pain Surgical Procedure: SHADI Anesthesia History: none Family History: no anesthesia problems Allergies: Coded Allergies: IODINE (Verified Allergy, Intermediate, Rash, 12/16/16) ALLOPURINOL (Verified Adverse Reaction, Intermediate, rash, 12/16/16) Medications: see eMAR Past Medical History Cardiovascular: Reports: HTN, other - HL Gastrointestinal/Genitourinary: Reports: other - UTI Neurologic/Psychiatric: Reports: CVA Endocrine: Reports: DM Hematology/Immune: Reports: anemia, other - Bacteremia Anesthesia Pre-op Phys. Exam Physician Exam Last Vital Signs Date Time Temp Pulse Resp B/P Pulse Ox O2 Delivery O2 Flow Rate FiO2 12/18/16 08:25 99.2 73 20 170/80 98 Room Air 12/15/16 20:31 21 Constitutional: NAD Neurologic: CN 2-12 intact Cardiovascular: RRR Respiratory: CTA Gastrointestinal: S/NT/ND Airway Exam Mallampati Score: Class II MO: limited ROM: limited Teeth: intact Anesthesia Pre-op A/P Labs Hematology Test 12/18/16 04:55 White Blood Count 4.1 K/UL (4.8-10.8) L Red Blood Count 3.99 M/UL (4.20-5.40) L Hemoglobin 9.5 G/DL (12.0-16.0) L Hematocrit 31.6 % (37.0-47.0) L Mean Corpuscular Volume 79 FL (80-99) L Mean Corpuscular Hemoglobin 23.8 PG (27.0-31.0) L Mean Corpuscular Hemoglobin Concent 30.0 G/DL (32.0-36.0) L Red Cell Distribution Width 17.5 % (11.6-14.8) H Platelet Count 148 K/UL (150-450) L Mean Platelet Volume 7.4 FL (6.5-10.1) Neutrophils (%) (Auto) 64.0 % (45.0-75.0) Lymphocytes (%) (Auto) 14.2 % (20.0-45.0) L Monocytes (%) (Auto) 13.8 % (1.0-10.0) H Eosinophils (%) (Auto) 6.1 % (0.0-3.0) H Basophils (%) (Auto) 2.0 % (0.0-2.0) Erythrocyte Sedimentation Rate 49 MM/HR (0-30) H Chemistry Test 12/18/16 04:55 Sodium Level 142 mEQ/L (135-145) Potassium Level 4.3 mEQ/L (3.4-4.9) Chloride Level 107 mEQ/L (98-107) Carbon Dioxide Level 19 mEQ/L (20-30) L Anion Gap 16 (5-15) H Blood Urea Nitrogen 25 mg/dL (7-23) H Creatinine 2.5 mg/dL (0.5-0.9) H Estimat Glomerular Filtration Rate mL/min (>60) Glucose Level 95 mg/dL (74-106) Calcium Level 9.3 mg/dL (8.6-10.2) Phosphorus Level 3.1 mg/dL (2.5-4.8) Magnesium Level 1.5 mg/dL (1.7-2.5) L Total Bilirubin 0.2 mg/dL (0.0-1.2) Aspartate Amino Transf (AST/SGOT) 15 U/L (5-40) Alanine Aminotransferase (ALT/SGPT) 6 U/L (3-33) Alkaline Phosphatase 54 U/L (35-104) C-Reactive Protein, Quantitative 0.5 mg/dL (< 0.5) Total Protein 6.3 g/dL (6.6-8.7) L Albumin 3.3 g/dL (3.5-5.2) L Globulin 3.0 g/dL Albumin/Globulin Ratio 1.1 (1.0-2.7) Risk Assessment & Plan Assessment: ASA 3 Plan: GA Status Change Before Surgery: Linus Corado MD Dec 18, 2016 08:46
[2016-12-18] MEDS ORDERED: LR 1000ml 1,000 ML IVLG SCH (08:49)
--- NOTE | 2016-12-18 08:53 | 48 Hour Post Anesthesia Eval ---
Post Anesthesia Evaluation Procedure: SHADI Date of Evaluation: Dec 18, 2016 Time of Evaluation: 11:41 Blood Pressure Systolic: 202 0: 98 Pulse Rate: 72 Respiratory Rate: 18 Temperature (Fahrenheit): 98.6 O2 Sat by Pulse Oximetry: 99 Airway: patent Nausea: No Vomiting: No Pain Intensity: 0 Hydration Status: adequate Cardiopulmonary Status: Stable Mental Status/LOC: patient returned to baseline Follow-up Care/Observations: 0 Post-Anesthesia Complications: 0 Follow-up care needed: N/A Linus Dang MD Dec 18, 2016 08:53
--- NOTE | 2016-12-18 08:53 | Immediate Post-Op Evaluation ---
Immediate Post-Op Evalulation Immediate Post-Op Evalulation Procedure: SHADI Date of Evaluation: Dec 18, 2016 Time of Evaluation: 09:30 IV Fluids: 500 LR Blood Products: 0 Estimated Blood Loss: 0 Urinary Output: 0 Blood Pressure Systolic: 201 Blood Pressure Diastolic: 102 Pulse Rate: 73 Respiratory Rate: 18 O2 Sat by Pulse Oximetry: 99 Temperature (Fahrenheit): 98.5 Pain Score (1-10): 0 Nausea: No Vomiting: No Complications 0 Patient Status: awake, reacts, patent, extubated, none Hydration Status: adequate Linus Dang MD Dec 18, 2016 08:52
[2016-12-18] MEDS ORDERED: Oxycodone/Acetaminophen 5-325 ORAL PRN (09:00)
[2016-12-18] MEDS ORDERED: Hydromorphone 0.5mg/0.5ml inj IVP PRN (09:00)
[2016-12-18] MEDS ORDERED: Meperidine 25mg/ml Inj IV PRN ×2 (09:00→16:00)
[2016-12-18] MEDS ORDERED: Midazolam 2mg/2ml Inj IVP PRN (09:00)
[2016-12-18] MEDS ORDERED: LORazepam Inj 2mg/ml 1ml IV PRN ×2 (09:00→16:00)
[2016-12-18] MEDS ORDERED: Ketorolac 30mg Inj IV PRN (09:00)
[2016-12-18] MEDS ORDERED: fentaNYL 100 mcg/2 mL IV PRN (09:00)
[2016-12-18] MEDS: Heparin 5000 units/ml inj SUBQ SCH ×2 (09:00→21:30)
[2016-12-18] MEDS ORDERED: DiphenhydrAMINE 50mg/ml Inj IVP PRN (09:00)
[2016-12-18] MEDS ORDERED: Metoclopramide 10mg/2ml Inj IVP PRN (09:00)
[2016-12-18] MEDS ORDERED: Ketorolac 60mg Inj IV PRN (09:00)
[2016-12-18] MEDS ORDERED: Norco 7.5mg/325mg tab ORAL PRN (09:00)
[2016-12-18] MEDS ORDERED: Atropine Inj 1mg/10ml Syr IV PRN (09:00)
[2016-12-18] MEDS ORDERED: Norco 5mg/325mg tab ORAL PRN (09:00)
--- NOTE | 2016-12-18 09:04 | Pre-Procedure Note/Attestation ---
Pre-Procedure Note/Attestation Complete Prior to Procedure Procedure Narrative: trans esopahgeal echo Indications for Procedure Pre-Operative Diagnosis: bacteremia Attestation I attest that I discussed the nature of the procedure; its benefits; risks and complications; and alternatives (and the risks and benefits of such alternatives ), prior to the procedure, with the patient (or the patient's legal it sales representative). I attest that, if there was a reasonable possibility of needing a blood transfusion, the patient (or the patient's legal it sales representative) was given the [facility] standardized written summary, pursuant to the [place] Blood Safety Act ([place] Health and Safety Code # 1645, as amended). I attest that I re-evaluated the patient just prior to the surgery and that there has been no change in the patient's H&P, except as documented below: ZACHARIAH MICHAUD Dec 18, 2016 09:04
--- NOTE | 2016-12-18 09:06 | Cardiology Progress Note ---
Assessment/Plan Assessment/Plan Acute renal failure , bacterremia 10/03 blood cx UTI HTN DM id rec MAGDALENA will be performed to day will review echo risk of magdalena and alternatives d/w pt last ntied risk on injury to food pipe and teeth discussed with pt she decided to haveTEE performed consent signed Subjective Cardiovascular: Denies: chest pain, lightheadedness, palpitations Respiratory: Denies: shortness of breath Gastrointestinal/Abdominal: Denies: abdominal pain Genitourinary: Denies: burning Objective Last 24 Hour Vital Signs Date Time Temp Pulse Resp B/P Pulse Ox O2 Delivery O2 Flow Rate FiO2 12/18/16 08:25 99.2 73 20 170/80 98 Room Air 12/18/16 05:30 149/69 12/18/16 04:00 98.8 73 18 149/69 94 Room Air 12/18/16 00:00 99.1 75 18 156/69 93 Room Air 12/17/16 21:28 147/79 12/17/16 20:00 98.2 69 20 147/79 95 Room Air 12/17/16 18:34 70 135/69 12/17/16 17:43 97.9 12/17/16 16:00 97.9 70 20 135/69 92 Room Air 12/17/16 13:37 140/69 12/17/16 13:37 71 140/69 12/17/16 12:31 97.6 71 18 140/69 100 Room Air General Appearance: alert Neck: supple Cardiovascular: normal rate, regular rhythm Respiratory/Chest: lungs clear Abdomen: non tender, soft Extremities: non-tender, moderate edema Intake and Output 12/17/16 12/18/16 19:00 07:00 Intake Total 1505.000 ml 805 ml Output Total 700 ml 875 ml Balance 805.000 ml -70 ml Intake Oral 480 ml IV Total 1025.000 ml 805 ml Output Urine Total 700 ml 875 ml Laboratory Tests Test 12/18/16 04:55 White Blood Count 4.1 K/UL (4.8-10.8) L Red Blood Count 3.99 M/UL (4.20-5.40) L Hemoglobin 9.5 G/DL (12.0-16.0) L Hematocrit 31.6 % (37.0-47.0) L Mean Corpuscular Volume 79 FL (80-99) L Mean Corpuscular Hemoglobin 23.8 PG (27.0-31.0) L Mean Corpuscular Hemoglobin Concent 30.0 G/DL (32.0-36.0) L Red Cell Distribution Width 17.5 % (11.6-14.8) H Platelet Count 148 K/UL (150-450) L Mean Platelet Volume 7.4 FL (6.5-10.1) Neutrophils (%) (Auto) 64.0 % (45.0-75.0) Lymphocytes (%) (Auto) 14.2 % (20.0-45.0) L Monocytes (%) (Auto) 13.8 % (1.0-10.0) H Eosinophils (%) (Auto) 6.1 % (0.0-3.0) H Basophils (%) (Auto) 2.0 % (0.0-2.0) Erythrocyte Sedimentation Rate 49 MM/HR (0-30) H Sodium Level 142 mEQ/L (135-145) Potassium Level 4.3 mEQ/L (3.4-4.9) Chloride Level 107 mEQ/L (98-107) Carbon Dioxide Level 19 mEQ/L (20-30) L Anion Gap 16 (5-15) H Blood Urea Nitrogen 25 mg/dL (7-23) H Creatinine 2.5 mg/dL (0.5-0.9) H Estimat Glomerular Filtration Rate mL/min (>60) Glucose Level 95 mg/dL (74-106) Calcium Level 9.3 mg/dL (8.6-10.2) Phosphorus Level 3.1 mg/dL (2.5-4.8) Magnesium Level 1.5 mg/dL (1.7-2.5) L Total Bilirubin 0.2 mg/dL (0.0-1.2) Aspartate Amino Transf (AST/SGOT) 15 U/L (5-40) Alanine Aminotransferase (ALT/SGPT) 6 U/L (3-33) Alkaline Phosphatase 54 U/L (35-104) C-Reactive Protein, Quantitative 0.5 mg/dL (< 0.5) Total Protein 6.3 g/dL (6.6-8.7) L Albumin 3.3 g/dL (3.5-5.2) L Globulin 3.0 g/dL Albumin/Globulin Ratio 1.1 (1.0-2.7) Microbiology Date/Time Source Procedure Growth Status 12/15/16 11:20 Blood Blood Culture - Preliminary NO GROWTH AFTER 48 HOURS Resulted 12/15/16 11:15 Blood Blood Culture - Preliminary NO GROWTH AFTER 48 HOURS Resulted ZACHARIAH MICHAUD Dec 18, 2016 09:06
--- NOTE | 2016-12-18 09:11 | Brief Operative Note ---
Immediate Post Operative Note Operative Note Pre-op Diagnosis: bacteremia Procedure: SHADI pulse / continuouous wave and color flow Post-op Diagnosis: same as pre-op Findings: other - thickened MV leafalet and aortic vavel leaflet no vegatation noted Anesthesia: moderate sedation Specimen: none Complications: none Condition: stable Estimated Blood Loss: none Drains: none Implant(s) used?: No ZACHARIAH MICHAUD Dec 18, 2016 09:10
[2016-12-18] MEDS: Labetalol 5mg/ml 20ml vial IV PRN ×2 (09:27→10:01)
[2016-12-18] MEDS: Aspirin Baby 81mg ORAL SCH (10:44)
[2016-12-18] MEDS: Citalopram 20mg Tab ORAL SCH (10:44)
[2016-12-18] MEDS: Imdur 30mg tab ORAL SCH (10:44)
[2016-12-18] MEDS: Docusate 100mg tablet ORAL SCH ×3 (10:45→18:14)
[2016-12-18] MEDS: Labetalol 200mg tab ORAL SCH ×3 (10:49→18:15)
[2016-12-18] MEDS: Calcitriol 0.5mcg Cap ORAL SCH (10:49)
--- NOTE | 2016-12-18 10:50 | Infectious Diseases Prog Note ---
Assessment/Plan Assessment/Plan ASSESSMENT: 71-year-old female with: CONS bacteremia 10/03 with LALITO r/o SBE - repeat BCx NGTD - SHADI 12/18: neg veg - TTE: anterior mitral valve vegitation. UTI - UCx E.aerogenes SP Rx US: Negative for hydronephrosis. Left renal calcifications, may be parenchymal or calyceal. Bilateral renal cysts. Empty bladder with Velasco catheter. Negative influenza Afebrile without leukocytosis Diabetes History of CVA MRSA colonized NKDA Full Code PLAN: DC IV vancomycin d# 4, monitor pt off of ABX ( 12/17 SP cefepime d# 7 / ) Monitor CBC, temperatures Monitor BMP Subjective Allergies: Coded Allergies: IODINE (Verified Allergy, Intermediate, Rash, 12/16/16) ALLOPURINOL (Verified Adverse Reaction, Intermediate, rash, 12/16/16) Subjective remains afebrile. comfortable repeat BCx NGTD SHADI(-) veg Objective Vital Signs Last 24 Hour Vital Signs Date Time Temp Pulse Resp B/P Pulse Ox O2 Delivery O2 Flow Rate FiO2 12/18/16 10:43 18 184/73 12/18/16 10:10 97.4 71 19 199/96 97 Room Air 12/18/16 10:01 71 199/97 12/18/16 10:00 71 15 199/97 99 Room Air 12/18/16 09:50 71 17 203/98 98 Room Air 12/18/16 09:47 215/101 12/18/16 09:40 70 18 211/102 100 Simple Mask 6.0 12/18/16 09:30 72 18 208/100 100 Simple Mask 6.0 12/18/16 09:27 72 202/102 12/18/16 09:25 70 17 198/102 100 Simple Mask 6.0 12/18/16 09:22 72 18 99 12/18/16 09:21 73 18 99 12/18/16 09:19 98.5 72 19 202/102 100 Simple Mask 6.0 12/18/16 08:25 99.2 73 20 170/80 98 Room Air 12/18/16 05:30 149/69 12/18/16 04:00 98.8 73 18 149/69 94 Room Air 12/18/16 00:00 99.1 75 18 156/69 93 Room Air 12/17/16 21:28 147/79 12/17/16 20:00 98.2 69 20 147/79 95 Room Air 12/17/16 18:34 70 135/69 12/17/16 17:43 97.9 12/17/16 16:00 97.9 70 20 135/69 92 Room Air 12/17/16 13:37 140/69 12/17/16 13:37 71 140/69 12/17/16 12:31 97.6 71 18 140/69 100 Room Air Height (Feet): 5 Height (Inches): 2.00 Weight (Pounds): 145 General Appearance: no acute distress Respiratory/Chest: no respiratory distress Cardiovascular: normal rate, regular rhythm, systolic murmur Abdomen: normal bowel sounds, soft, non tender, non distended Microbiology Date/Time Source Procedure Growth Status 12/15/16 11:20 Blood Blood Culture - Preliminary NO GROWTH AFTER 48 HOURS Resulted 12/15/16 11:15 Blood Blood Culture - Preliminary NO GROWTH AFTER 48 HOURS Resulted Laboratory Tests Test 12/18/16 04:55 White Blood Count 4.1 K/UL (4.8-10.8) L Red Blood Count 3.99 M/UL (4.20-5.40) L Hemoglobin 9.5 G/DL (12.0-16.0) L Hematocrit 31.6 % (37.0-47.0) L Mean Corpuscular Volume 79 FL (80-99) L Mean Corpuscular Hemoglobin 23.8 PG (27.0-31.0) L Mean Corpuscular Hemoglobin Concent 30.0 G/DL (32.0-36.0) L Red Cell Distribution Width 17.5 % (11.6-14.8) H Platelet Count 148 K/UL (150-450) L Mean Platelet Volume 7.4 FL (6.5-10.1) Neutrophils (%) (Auto) 64.0 % (45.0-75.0) Lymphocytes (%) (Auto) 14.2 % (20.0-45.0) L Monocytes (%) (Auto) 13.8 % (1.0-10.0) H Eosinophils (%) (Auto) 6.1 % (0.0-3.0) H Basophils (%) (Auto) 2.0 % (0.0-2.0) Erythrocyte Sedimentation Rate 49 MM/HR (0-30) H Sodium Level 142 mEQ/L (135-145) Potassium Level 4.3 mEQ/L (3.4-4.9) Chloride Level 107 mEQ/L (98-107) Carbon Dioxide Level 19 mEQ/L (20-30) L Anion Gap 16 (5-15) H Blood Urea Nitrogen 25 mg/dL (7-23) H Creatinine 2.5 mg/dL (0.5-0.9) H Estimat Glomerular Filtration Rate mL/min (>60) Glucose Level 95 mg/dL (74-106) Calcium Level 9.3 mg/dL (8.6-10.2) Phosphorus Level 3.1 mg/dL (2.5-4.8) Magnesium Level 1.5 mg/dL (1.7-2.5) L Total Bilirubin 0.2 mg/dL (0.0-1.2) Aspartate Amino Transf (AST/SGOT) 15 U/L (5-40) Alanine Aminotransferase (ALT/SGPT) 6 U/L (3-33) Alkaline Phosphatase 54 U/L (35-104) C-Reactive Protein, Quantitative 0.5 mg/dL (< 0.5) Total Protein 6.3 g/dL (6.6-8.7) L Albumin 3.3 g/dL (3.5-5.2) L Globulin 3.0 g/dL Albumin/Globulin Ratio 1.1 (1.0-2.7) Current Medications Medications (Trade) Dose Ordered Sig/Letty Route PRN Reason Start Time Stop Time Status Last Admin Dose Admin Acetaminophen (Tylenol) 650 mg Q4H PRN ORAL T>100.5 12/11/16 18:00 01/10/17 17:59 Acetaminophen/ Hydrocodone Bitart ([place] 5/325) 1 tab Q1H PRN ORAL Mild Pain (Pain Scale 1-3) 12/18/16 09:00 12/18/16 16:00 Acetaminophen/ Hydrocodone Bitart ([place] 7.5/325) 1 ea Q1H PRN ORAL Moderate Pain (Pain Scale 4-6) 12/18/16 09:00 12/18/16 16:00 Al Hydroxide/Mg Hydroxide (Mylanta) 15 ml Q1H PRN ORAL gi upset 12/18/16 09:00 12/18/16 16:00 Aspirin (ASA) 81 mg DAILY ORAL 12/13/16 09:00 01/12/17 08:59 12/17/16 08:42 Atorvastatin Calcium (Lipitor) 10 mg QHS ORAL 12/13/16 21:00 01/12/17 20:59 12/17/16 21:28 Atropine Sulfate 0.5 mg 0.5 mg Q5M PRN IV HR <40 12/18/16 09:00 12/18/16 16:00 Calcitriol (Rocaltrol) 0.5 mcg DAILY ORAL 12/16/16 13:00 01/15/17 12:59 12/17/16 08:43 Calcium Carbonate (Os-Angel) 1,250 mg THREE TIMES A DAY ORAL 12/16/16 13:00 01/15/17 12:59 12/17/16 18:34 Citalopram Hydrobromide (celeXA) 40 mg DAILY ORAL 12/13/16 09:00 01/12/17 08:59 12/17/16 08:49 Clonidine HCl (Catapres) 0.1 mg Q4H PRN ORAL SBP > 160 12/13/16 15:00 01/12/17 14:59 Clopidogrel Bisulfate (Plavix) 75 mg DAILY ORAL 12/12/16 09:00 01/11/17 08:59 12/17/16 08:43 Dextrose (Dextrose 50%) STAT PRN IV Hypoglycemia 12/11/16 21:15 01/10/17 21:14 Diphenhydramine HCl (Benadryl) 25 mg Q15M PRN IVP Itching 12/18/16 09:00 12/18/16 16:00 Docusate Sodium (Colace) 100 mg TID ORAL 12/14/16 09:00 01/13/17 08:59 12/17/16 18:34 Ergocalciferol (Drisdol) 50,000 intlu QWEEK ORAL 12/16/16 13:00 01/15/17 12:59 12/16/16 14:42 Fentanyl Citrate (Sublimaze 100 mcg/2 mL) 25 mcg Q10M PRN IV Moderate Pain (Pain Scale 4-6) 12/18/16 09:00 12/18/16 16:00 Heparin Sodium (Porcine) (Heparin 5000 units/ml) 5,000 units EVERY 12 HOURS SUBQ 12/11/16 21:00 01/10/17 20:59 12/17/16 08:44 Hydralazine HCl (Apresoline) 5 mg Q30M PRN IV SBP>160 / DBP>90 12/18/16 09:00 12/18/16 16:00 12/18/16 09:47 Hydralazine HCl (Apresoline) 50 mg Q8HR ORAL 12/15/16 14:00 01/14/17 13:59 12/18/16 05:30 Hydromorphone HCl (Dilaudid) 0.5 mg Q15M PRN IVP Severe Pain (Pain Scale 7-10) 12/18/16 09:00 12/18/16 16:00 Insulin Aspart (NovoLOG) BEFORE MEALS AND HS SUBQ 12/11/16 22:30 01/10/17 22:29 12/17/16 21:30 Isosorbide Mononitrate 60 mg 60 mg DAILY ORAL 12/13/16 09:00 01/12/17 08:59 12/17/16 08:43 Ketorolac Tromethamine (Toradol 30mg) 15 mg Q1H PRN IV Moderate Breakthru Pain (5-7) 12/18/16 09:00 12/18/16 16:00 Ketorolac Tromethamine (Toradol) 60 mg Q1H PRN IV Severe Breakthru Pain (>7) 12/18/16 09:00 12/18/16 16:00 Labetalol HCl (Normodyne) 5 mg Q10M PRN IV SBP>160 / DBP>90 12/18/16 09:00 12/18/16 16:00 12/18/16 10:01 Labetalol HCl (Normodyne) 200 mg TID ORAL 12/12/16 20:00 01/11/17 19:59 12/17/16 18:34 Lactated Ringer's (Lactated Ringer's 1000ml) 1,000 ml @ 10 mls/hr Q24H IVLG 12/18/16 08:49 12/18/16 10:48 Lorazepam (Ativan 2mg/ml 1ml) 1 mg Q15M PRN IV For Anxiety 12/18/16 09:00 12/18/16 16:00 Meperidine HCl (Demerol) 25 mg Q5M PRN IV Shivering. May repeat x 1 12/18/16 09:00 12/18/16 16:00 Metoclopramide HCl (Reglan) 10 mg Q1H PRN IVP Nausea & Vomiting 12/18/16 09:00 12/18/16 16:00 Midazolam HCl (Versed 2mg/2ml vial) 1 mg Q15M PRN IVP For Anxiety 12/18/16 09:00 12/18/16 16:00 Morphine Sulfate (Morphine Sulfate) 2 mg Q4H PRN IVP Moderate Pain (Pain Scale 4-6) 12/11/16 18:00 12/18/16 17:59 12/17/16 17:13 Nitroglycerin (Ntg) 0.4 mg Q5MIN X 3 DOSES PRN SL Prn Chest Pain 12/11/16 18:15 01/10/17 18:14 Ondansetron HCl (Zofran) 4 mg Q1H PRN IVP Nausea & Vomiting 12/18/16 09:00 12/18/16 16:00 Ondansetron HCl (Zofran) 4 mg Q6H PRN IVP Nausea & Vomiting 12/11/16 18:00 01/10/17 17:59 Oxycodone/ Acetaminophen (Percocet 5-325) 1 tab Q1H PRN ORAL Severe Pain (Pain Scale 7-10) 12/18/16 09:00 12/18/16 16:00 Pantoprazole (Protonix) 40 mg BID ORAL 12/13/16 18:00 01/12/17 17:59 12/17/16 18:34 Polyethylene Glycol (Miralax) 17 gm DAILYPRN PRN ORAL Constipation 12/11/16 18:00 01/10/17 17:59 12/16/16 20:56 Sodium Chloride (Sodium Chloride 1000ml bag) 1,000 ml @ 75 mls/hr [id number] IVLG 12/13/16 15:00 01/12/17 14:59 12/18/16 01:13 Temazepam (Restoril) 15 mg HSPRN PRN ORAL Insomnia 12/11/16 21:00 12/18/16 20:59 Vancomycin HCl (Vanco rx to dose) 1 ea DAILY PRN MISC Per rx protocol 12/15/16 10:45 01/14/17 10:44 EVAN HOGUE Dec 18, 2016 10:49
[2016-12-18] MEDS ORDERED: Nitroglycerin Subl 0.4mg tab (Bottle Of 25) SL PRN (16:00)
--- NOTE | 2016-12-18 16:14 | General Progress Note ---
Assessment/Plan Status: stable Status Narrative Cr 2.5 Assessment/Plan status; Acute renal failure , PreRenal mainly ( being treated with diuretics...? CHF ? high Vanco ? ? Underlying Diabetic Hypertensive kidney disease HyperUrecemia UTI HTN DM High Cholestrol Microcytic Anemia Plan; Adjust BP meds- increase hydralazine start PO calcium and Vit D - Slow Hydrate- DC diuretics 2D echo- results noted anemia zee monitor Vanco level per orders Negative for hydronephrosis Left renal calcifications, may be parenchymal or calyceal Bilateral renal cysts Empty bladder with Velasco catheter. Subjective ROS Limited/Unobtainable: No Allergies: Coded Allergies: IODINE (Verified Allergy, Intermediate, Rash, 12/16/16) ALLOPURINOL (Verified Adverse Reaction, Intermediate, rash, 12/16/16) Objective Last 24 Hour Vital Signs Date Time Temp Pulse Resp B/P Pulse Ox O2 Delivery O2 Flow Rate FiO2 12/18/16 14:41 235/101 12/18/16 14:31 235/101 12/18/16 14:31 81 235/102 12/18/16 12:00 98.0 69 18 150/80 96 Room Air 12/18/16 10:49 71 184/73 12/18/16 10:44 184/73 12/18/16 10:43 18 184/73 12/18/16 10:10 97.4 71 19 199/96 97 Room Air 12/18/16 10:01 71 199/97 12/18/16 10:00 71 15 199/97 99 Room Air 12/18/16 09:50 71 17 203/98 98 Room Air 12/18/16 09:47 215/101 12/18/16 09:40 70 18 211/102 100 Simple Mask 6.0 12/18/16 09:30 72 18 208/100 100 Simple Mask 6.0 12/18/16 09:27 72 202/102 12/18/16 09:25 70 17 198/102 100 Simple Mask 6.0 12/18/16 09:22 72 18 99 12/18/16 09:21 73 18 99 12/18/16 09:19 98.5 72 19 202/102 100 Simple Mask 6.0 12/18/16 08:25 99.2 73 20 170/80 98 Room Air 12/18/16 05:30 149/69 12/18/16 04:00 98.8 73 18 149/69 94 Room Air 12/18/16 00:00 99.1 75 18 156/69 93 Room Air 12/17/16 21:28 147/79 12/17/16 20:00 98.2 69 20 147/79 95 Room Air 12/17/16 18:34 70 135/69 12/17/16 17:43 97.9 Intake and Output 12/17/16 12/18/16 19:00 07:00 Intake Total 1505.000 ml 805 ml Output Total 700 ml 875 ml Balance 805.000 ml -70 ml Intake Oral 480 ml IV Total 1025.000 ml 805 ml Output Urine Total 700 ml 875 ml Laboratory Tests 12/18/16 04:55: White Blood Count 4.1L, Red Blood Count 3.99L, Hemoglobin 9.5L, Hematocrit 31.6L , Mean Corpuscular Volume 79L, Mean Corpuscular Hemoglobin 23.8L, Mean Corpuscular Hemoglobin Concent 30.0L, Red Cell Distribution Width 17.5H, Platelet Count 148L, Mean Platelet Volume 7.4, Neutrophils (%) (Auto) 64.0, Lymphocytes (%) (Auto) 14.2L, Monocytes (%) (Auto) 13.8H, Eosinophils (%) (Auto ) 6.1H, Basophils (%) (Auto) 2.0, Erythrocyte Sedimentation Rate 49H, Sodium Level 142, Potassium Level 4.3, Chloride Level 107, Carbon Dioxide Level 19L, Anion Gap 16H, Blood Urea Nitrogen 25H, Creatinine 2.5H, Estimat Glomerular Filtration Rate , Glucose Level 95, Calcium Level 9.3, Phosphorus Level 3.1, Magnesium Level 1.5L, Total Bilirubin 0.2, Aspartate Amino Transf (AST/SGOT) 15 , Alanine Aminotransferase (ALT/SGPT) 6, Alkaline Phosphatase 54, C-Reactive Protein, Quantitative 0.5, Total Protein 6.3L, Albumin 3.3L, Globulin 3.0, Albumin/Globulin Ratio 1.1 Height (Feet): 5 Height (Inches): 2.00 Weight (Pounds): 145 General Appearance: no apparent distress Objective other physical exam not changed ROD PATE Dec 18, 2016 16:14
[2016-12-18] MEDS ORDERED: Tubing IV Secondary IV ONE ×2 (16:30→17:05)
[2016-12-18] MEDS ORDERED: NS 275ml ONE (17:05)
[2016-12-18] MEDS ORDERED: Morphine Sulfate 2mg/ml Inj IVP PRN (18:00)
[2016-12-18] MEDS ORDERED: Miralax 17gm pkt ORAL PRN (18:00)
[2016-12-19 00:17] VITALS: BP 157/74
[2016-12-19 04:15] VITALS: BP 146/70
[2016-12-19] MEDS: HydrALAZINE 25mg tab ORAL SCH ×2 (05:56→13:42)
[2016-12-19] MEDS: NovoLOG Insulin Flexpen SUBQ SCH ×4 (06:26→23:14)
[2016-12-19 08:00] VITALS: BP 149/66
--- NOTE | 2016-12-19 09:04 | Infectious Diseases Prog Note ---
Assessment/Plan Assessment/Plan ASSESSMENT: 71-year-old female with: CONS bacteremia 10/03 with LALITO r/o SBE - repeat BCx NGTD - SHADI 12/18: neg veg - TTE: anterior mitral valve vegitation. UTI - UCx E.aerogenes SP Rx US: Negative for hydronephrosis. Left renal calcifications, may be parenchymal or calyceal. Bilateral renal cysts. Empty bladder with Velasco catheter. Negative influenza Afebrile without leukocytosis HTN - better controlled Diabetes History of CVA MRSA colonized NKDA Full Code PLAN: monitor pt off of ABX ( 12/18 SP IV vancomycin d# 4 ) ( 12/17 SP cefepime d# 7 / 7 ) Monitor CBC, temperatures Monitor BMP Subjective Allergies: Coded Allergies: IODINE (Verified Allergy, Intermediate, Rash, 12/16/16) ALLOPURINOL (Verified Adverse Reaction, Intermediate, rash, 12/16/16) Subjective remains afebrile. comfortable repeat BCx NGTD transferred to [facility] for HTN Objective Vital Signs Last 24 Hour Vital Signs Date Time Temp Pulse Resp B/P Pulse Ox O2 Delivery O2 Flow Rate FiO2 12/19/16 05:56 146/70 12/19/16 04:15 98.4 73 18 146/70 96 Room Air 12/19/16 04:00 73 12/19/16 00:17 97.7 75 19 157/74 98 Room Air 12/19/16 00:00 69 12/18/16 21:28 122/60 12/18/16 21:00 72 12/18/16 20:00 98.1 75 18 122/56 94 Room Air 12/18/16 18:15 76 137/68 12/18/16 16:00 74 12/18/16 16:00 98.1 76 18 137/68 96 Room Air 12/18/16 14:41 235/101 12/18/16 14:31 235/101 12/18/16 14:31 81 235/102 12/18/16 12:00 98.0 69 18 150/80 96 Room Air 12/18/16 10:49 71 184/73 12/18/16 10:44 184/73 12/18/16 10:43 18 184/73 12/18/16 10:10 97.4 71 19 199/96 97 Room Air 3/21/17 10:01 71 199/97 12/18/16 10:00 71 15 199/97 99 Room Air 12/18/16 09:50 71 17 203/98 98 Room Air 12/18/16 09:47 215/101 12/18/16 09:40 70 18 211/102 100 Simple Mask 6.0 12/18/16 09:30 72 18 208/100 100 Simple Mask 6.0 12/18/16 09:27 72 202/102 12/18/16 09:25 70 17 198/102 100 Simple Mask 6.0 12/18/16 09:22 72 18 99 12/18/16 09:21 73 18 99 12/18/16 09:19 98.5 72 19 202/102 100 Simple Mask 6.0 Height (Feet): 5 Height (Inches): 2.00 Weight (Pounds): 145 General Appearance: no acute distress Respiratory/Chest: no respiratory distress Cardiovascular: normal rate, regular rhythm Abdomen: normal bowel sounds, soft, non tender, non distended Laboratory Tests Test 12/19/16 06:44 Random Vancomycin Level 14.2 ug/mL Current Medications Medications (Trade) Dose Ordered Sig/Letty Route PRN Reason Start Time Stop Time Status Last Admin Dose Admin Acetaminophen (Tylenol) 650 mg Q4H PRN ORAL T>100.5 12/18/16 18:00 01/17/17 17:59 Aspirin (ASA) 81 mg DAILY ORAL 12/19/16 09:00 01/18/17 08:59 Atorvastatin Calcium (Lipitor) 10 mg QHS ORAL 12/18/16 21:00 01/17/17 20:59 12/18/16 21:28 Calcitriol (Rocaltrol) 0.5 mcg DAILY ORAL 12/19/16 09:00 01/18/17 08:59 Calcium Carbonate (Os-Angel) 1,250 mg THREE TIMES A DAY ORAL 12/18/16 18:00 01/17/17 17:59 12/18/16 18:14 Citalopram Hydrobromide (celeXA) 40 mg DAILY ORAL 12/19/16 09:00 01/18/17 08:59 Clonidine HCl (Catapres) 0.1 mg Q4H PRN ORAL SBP > 160 12/18/16 19:00 01/17/17 18:59 Clopidogrel Bisulfate (Plavix) 75 mg DAILY ORAL 12/19/16 09:00 01/18/17 08:59 Dextrose (Dextrose 50%) STAT PRN IV Hypoglycemia 12/18/16 21:15 01/17/17 21:14 Docusate Sodium (Colace) 100 mg TID ORAL 12/18/16 18:00 01/17/17 17:59 12/18/16 18:14 Ergocalciferol (Drisdol) 50,000 intlu Acuna@0900 ORAL 12/23/16 09:00 01/22/17 08:59 Heparin Sodium (Porcine) (Heparin 5000 units/ml) 5,000 units EVERY 12 HOURS SUBQ 12/18/16 21:00 01/17/17 20:59 12/18/16 21:30 Hydralazine HCl (Apresoline) 50 mg Q8HR ORAL 12/18/16 22:00 01/17/17 21:59 12/19/16 05:56 Insulin Aspart (NovoLOG) BEFORE MEALS AND HS SUBQ 12/18/16 16:30 01/17/17 16:29 12/18/16 18:17 Isosorbide Mononitrate (Imdur) 60 mg DAILY ORAL 12/19/16 09:00 01/18/17 08:59 Labetalol HCl (Normodyne) 200 mg TID ORAL 12/18/16 18:00 01/17/17 17:59 12/18/16 18:15 Morphine Sulfate (Morphine Sulfate) 2 mg Q4H PRN IVP Moderate Pain (Pain Scale 4-6) 12/18/16 18:00 12/25/16 17:59 12/18/16 21:39 Nitroglycerin (Ntg) 0.4 mg Q5MIN X 3 DOSES PRN SL Prn Chest Pain 12/18/16 16:00 01/17/17 15:59 Ondansetron HCl (Zofran) 4 mg Q6H PRN IVP Nausea & Vomiting 12/18/16 18:00 01/17/17 17:59 Pantoprazole (Protonix) 40 mg BID ORAL 12/18/16 18:00 01/17/17 17:59 12/18/16 18:15 Polyethylene Glycol (Miralax) 17 gm DAILYPRN PRN ORAL Constipation 12/18/16 18:00 01/17/17 17:59 Temazepam (Restoril) 15 mg HSPRN PRN ORAL Insomnia 12/18/16 21:00 12/25/16 20:59 Vancomycin HCl (Vanco rx to dose) 1 ea DAILY PRN MISC Per rx protocol 12/19/16 09:00 01/18/17 08:59 EVAN HOGUE Dec 19, 2016 09:04
[2016-12-19] MEDS: Citalopram 20mg Tab ORAL SCH (09:19)
[2016-12-19] MEDS: Aspirin Baby 81mg ORAL SCH (09:19)
[2016-12-19] MEDS: Docusate 100mg tablet ORAL SCH ×3 (09:19→17:08)
[2016-12-19] MEDS: Calcitriol 0.5mcg Cap ORAL SCH (09:20)
[2016-12-19] MEDS: Imdur 30mg tab ORAL SCH (09:21)
[2016-12-19] MEDS: Heparin 5000 units/ml inj SUBQ SCH ×2 (09:23→23:13)
[2016-12-19] MEDS: Labetalol 200mg tab ORAL SCH ×3 (09:25→17:09)
[2016-12-19] MEDS ORDERED: Lidocaine 1% MPF 10mg/ml 5ml ONE (09:27)
[2016-12-19] MEDS ORDERED: Alfentanil 2ml Inj ONE (09:27)
[2016-12-19 12:00] VITALS: BP 145/67
--- NOTE | 2016-12-19 12:37 | General Progress Note ---
Assessment/Plan Status: stable Status Narrative in [facility] for previously high BP Assessment/Plan status; Acute renal failure , PreRenal mainly ( being treated with diuretics...? CHF ? high Vanco ? ? Underlying Diabetic Hypertensive kidney disease HyperUrecemia UTI HTN controlled DM High Cholestrol Microcytic Anemia Plan; no labs today- Adjust BP meds- increase hydralazine start PO calcium and Vit D - Slow Hydrate- DC diuretics 2D echo- results noted anemia zee monitor Vanco level per orders Negative for hydronephrosis Left renal calcifications, may be parenchymal or calyceal Bilateral renal cysts Empty bladder with Velasco catheter. Subjective ROS Limited/Unobtainable: No Constitutional: Reports: malaise Allergies: Coded Allergies: IODINE (Verified Allergy, Intermediate, Rash, 12/16/16) ALLOPURINOL (Verified Adverse Reaction, Intermediate, rash, 12/16/16) Objective Last 24 Hour Vital Signs Date Time Temp Pulse Resp B/P Pulse Ox O2 Delivery O2 Flow Rate FiO2 12/19/16 09:25 81 149/66 12/19/16 09:21 148/66 12/19/16 08:00 81 12/19/16 05:56 146/70 12/19/16 04:15 98.4 73 18 146/70 96 Room Air 12/19/16 04:00 73 12/19/16 00:17 97.7 75 19 157/74 98 Room Air 12/19/16 00:00 69 12/18/16 21:28 122/60 12/18/16 21:00 72 12/18/16 20:00 98.1 75 18 122/56 94 Room Air 12/18/16 18:15 76 137/68 12/18/16 16:00 74 12/18/16 16:00 98.1 76 18 137/68 96 Room Air 12/18/16 14:41 235/101 12/18/16 14:31 235/101 12/18/16 14:31 81 235/102 Intake and Output 12/18/16 12/19/16 19:00 07:00 Intake Total 640 ml 100 ml Output Total 700 ml 800 ml Balance -60 ml -700 ml Intake Oral 240 ml 100 ml IV Total 400 ml Output Urine Total 700 ml 800 ml Estimated Blood Loss 0 ml Laboratory Tests 12/19/16 06:44: Random Vancomycin Level 14.2 Height (Feet): 5 Height (Inches): 2.00 Weight (Pounds): 145 General Appearance: no apparent distress Objective other physical exam not changed ROD PATE Dec 19, 2016 12:36
--- NOTE | 2016-12-19 15:25 | Pulmonology Progress Note ---
Assessment/Plan Problems: (1) Sepsis (2) ATN (acute tubular necrosis) (3) UTI (urinary tract infection) Assessment/Plan abx as per ID SHADI today check cultures check electrolytes tolerating well Subjective ROS Limited/Unobtainable: No Interval Events: late note for 12/18/16 Allergies: Coded Allergies: IODINE (Verified Allergy, Intermediate, Rash, 12/16/16) ALLOPURINOL (Verified Adverse Reaction, Intermediate, rash, 12/16/16) Objective Last 24 Hour Vital Signs Date Time Temp Pulse Resp B/P Pulse Ox O2 Delivery O2 Flow Rate FiO2 12/19/16 13:42 144/67 12/19/16 12:39 73 144/67 12/19/16 12:00 97.0 73 17 145/67 98 Room Air 12/19/16 12:00 82 12/19/16 09:25 81 149/66 12/19/16 09:21 148/66 12/19/16 08:00 97.9 81 18 149/66 97 Room Air 12/19/16 08:00 81 12/19/16 05:56 146/70 12/19/16 04:15 98.4 73 18 146/70 96 Room Air 12/19/16 04:00 73 12/19/16 00:17 97.7 75 19 157/74 98 Room Air 12/19/16 00:00 69 12/18/16 21:28 122/60 12/18/16 21:00 72 12/18/16 20:00 98.1 75 18 122/56 94 Room Air 12/18/16 18:15 76 137/68 12/18/16 16:00 74 12/18/16 16:00 98.1 76 18 137/68 96 Room Air Intake and Output 12/18/16 12/19/16 19:00 07:00 Intake Total 640 ml 100 ml Output Total 700 ml 800 ml Balance -60 ml -700 ml Intake Oral 240 ml 100 ml IV Total 400 ml Output Urine Total 700 ml 800 ml Estimated Blood Loss 0 ml Objective General Appearance: WD/WN Lines, tubes and drains: peripheral HEENT: normocephalic, atraumatic Neck: non-tender, normal alignment Respiratory/Chest: chest wall non-tender, lungs clear Cardiovascular/Chest: normal peripheral pulses, regular rhythm Abdomen: normal bowel sounds, non tender Genitourinary/Rectal: normal genital exam, normal rectal exam Extremities: normal range of motion, non-tender Laboratory Tests 12/19/16 06:44: Random Vancomycin Level 14.2 Current Medications Medications (Trade) Dose Ordered Sig/Letty Route PRN Reason Start Time Stop Time Status Last Admin Dose Admin Acetaminophen (Tylenol) 650 mg Q4H PRN ORAL T>100.5 12/18/16 18:00 01/17/17 17:59 Aspirin (ASA) 81 mg DAILY ORAL 12/19/16 09:00 01/18/17 08:59 12/19/16 09:19 Atorvastatin Calcium (Lipitor) 10 mg QHS ORAL 12/18/16 21:00 01/17/17 20:59 12/18/16 21:28 Calcitriol (Rocaltrol) 0.5 mcg DAILY ORAL 12/19/16 09:00 01/18/17 08:59 12/19/16 09:20 Calcium Carbonate (Os-Angel) 1,250 mg THREE TIMES A DAY ORAL 12/18/16 18:00 01/17/17 17:59 12/19/16 12:40 Citalopram Hydrobromide (celeXA) 40 mg DAILY ORAL 12/19/16 09:00 01/18/17 08:59 12/19/16 09:19 Clonidine HCl (Catapres) 0.1 mg Q4H PRN ORAL SBP > 160 12/18/16 19:00 01/17/17 18:59 Clopidogrel Bisulfate (Plavix) 75 mg DAILY ORAL 12/19/16 09:00 01/18/17 08:59 12/19/16 09:24 Dextrose (Dextrose 50%) STAT PRN IV Hypoglycemia 12/18/16 21:15 01/17/17 21:14 Docusate Sodium (Colace) 100 mg TID ORAL 12/18/16 18:00 01/17/17 17:59 12/19/16 12:39 Ergocalciferol (Drisdol) 50,000 intlu Acuna@0900 ORAL 12/23/16 09:00 01/22/17 08:59 Heparin Sodium (Porcine) (Heparin 5000 units/ml) 5,000 units EVERY 12 HOURS SUBQ 12/18/16 21:00 01/17/17 20:59 12/19/16 09:23 Hydralazine HCl (Apresoline) 50 mg Q8HR ORAL 12/19/16 22:00 01/17/17 21:59 Insulin Aspart (NovoLOG) BEFORE MEALS AND HS SUBQ 12/18/16 16:30 01/17/17 16:29 12/18/16 18:17 Isosorbide Mononitrate (Imdur) 60 mg DAILY ORAL 12/19/16 09:00 01/18/17 08:59 12/19/16 09:21 Labetalol HCl (Normodyne) 200 mg TID ORAL 12/18/16 18:00 01/17/17 17:59 12/19/16 12:39 Morphine Sulfate (Morphine Sulfate) 2 mg Q4H PRN IVP Moderate Pain (Pain Scale 4-6) 12/18/16 18:00 12/25/16 17:59 12/18/16 21:39 Nitroglycerin (Ntg) 0.4 mg Q5MIN X 3 DOSES PRN SL Prn Chest Pain 12/18/16 16:00 01/17/17 15:59 Ondansetron HCl (Zofran) 4 mg Q6H PRN IVP Nausea & Vomiting 12/18/16 18:00 01/17/17 17:59 Pantoprazole (Protonix) 40 mg BID ORAL 12/18/16 18:00 01/17/17 17:59 12/19/16 09:21 Polyethylene Glycol (Miralax) 17 gm DAILYPRN PRN ORAL Constipation 12/18/16 18:00 01/17/17 17:59 Temazepam (Restoril) 15 mg HSPRN PRN ORAL Insomnia 12/18/16 21:00 12/25/16 20:59 CHARLOTTE MARTINES Dec 19, 2016 15:25
--- NOTE | 2016-12-19 15:28 | Pulmonology Progress Note ---
Assessment/Plan Problems: (1) Sepsis (2) ATN (acute tubular necrosis) (3) UTI (urinary tract infection) Assessment/Plan abx as per ID TEEws negative check cultures check electrolytes tolerating well dc home today Subjective Constitutional: Reports: no symptoms HEENT: Repors: no symptoms Respiratory: Reports: no symptoms Allergies: Coded Allergies: IODINE (Verified Allergy, Intermediate, Rash, 12/16/16) ALLOPURINOL (Verified Adverse Reaction, Intermediate, rash, 12/16/16) Objective Last 24 Hour Vital Signs Date Time Temp Pulse Resp B/P Pulse Ox O2 Delivery O2 Flow Rate FiO2 12/19/16 13:42 144/67 12/19/16 12:39 73 144/67 12/19/16 12:00 97.0 73 17 145/67 98 Room Air 12/19/16 12:00 82 12/19/16 09:25 81 149/66 12/19/16 09:21 148/66 12/19/16 08:00 97.9 81 18 149/66 97 Room Air 12/19/16 08:00 81 12/19/16 05:56 146/70 12/19/16 04:15 98.4 73 18 146/70 96 Room Air 12/19/16 04:00 73 12/19/16 00:17 97.7 75 19 157/74 98 Room Air 12/19/16 00:00 69 12/18/16 21:28 122/60 12/18/16 21:00 72 12/18/16 20:00 98.1 75 18 122/56 94 Room Air 12/18/16 18:15 76 137/68 12/18/16 16:00 74 12/18/16 16:00 98.1 76 18 137/68 96 Room Air Intake and Output 12/18/16 12/19/16 19:00 07:00 Intake Total 640 ml 100 ml Output Total 700 ml 800 ml Balance -60 ml -700 ml Intake Oral 240 ml 100 ml IV Total 400 ml Output Urine Total 700 ml 800 ml Estimated Blood Loss 0 ml Objective General Appearance: WD/WN Lines, tubes and drains: peripheral HEENT: normocephalic, atraumatic Neck: non-tender, normal alignment Respiratory/Chest: chest wall non-tender, lungs clear Cardiovascular/Chest: normal peripheral pulses, regular rhythm Abdomen: normal bowel sounds, non tender Genitourinary/Rectal: normal genital exam, normal rectal exam Extremities: normal range of motion, non-tender Laboratory Tests 12/19/16 06:44: Random Vancomycin Level 14.2 Current Medications Medications (Trade) Dose Ordered Sig/Letty Route PRN Reason Start Time Stop Time Status Last Admin Dose Admin Acetaminophen (Tylenol) 650 mg Q4H PRN ORAL T>100.5 12/18/16 18:00 01/17/17 17:59 Aspirin (ASA) 81 mg DAILY ORAL 12/19/16 09:00 01/18/17 08:59 12/19/16 09:19 Atorvastatin Calcium (Lipitor) 10 mg QHS ORAL 12/18/16 21:00 01/17/17 20:59 12/18/16 21:28 Calcitriol (Rocaltrol) 0.5 mcg DAILY ORAL 12/19/16 09:00 01/18/17 08:59 12/19/16 09:20 Calcium Carbonate (Os-Angel) 1,250 mg THREE TIMES A DAY ORAL 12/18/16 18:00 01/17/17 17:59 12/19/16 12:40 Citalopram Hydrobromide (celeXA) 40 mg DAILY ORAL 12/19/16 09:00 01/18/17 08:59 12/19/16 09:19 Clonidine HCl (Catapres) 0.1 mg Q4H PRN ORAL SBP > 160 12/18/16 19:00 01/17/17 18:59 Clopidogrel Bisulfate (Plavix) 75 mg DAILY ORAL 12/19/16 09:00 01/18/17 08:59 12/19/16 09:24 Dextrose (Dextrose 50%) STAT PRN IV Hypoglycemia 12/18/16 21:15 01/17/17 21:14 Docusate Sodium (Colace) 100 mg TID ORAL 12/18/16 18:00 01/17/17 17:59 12/19/16 12:39 Ergocalciferol (Drisdol) 50,000 intlu Acuna@0900 ORAL 12/23/16 09:00 01/22/17 08:59 Heparin Sodium (Porcine) (Heparin 5000 units/ml) 5,000 units EVERY 12 HOURS SUBQ 12/18/16 21:00 01/17/17 20:59 12/19/16 09:23 Hydralazine HCl (Apresoline) 50 mg Q8HR ORAL 12/19/16 22:00 01/17/17 21:59 Insulin Aspart (NovoLOG) BEFORE MEALS AND HS SUBQ 12/18/16 16:30 01/17/17 16:29 12/18/16 18:17 Isosorbide Mononitrate (Imdur) 60 mg DAILY ORAL 12/19/16 09:00 01/18/17 08:59 12/19/16 09:21 Labetalol HCl (Normodyne) 200 mg TID ORAL 12/18/16 18:00 01/17/17 17:59 12/19/16 12:39 Morphine Sulfate (Morphine Sulfate) 2 mg Q4H PRN IVP Moderate Pain (Pain Scale 4-6) 12/18/16 18:00 12/25/16 17:59 12/18/16 21:39 Nitroglycerin (Ntg) 0.4 mg Q5MIN X 3 DOSES PRN SL Prn Chest Pain 12/18/16 16:00 01/17/17 15:59 Ondansetron HCl (Zofran) 4 mg Q6H PRN IVP Nausea & Vomiting 12/18/16 18:00 01/17/17 17:59 Pantoprazole (Protonix) 40 mg BID ORAL 12/18/16 18:00 01/17/17 17:59 12/19/16 09:21 Polyethylene Glycol (Miralax) 17 gm DAILYPRN PRN ORAL Constipation 12/18/16 18:00 01/17/17 17:59 Temazepam (Restoril) 15 mg HSPRN PRN ORAL Insomnia 12/18/16 21:00 12/25/16 20:59 CHARLOTTE MARTINES Dec 19, 2016 15:28
[2016-12-19 16:00] VITALS: BP 132/29
--- NOTE | 2016-12-19 18:40 | Cardiology Progress Note ---
Assessment/Plan Assessment/Plan Acute renal failure , bacterremia 10/03 blood cx UTI HTN DM magdalena neg for vegatation no complication from magdalena abx as per id being dc to [facility] bp seem fine Subjective Cardiovascular: Denies: chest pain, irregular heart rate, lightheadedness, palpitations Respiratory: Denies: shortness of breath Gastrointestinal/Abdominal: Denies: abdominal pain Genitourinary: Denies: burning Objective Last 24 Hour Vital Signs Date Time Temp Pulse Resp B/P Pulse Ox O2 Delivery O2 Flow Rate FiO2 12/19/16 17:09 72 133/74 12/19/16 16:00 97.5 72 19 132/29 99 Room Air 12/19/16 16:00 76 12/19/16 13:42 144/67 12/19/16 12:39 73 144/67 12/19/16 12:00 97.0 73 17 145/67 98 Room Air 12/19/16 12:00 82 12/19/16 09:25 81 149/66 12/19/16 09:21 148/66 12/19/16 08:00 97.9 81 18 149/66 97 Room Air 12/19/16 08:00 81 12/19/16 05:56 146/70 12/19/16 04:15 98.4 73 18 146/70 96 Room Air 12/19/16 04:00 73 12/19/16 00:17 97.7 75 19 157/74 98 Room Air 12/19/16 00:00 69 12/18/16 21:28 122/60 12/18/16 21:00 72 12/18/16 20:00 98.1 75 18 122/56 94 Room Air General Appearance: no apparent distress, alert Neck: supple Cardiovascular: normal rate, regular rhythm Respiratory/Chest: lungs clear, normal breath sounds Abdomen: normal bowel sounds, non tender, soft Extremities: moderate edema Intake and Output 12/18/16 12/19/16 19:00 07:00 Intake Total 640 ml 100 ml Output Total 700 ml 800 ml Balance -60 ml -700 ml Intake Oral 240 ml 100 ml IV Total 400 ml Output Urine Total 700 ml 800 ml Estimated Blood Loss 0 ml Laboratory Tests Test 12/19/16 06:44 Random Vancomycin Level 14.2 ug/mL ZACHARIAH MICHAUD Dec 19, 2016 18:40
[2016-12-19 20:00] VITALS: BP 154/82
[2016-12-19] MEDS: HydrALAZINE 50mg tab ORAL SCH (23:08)
[2016-12-20] VITALS: BP 158/86
[2016-12-20 04:30] VITALS: BP 186/88
[2016-12-20] MEDS: HydrALAZINE 50mg tab ORAL SCH (06:02)
[2016-12-20 06:30] VITALS: BP 157/75
[2016-12-20] MEDS: NovoLOG Insulin Flexpen SUBQ SCH (06:30)
[2016-12-20 08:15] VITALS: BP 151/71
[2016-12-20] MEDS: Labetalol 200mg tab ORAL SCH (08:39)
[2016-12-20] MEDS: Imdur 30mg tab ORAL SCH (08:39)
[2016-12-20] MEDS: Docusate 100mg tablet ORAL SCH (08:39)
[2016-12-20] MEDS: Heparin 5000 units/ml inj SUBQ SCH (08:39)
[2016-12-20] MEDS: Citalopram 20mg Tab ORAL SCH (08:40)
[2016-12-20] MEDS: Aspirin Baby 81mg ORAL SCH (08:40)
[2016-12-20] MEDS: Calcitriol 0.5mcg Cap ORAL SCH (08:40)
--- NOTE | 2016-12-20 09:15 | Infectious Diseases Prog Note ---
Assessment/Plan Assessment/Plan ASSESSMENT: 71-year-old female with: CONS bacteremia 10/03 with LALITO r/o SBE - repeat BCx NGTD - SHADI 12/18: neg veg - TTE: anterior mitral valve vegitation. UTI - UCx E.aerogenes SP Rx US: Negative for hydronephrosis. Left renal calcifications, may be parenchymal or calyceal. Bilateral renal cysts. Empty bladder with Velasco catheter. Negative influenza Afebrile without leukocytosis HTN - better controlled Diabetes History of CVA MRSA colonized NKDA Full Code PLAN: ok to DC off of ABX from ID standpoint ( 12/18 SP IV vancomycin d# 4 ) ( 12/17 SP cefepime d# 7 / 7 ) Monitor CBC, temperatures Monitor BMP Subjective Allergies: Coded Allergies: IODINE (Verified Allergy, Intermediate, Rash, 12/16/16) ALLOPURINOL (Verified Adverse Reaction, Intermediate, rash, 12/16/16) Subjective remains afebrile. comfortable repeat BCx NGTD DC planning ongoing Objective Vital Signs Last 24 Hour Vital Signs Date Time Temp Pulse Resp B/P Pulse Ox O2 Delivery O2 Flow Rate FiO2 12/20/16 08:39 77 151/71 12/20/16 08:39 151/71 12/20/16 08:15 97.6 77 18 151/71 98 Room Air 12/20/16 06:30 157/75 12/20/16 06:02 170/77 12/20/16 04:52 186/88 12/20/16 04:30 99.0 64 20 186/88 97 Room Air 12/20/16 04:00 70 12/20/16 00:00 99.0 64 20 158/86 96 Room Air 12/20/16 00:00 71 12/19/16 23:08 174/83 12/19/16 20:00 98.2 72 19 154/82 99 Room Air 12/19/16 17:09 72 133/74 12/19/16 16:00 97.5 72 19 132/29 99 Room Air 12/19/16 16:00 76 12/19/16 13:42 144/67 12/19/16 12:39 73 144/67 12/19/16 12:00 97.0 73 17 145/67 98 Room Air 12/19/16 12:00 82 12/19/16 09:25 81 149/66 12/19/16 09:21 148/66 Height (Feet): 5 Height (Inches): 2.00 Weight (Pounds): 145 General Appearance: no acute distress Respiratory/Chest: no respiratory distress Cardiovascular: normal rate, regular rhythm, systolic murmur Abdomen: normal bowel sounds, soft, non tender, non distended Current Medications Medications (Trade) Dose Ordered Sig/Letty Route PRN Reason Start Time Stop Time Status Last Admin Dose Admin Acetaminophen (Tylenol) 650 mg Q4H PRN ORAL T>100.5 12/18/16 18:00 01/17/17 17:59 Aspirin (ASA) 81 mg DAILY ORAL 12/19/16 09:00 01/18/17 08:59 12/20/16 08:40 Atorvastatin Calcium (Lipitor) 10 mg QHS ORAL 12/18/16 21:00 01/17/17 20:59 12/19/16 23:08 Calcitriol (Rocaltrol) 0.5 mcg DAILY ORAL 12/19/16 09:00 01/18/17 08:59 12/20/16 08:40 Calcium Carbonate (Os-Angel) 1,250 mg THREE TIMES A DAY ORAL 12/18/16 18:00 01/17/17 17:59 12/20/16 08:39 Citalopram Hydrobromide (celeXA) 40 mg DAILY ORAL 12/19/16 09:00 01/18/17 08:59 12/20/16 08:40 Clonidine HCl (Catapres) 0.1 mg Q4H PRN ORAL SBP > 160 12/18/16 19:00 01/17/17 18:59 12/20/16 04:52 Clopidogrel Bisulfate (Plavix) 75 mg DAILY ORAL 12/19/16 09:00 01/18/17 08:59 12/20/16 08:39 Dextrose (Dextrose 50%) STAT PRN IV Hypoglycemia 12/18/16 21:15 01/17/17 21:14 Docusate Sodium (Colace) 100 mg TID ORAL 12/18/16 18:00 01/17/17 17:59 12/20/16 08:39 Ergocalciferol (Drisdol) 50,000 intlu [place]una@0900 ORAL 12/23/16 09:00 01/22/17 08:59 Heparin Sodium (Porcine) (Heparin 5000 units/ml) 5,000 units EVERY 12 HOURS SUBQ 12/18/16 21:00 01/17/17 20:59 12/20/16 08:39 Hydralazine HCl (Apresoline) 50 mg Q8HR ORAL 12/19/16 22:00 01/17/17 21:59 12/20/16 06:02 Insulin Aspart (NovoLOG) BEFORE MEALS AND HS SUBQ 12/18/16 16:30 01/17/17 16:29 12/19/16 23:14 Isosorbide Mononitrate (Imdur) 60 mg DAILY ORAL 12/19/16 09:00 01/18/17 08:59 12/20/16 08:39 Labetalol HCl (Normodyne) 200 mg TID ORAL 12/18/16 18:00 01/17/17 17:59 12/20/16 08:39 Morphine Sulfate (Morphine Sulfate) 2 mg Q4H PRN IVP Moderate Pain (Pain Scale 4-6) 12/18/16 18:00 12/25/16 17:59 12/18/16 21:39 Nitroglycerin (Ntg) 0.4 mg Q5MIN X 3 DOSES PRN SL Prn Chest Pain 12/18/16 16:00 01/17/17 15:59 Ondansetron HCl (Zofran) 4 mg Q6H PRN IVP Nausea & Vomiting 12/18/16 18:00 01/17/17 17:59 Pantoprazole (Protonix) 40 mg BID ORAL 12/18/16 18:00 01/17/17 17:59 12/20/16 08:39 Polyethylene Glycol (Miralax) 17 gm DAILYPRN PRN ORAL Constipation 12/18/16 18:00 01/17/17 17:59 Temazepam (Restoril) 15 mg HSPRN PRN ORAL Insomnia 12/18/16 21:00 12/25/16 20:59 EVAN HOGUE 23, 2017 09:15
[2016-12-20 09:42] LABS: BASOPHILS % (AUTO) 1.8 % (0.0-2.0); EOSINOPHILS % (AUTO) 4.3 % (0.0-3.0); LYMPHOCYTES % (AUTO) 15.9 % (20.0-45.0); MEAN CORPUSCULAR HEMOGLOBIN 23.6 PG (27.0-31.0); MEAN CORPUSCULAR HGB CONC 29.9 G/DL (32.0-36.0); MEAN CORPUSCULAR VOLUME 79 FL (80-99); MEAN PLATELET VOLUME 7.3 FL (6.5-10.1); MONOCYTES % (AUTO) 10.5 % (1.0-10.0); NEUTROPHILS % (AUTO) 67.5 % (45.0-75.0); PLATELET COUNT 175 K/UL (150-450); RED BLOOD COUNT 4.03 M/UL (4.20-5.40); RED CELL DISTRIBUTION WIDTH 17.5 % (11.6-14.8); WHITE BLOOD COUNT 4.9 K/UL (4.8-10.8)
[2016-12-20 11:04] LABS: ALANINE AMINOTRANSFERASE 6 U/L (3-33); ANION GAP 16 (5-15); ASPARTATE AMINO TRANSFERASE 14 U/L (5-40); CARBON DIOXIDE 20 mEQ/L (20-30); CHLORIDE 103 mEQ/L (98-107); CREATININE 2.4 mg/dL (0.5-0.9); CRP QUANT 0.3 mg/dL (< 0.5); HEMOLYSIS 4; MAGNESIUM 1.4 mg/dL (1.7-2.5); PHOSPHORUS 3.2 mg/dL (2.5-4.8); POTASSIUM 4.4 mEQ/L (3.4-4.9); SODIUM 139 mEQ/L (135-145); TOTAL PROTEIN 6.1 g/dL (6.6-8.7); URIC ACID 8.2 mg/dL (3.0-7.5)
[2016-12-20 11:23] VITALS: BP 127/69
[2016-12-20] MEDS ORDERED: NS 275ml ONE (12:34)
--- NOTE | 2016-12-20 23:00 | Pulmonology Progress Note ---
Assessment/Plan Problems: (1) Sepsis (2) ATN (acute tubular necrosis) (3) UTI (urinary tract infection) Assessment/Plan pt was sent back to hospital from alf for uncontrolled bp, bp is better now check cultures check electrolytes tolerating well dc home today Subjective ROS Limited/Unobtainable: No Constitutional: Reports: no symptoms HEENT: Repors: no symptoms Allergies: Coded Allergies: IODINE (Verified Allergy, Intermediate, Rash, 12/16/16) ALLOPURINOL (Verified Adverse Reaction, Intermediate, rash, 12/16/16) Objective Last 24 Hour Vital Signs Date Time Temp Pulse Resp B/P Pulse Ox O2 Delivery O2 Flow Rate FiO2 12/20/16 11:23 97.7 73 20 127/69 97 Room Air 12/20/16 08:39 77 151/71 12/20/16 08:39 151/71 12/20/16 08:15 97.6 77 18 151/71 98 Room Air 12/20/16 08:00 75 12/20/16 06:30 157/75 12/20/16 06:02 170/77 12/20/16 04:52 186/88 12/20/16 04:30 99.0 64 20 186/88 97 Room Air 12/20/16 04:00 70 12/20/16 00:00 99.0 64 20 158/86 96 Room Air 12/20/16 00:00 71 12/19/16 23:08 174/83 Intake and Output 12/19/16 12/20/16 19:00 07:00 Intake Total 640 ml 240 ml Output Total 650 ml Balance -10 ml 240 ml Intake Oral 640 ml 240 ml Output Urine Total 650 ml # Voids 1 Objective General Appearance: WD/WN Lines, tubes and drains: peripheral HEENT: normocephalic, atraumatic Neck: non-tender, normal alignment Respiratory/Chest: chest wall non-tender, lungs clear Cardiovascular/Chest: normal peripheral pulses, regular rhythm Abdomen: normal bowel sounds, non tender Genitourinary/Rectal: normal genital exam, normal rectal exam Extremities: normal range of motion, non-tender Laboratory Tests 12/20/16 09:00: White Blood Count 4.9, Red Blood Count 4.03L, Hemoglobin 9.5L, Hematocrit 31.9L , Mean Corpuscular Volume 79L, Mean Corpuscular Hemoglobin 23.6L, Mean Corpuscular Hemoglobin Concent 29.9L, Red Cell Distribution Width 17.5H, Platelet Count 175, Mean Platelet Volume 7.3, Neutrophils (%) (Auto) 67.5, Lymphocytes (%) (Auto) 15.9L, Monocytes (%) (Auto) 10.5H, Eosinophils (%) (Auto ) 4.3H, Basophils (%) (Auto) 1.8, Sodium Level 139, Potassium Level 4.4, Chloride Level 103, Carbon Dioxide Level 20, Anion Gap 16H, Blood Urea Nitrogen 25H, Creatinine 2.4H, Estimat Glomerular Filtration Rate , Glucose Level 151H, Uric Acid 8.2H, Calcium Level 10.0, Phosphorus Level 3.2, Magnesium Level 1.4L, Total Bilirubin 0.3, Aspartate Amino Transf (AST/SGOT) 14, Alanine Aminotransferase (ALT/SGPT) 6, Alkaline Phosphatase 56, C-Reactive Protein, Quantitative 0.3, Pro-B-Type Natriuretic Peptide 933H, Total Protein 6.1L, Albumin 3.1L, Globulin 3.0, Albumin/Globulin Ratio 1.0 CHARLOTTE MARTINES Dec 20, 2016 23:00
--- NOTE | 2016-12-21 19:07 | Discharge Summary ---
Discharge Summary Hospital Course Date of Admission Dec 11, 2016 at 15:09 Date of Discharge Dec 20, 2016 at 12:35 Admitting Diagnosis pyelonephritis HPI Darell Helm is a 71 year old female who was admitted on Dec 11, 2016 at 15:09 for Pyelonephritis Hospital Course [id number] Discharge Discharge Disposition Patient was discharged to snf Discharge Diagnoses: Yeni Tellez NP Dec 21, 2016 19:07
--- NOTE | 2016-12-22 05:08 | Discharge Summary 2 SIG ---
DATE OF ADMISSION: 12/11/2016 DATE OF DISCHARGE: 12/20/2016 CONSULTANTS: 1. Jose Rafael Cody M.D. 2. Demario Rdz M.D. 3. Rosalino Rodriguez M.D. BRIEF HOSPITAL COURSE: The patient is a 71-year-old female with history of diabetes mellitus and CVA, was brought in by paramedics after complaints of generalized weakness. On evaluation at ED, workup showed urinary tract infection with acute tubular necrosis and sepsis. Dr. Rodriguez was consulted and was started on IV cefepime. Urine culture showed growth of Enterobacter. The patient was given IV hydration. Renal ultrasound showed no hydronephrosis with normal kidney echogenicity. Acute renal failure secondary to prerenal. Diuretics were discontinued. Cardiology service was consulted. The patient underwent echocardiogram that showed thickening of the mitral valve. She underwent transesophageal echocardiogram, no vegetations were noted. Repeat blood culture did not isolate any growth. She was taken off antibiotic treatment and was eventually discharged to [facility]. FINAL DIAGNOSES: 1. Sepsis. 2. Acute tubular necrosis. 3. Urinary tract infection. 4. Coagulase-negative Staphylococcus bacteremia. 5. Hypertension. 6. Diabetes mellitus. 7. Old cerebrovascular accident. 8. Mitral anterior valve vegetation from transthoracic echocardiogram, negative vegetations per transesophageal echocardiogram. 9. Anemia. 10. Electrolyte imbalance. Jeyson Peralta M.D. I have been assigned to dictate discharge summary on this account and I was not involved in the patient's management. Yeni Tellez N.P. DR: DEEP JOB#: [id number] CC:
[2016-12-23] MEDS ORDERED: Vitamin D 50,000 units cap ORAL SCH (09:00)
== END 2016-12-20 12:35 | DRG 871 ==
LOC: EDBD 12:15 → EMR 13:28 → 4W 15:09 → EDBD 15:09 → EDBEDREQ 16:15 → 2E 12-18 15:53 → UNDODISIN 12-19 20:10 → 2E 12-19 22:42
PROC: B246ZZ4 Ultrasonography of Right and Left Heart, Transesophageal (ICD-10-PCS; principal; 2016-12-11)
DX: A41.9 Sepsis, unspecified organism (principal); N17.0 Acute kidney failure with tubular necrosis; I69.351 Hemiplegia and hemiparesis following cerebral infarction affecting right dominant side; N39.0 Urinary tract infection, site not specified; D64.9 Anemia, unspecified; Z88.8 Allergy status to other drugs, medicaments and biological substances; R53.1 Weakness; B96.89 Other specified bacterial agents as the cause of diseases classified elsewhere; B95.7 Other staphylococcus as the cause of diseases classified elsewhere; E83.52 Hypercalcemia; E78.00 Pure hypercholesterolemia, unspecified; I12.9 Hypertensive chronic kidney disease with stage 1 through stage 4 chronic kidney disease, or unspecified chronic kidney disease; E11.22 Type 2 diabetes mellitus with diabetic chronic kidney disease; N18.9 Chronic kidney disease, unspecified; Z23 Encounter for immunization
CPT/HCPCS: 36415; 71010; 76775; 80048; 80053; 80061; 80202; 81001; 81003; 82436; 82533; 82550; 82553; 82607; 82728; 82746; 82962; 82977; 83036; 83540; 83550; 83605; 83735; 83880; 83930; 83935; 84100; 84133; 84300; 84439; 84443; 84481; 84484; 84550; 85007; 85025; 85651; 86140; 86710; 87040; 87081; 87086; 87181; 89050; 90732; 93005; 93306; 93312; 94003; 94150; 94664; J1815; J2430; J3490; J7620

== ENCOUNTER 2017-02-01 20:47 | Inpatient (IN) | payer MEDICARE, MEDICAID ==
[~2017-02-01] VITALS: Ht 153 cm; Wt 80.7 kg
[~2017-02-01 20:47] MED LIST: CELEXA40 MG ORAL; CHILDREN'S ASPI81 MG ORAL; CLONIDINE0.1 MG PO; CRESTOR10 M1 ORAL; DOCUSATE SODIU100 M2 ORAL; HYDRALAZINE HCL25 M2 PO; ISOSORBIDE MONO60 M1 PO; LABETALOL HCL200 MG ORAL; NEXIUM40 MG ORAL; PLAVIX75 MG ORAL; SODIUM BICARBO325 MG PO; TORSEMIDE5 MG ORAL; TRADJENTA5 MG PO; [UNRECOGNIZED DRUG - OTHER] PO; [UNRECOGNIZED DRUG - REMARK]; [UNRECOGNIZED DRUG - REMARK]
[2017-02-02 06:00] VITALS: BP 196/73
[2017-02-02] MEDS ORDERED: PROCRIT10000 UNIT SUBQ (06:56)
[2017-02-02] MEDS ORDERED: ZINC SULFATE220 M1 ORAL (06:56)
[2017-02-02] MEDS ORDERED: ACETAMINOPHEN325 M1 ORAL (06:56)
[2017-02-02] MEDS ORDERED: KAYEXALATE SUSP15 GM PO (06:56)
[2017-02-02] MEDS ORDERED: NORCO 5-325 TA1 EACH ORAL (06:57)
[2017-02-02 08:00] VITALS: BP 126/70
[2017-02-02 08:55] LABS: BASOPHILS % (AUTO) 1.3 % (0.0-2.0); EOSINOPHILS % (AUTO) 0.7 % (0.0-3.0); LYMPHOCYTES % (AUTO) 9.7 % (20.0-45.0); MEAN CORPUSCULAR HEMOGLOBIN 24.3 PG (27.0-31.0); MEAN CORPUSCULAR HGB CONC 29.3 G/DL (32.0-36.0); MEAN CORPUSCULAR VOLUME 83 FL (80-99); MONOCYTES % (AUTO) 6.8 % (1.0-10.0); NEUTROPHILS % (AUTO) 81.5 % (45.0-75.0); PLATELET COUNT 229 K/UL (150-450); RED BLOOD COUNT 4.05 M/UL (4.20-5.40); RED CELL DISTRIBUTION WIDTH 17.3 % (11.6-14.8); WHITE BLOOD COUNT 7.2 K/UL (4.8-10.8)
[2017-02-02] MEDS ORDERED: HydrALAZINE 25mg tab ORAL SCH (09:00)
[2017-02-02 09:20] LABS: ALANINE AMINOTRANSFERASE 5 U/L (3-33); ANION GAP 19 (5-15); ASPARTATE AMINO TRANSFERASE 13 U/L (5-40); CALCIUM 9.7 mg/dL (8.6-10.2); CARBON DIOXIDE 13 mEQ/L (20-30); CHLORIDE 113 mEQ/L (98-107); CREATININE 3.7 mg/dL (0.5-0.9); HEMOLYSIS 4; POTASSIUM 5.8 mEQ/L (3.4-4.9); SODIUM 145 mEQ/L (135-145)
[2017-02-02] MEDS: Torsemide 10mg tab ORAL SCH (10:00)
[2017-02-02] MEDS: Imdur 30mg tab ORAL SCH (10:00)
[2017-02-02] MEDS: Zinc Sulfate 220mg cap ORAL SCH (10:00)
[2017-02-02] MEDS: Aspirin Baby 81mg ORAL SCH (10:00)
[2017-02-02] MEDS: Docusate 100mg cap ORAL SCH ×2 (10:00→18:00)
--- NOTE | 2017-02-02 10:44 | History and Physical ---
History of Present Illness General Date patient seen: February 02, 2017 Reason for Hospitalization: ALOC Present Illness HPI 71 year old female with hx of DM, HTN, CVA, senior living resident was taken to [facility] with CC of [facility]. She was evaluated at [facility] and transferred to [facility] for [facility] evaluation. She is awake now, not following commands. looks comfortable. Allergies: Coded Allergies: IODINE (Verified Allergy, Intermediate, Rash, 12/16/16) ALLOPURINOL (Verified Adverse Reaction, Intermediate, rash, 12/16/16) Medication History Scheduled Aspirin (Children's Aspirin), 81 MG ORAL DAILY, (Reported) Citalopram Hydrobromide (Celexa), 40 MG ORAL DAILY, (Reported) Clonidine HCl (Clonidine HCl), 0.1 MG PO BID, (Reported) Clopidogrel Bisulfate* (Plavix*), Unknown Dose ORAL DAILY, (Reported) Docusate Sodium (Docusate Sodium), 100 MG ORAL BID, (Reported) Epoetin Robbie (Procrit), 10,000 UNIT SUBQ WEEKLY, (Reported) Esomeprazole Magnesium (Nexium), 40 MG ORAL DAILY, (Reported) Hydralazine HCl (Hydralazine HCl), 25 MG PO BID, (Reported) Isosorbide Mononitrate (Isosorbide Mononitrate Er), 60 MG PO DAILY, (Reported) Linagliptin (Tradjenta), 5 MG PO DAILY, (Reported) Rosuvastatin Calcium (Crestor), Unknown Dose ORAL DAILY, (Reported) Sodium Polystyrene Sulfonate (Kayexalate), 30 GM PO DAILY, (Reported) Torsemide (Torsemide), 20 MG ORAL DAILY, (Reported) Zinc Sulfate (Zinc Sulfate*), 220 MG ORAL DAILY, (Reported) Scheduled PRN Acetaminophen* (Acetaminophen 325MG Tablet*), 650 MG ORAL Q4H PRN for Mild Pain/ Temp > 100.5, (Reported) Hydrocodone Bit/Acetaminophen 5-325* (Agency 5-325*), 1 TAB ORAL Q8HR PRN for Severe Pain (Pain Scale 7-10), (Reported) Discontinued Medications Labetalol Hcl* (Normodyne*), 200 MG ORAL TID, (Reported) Discontinued Reason: Pt stopped taking med Paricalcitol (Paricalcitol), 1 MCG PO BID, (Reported) Discontinued Reason: Pt stopped taking med Sodium Bicarbonate (Sodium Bicarbonate), 325 MG PO BID, (Reported) Discontinued Reason: Pt stopped taking med [cholestero pill], (Reported) Discontinued Reason: Pt stopped taking med [diabetic med (pill)], (Reported) Discontinued Reason: Pt stopped taking med Patient History Healthcare decision maker Resuscitation status Full Code Advanced Directive on File Past Medical/Surgical History Past Medical/Surgical History: (1) Cerebrovascular accident (CVA) (2) Diabetes (3) HTN (hypertension) Review of Systems All Other Systems: negative except mentioned in HPI Physical Exam General Appearance: WD/WN Lines, tubes and drains: peripheral, central line HEENT: normocephalic, atraumatic Neck: non-tender, normal alignment Respiratory/Chest: chest wall non-tender, lungs clear Cardiovascular/Chest: normal peripheral pulses, normal rate Abdomen: normal bowel sounds Last 24 Hour Vital Signs Date Time Temp Pulse Resp B/P Pulse Ox O2 Delivery O2 Flow Rate FiO2 02/02/17 08:00 97.3 84 20 126/70 93 Room Air 02/02/17 06:00 98.2 85 20 196/73 96 Room Air Laboratory Tests Test 02/02/17 08:30 White Blood Count 7.2 K/UL (4.8-10.8) Red Blood Count 4.05 M/UL (4.20-5.40) L Hemoglobin 9.8 G/DL (12.0-16.0) L Hematocrit 33.5 % (37.0-47.0) L Mean Corpuscular Volume 83 FL (80-99) Mean Corpuscular Hemoglobin 24.3 PG (27.0-31.0) L Mean Corpuscular Hemoglobin Concent 29.3 G/DL (32.0-36.0) L Red Cell Distribution Width 17.3 % (11.6-14.8) H Platelet Count 229 K/UL (150-450) Mean Platelet Volume 7.0 FL (6.5-10.1) Neutrophils (%) (Auto) 81.5 % (45.0-75.0) H Lymphocytes (%) (Auto) 9.7 % (20.0-45.0) L Monocytes (%) (Auto) 6.8 % (1.0-10.0) Eosinophils (%) (Auto) 0.7 % (0.0-3.0) Basophils (%) (Auto) 1.3 % (0.0-2.0) Sodium Level 145 mEQ/L (135-145) Potassium Level 5.8 mEQ/L (3.4-4.9) H Chloride Level 113 mEQ/L (98-107) H Carbon Dioxide Level 13 mEQ/L (20-30) L Anion Gap 19 (5-15) H Blood Urea Nitrogen 53 mg/dL (7-23) H Creatinine 3.7 mg/dL (0.5-0.9) H Estimat Glomerular Filtration Rate mL/min (>60) Glucose Level 116 mg/dL (74-106) H Calcium Level 9.7 mg/dL (8.6-10.2) Total Bilirubin < 0.2 mg/dL (0.0-1.2) Aspartate Amino Transf (AST/SGOT) 13 U/L (5-40) Alanine Aminotransferase (ALT/SGPT) 5 U/L (3-33) Alkaline Phosphatase 59 U/L (35-104) Total Protein 7.0 g/dL (6.6-8.7) Albumin 3.5 g/dL (3.5-5.2) Globulin 3.5 g/dL Albumin/Globulin Ratio 1.0 (1.0-2.7) Height (Feet): 5 Height (Inches): 0.25 Weight (Pounds): 178 Medications Current Medications Medications (Trade) Dose Ordered Sig/Letty Route PRN Reason Start Time Stop Time Status Last Admin Dose Admin Acetaminophen (Tylenol) 650 mg Q4H PRN ORAL Mild Pain/Temp > 100.5 02/02/17 07:15 03/04/17 07:14 Acetaminophen/ Hydrocodone Bitart (Agency 5/325) 1 tab Q8H PRN ORAL Severe Pain (Pain Scale 7-10) 02/02/17 07:15 02/09/17 07:14 Aspirin (ASA) 81 mg DAILY ORAL 02/02/17 09:00 03/04/17 08:59 Atorvastatin Calcium (Lipitor) 10 mg QHS ORAL 02/02/17 21:00 03/04/17 20:59 Clonidine HCl 0.1 mg 0.1 mg Q4H PRN ORAL SBP > 160 02/02/17 07:30 03/04/17 07:29 Clopidogrel Bisulfate (Plavix) 75 mg DAILY ORAL 02/02/17 09:00 03/04/17 08:59 Docusate Sodium (Colace) 100 mg BID ORAL 02/02/17 09:00 03/04/17 08:59 Epoetin Robbie (Procrit (for ESRD on dialysis)) 10,000 units Mo SUBQ 02/03/17 21:00 03/05/17 20:59 Heparin Sodium (Porcine) (Heparin 5000 units/ml) 5,000 units EVERY 12 HOURS SUBQ 02/02/17 09:00 03/04/17 08:59 Hydralazine HCl (Apresoline) 25 mg BID ORAL 02/02/17 09:00 03/04/17 08:59 Isosorbide Mononitrate (Imdur) 60 mg DAILY ORAL 02/02/17 09:00 03/04/17 08:59 Levofloxacin 100 ml @ 100 mls/hr ONCE ONCE IVPB 02/02/17 10:00 02/02/17 10:59 Levofloxacin (Levaquin) 50 ml @ 50 mls/hr Q48H IVPB 02/04/17 10:00 02/11/17 09:59 Morphine Sulfate (Morphine Sulfate) 2 mg Q4H PRN IM SeverePain Unrelieved by Jenn 02/02/17 07:30 02/09/17 07:29 Non-Formulary Medication (Non-Formulary Med) 1 ea DAILY ORAL 02/02/17 09:00 03/04/17 08:59 UNV Non-Formulary Medication (Non-Formulary Med) 1 ea DAILY ORAL 02/02/17 09:00 03/04/17 08:59 UNV Pantoprazole (Protonix) 40 mg DAILY ORAL 02/02/17 09:00 03/04/17 08:59 Sodium Polystyrene Sulfonate (Kayexalate) 30 gm DAILY ORAL 02/02/17 09:00 03/04/17 08:59 UNV Temazepam (Restoril) 15 mg HSPRN PRN ORAL Insomnia 02/02/17 07:30 02/09/17 07:29 Torsemide (Demadex) 20 mg DAILY ORAL 02/02/17 09:00 03/04/17 08:59 Zinc Sulfate (Zinc Sulfate) 220 mg DAILY ORAL 02/02/17 09:00 03/04/17 08:59 Assessment/Plan Problem List: (1) Acute encephalopathy ICD Codes: G93.40 - Encephalopathy, unspecified SNOMED: 7188893 (2) ATN (acute tubular necrosis) ICD Codes: N17.0 - Acute kidney failure with tubular necrosis SNOMED: 84655711 (3) HTN (hypertension) ICD Codes: I10 - Essential (primary) hypertension SNOMED: 46978914 (4) Diabetes ICD Codes: E11.9 - Type 2 diabetes mellitus without complications SNOMED: 23773170 (5) Cerebrovascular accident (CVA) ICD Codes: I63.9 - Cerebral infarction, unspecified SNOMED: 570144378 Assessment/Plan Neuro evaluation pt/ot f/u renal parameters bp control renal evaluation CHARLOTTE MARTINES February 02, 2017 10:44
[2017-02-02] MEDS ORDERED: Enalaprilat 2.5mg/2ml Inj IV PRN (10:45)
[2017-02-02] MEDS: Heparin 5000 units/ml inj SUBQ SCH ×2 (10:53→20:13)
[2017-02-02] MEDS: Sodium Polystyrene Sulfonate 15gm Powder ORAL SCH (11:00)
[2017-02-02 12:00] VITALS: BP 194/100
[2017-02-02] MEDS: Morphine Sulfate 2mg/ml Inj IM PRN (14:01)
--- NOTE | 2017-02-02 14:30 | Consultation ---
Consult Note Consult Note Cardiology for Dr. Cody Full consult dictated # [id number] SURI FLORES February 02, 2017 14:29
[2017-02-02] MEDS: Labetalol 200mg tab ORAL SCH ×2 (15:00→23:15)
--- NOTE | 2017-02-02 15:27 | Consultation ---
Consult Note Consult Note Renal consult dictated # [id number] TINO TORRES February 02, 2017 15:27
[2017-02-02] MEDS ORDERED: Sodium Polystyrene Sulfonate 15gm Powder ORAL ONE (15:30)
[2017-02-02 16:00] VITALS: BP 186/97
[2017-02-02] MEDS ORDERED: Sodium Polystyrene Sulfonate 15gm Powder NG ONE (19:15)
[2017-02-02 20:10] VITALS: BP 179/102
--- NOTE | 2017-02-02 21:38 | Consultation ---
DATE OF CONSULTATION: 02/02/2017 CARDIOLOGY CONSULT: Done as coverage for Dr. Cody. REASON FOR CONSULT: Uncontrolled hypertension. HISTORY OF PRESENT ILLNESS: History is obtained from the patient's chart as the patient has altered mental status and is unable to give any history. The patient is a 71-year-old woman with a history of diabetes, hypertension, and previous CVA who was [facility] then to [facility] for insurance reasons, with altered mental status. She is currently moaning and not responding to questions. Her blood pressure in the emergency room was recorded at 196/73 and pulse 85. She was admitted with diagnoses of encephalopathy and also acute renal failure as her BUN was 53 and creatinine 3.7. She was also hypokalemic with a potassium of 5.8. Old records are not currently available. On telemetry, currently she is in sinus rhythm, but blood pressure is significantly increased at 194/100. Cardiology evaluation was requested. MEDICATIONS: Currently, Levaquin IV q.48 h., Epogen 10,000 units subcutaneously on Saturday, atorvastatin 10 mg at bedtime, Kayexalate 30 g daily, hydralazine 20 mg IV q.4 h. as needed, Vasotec 2.5 mg IV q.4 h. as needed, aspirin 81 mg daily, Plavix 75 mg daily, Colace 100 mg twice a day, hydralazine 25 mg by mouth twice a day, torsemide 20 mg by mouth daily, zinc sulfate 220 mg daily, Protonix 40 mg daily, Imdur 60 mg daily, subcutaneous heparin 5000 units q.12 h., and Restoril at bedtime as needed 15 mg. ALLERGIES: Allopurinol and iodine. PAST MEDICAL HISTORY: As noted above. SOCIAL HISTORY: Not obtainable from the patient or chart. REVIEW OF SYSTEMS: Not obtainable from the patient or chart. PHYSICAL EXAMINATION: VITAL SIGNS: Blood pressure 194/100, pulse 85, regular, respirations 20, and afebrile. GENERAL: Obese, elderly-appearing female who is moaning, not responsive to questions, in mild distress. HEENT: Normocephalic and atraumatic. Pupils are equal, round, and reactive to light. Oral mucosa is moist. NECK: Supple. There is no jugular venous distention. LUNGS: Clear to auscultation bilaterally (poor cooperation with deep inspiratory effort). HEART: Regular rate and rhythm. S1, S2. No murmurs or S3. ABDOMEN: Obese, soft, and nontender. No palpable mass. EXTREMITIES: 1+ pedal and ankle edema bilaterally. SKIN: No rashes or lesions. LABORATORY DATA: Hemoglobin 9.8, hematocrit 33, white blood count 7200, and platelets 229,000. Sodium 145, potassium 5.8, BUN 53, creatinine 3.7, carbon dioxide 13, and chloride 113. Liver function tests are normal. EKG is pending. Troponin is pending. Chest x-ray is pending. Results of previous echo from 12/13/2016 are available. By report, echo shows an EF of 70 to 75%, mild left ventricular hypertrophy, and no significant valve lesions. A head CT showed no acute hemorrhage or mass effect. ASSESSMENT AND RECOMMENDATIONS: The patient is a 71-year-old woman with a history of diabetes, hypertension, previous cerebrovascular accident, and uncertain baseline mental status who was admitted with altered mental status and severe uncontrolled hypertension. There is a concern for possible acute cerebrovascular accident, but no evidence for hemorrhage on admission head CT. She has been treated with hydralazine, but blood pressure remains uncontrolled. I would favor giving labetalol and uptitrating hydralazine as needed to control blood pressure. We will also check EKG and troponin levels to rule out an acute coronary syndrome. Neurology evaluation is also being obtained. Further recommendations will be made based on her clinical course and results of diagnostic testing. Roseanna Chin M.D. DR: TAVO JOB#: [id number] CC:
--- NOTE | 2017-02-02 22:08 | Consultation ---
DATE OF CONSULTATION: 02/02/2017 NEPHROLOGY CONSULTATION: CONSULTING PHYSICIAN: Severiano Benton M.D. ATTENDING PHYSICIAN: Jeyson Peralta M.D. REFERRING PHYSICIAN: Jeyson Peralta M.D. REASON FOR CONSULTATION: Renal failure and hyperkalemia. HISTORY OF PRESENT ILLNESS: This is a 71-year-old female with history of diabetes, hypertension, and CVA, [facility]. The patient apparently was taken to [facility] with change in mental status and then she was transferred to [facility]. The patient is moaning and is unable to provide any history whatsoever. History was obtained from the chart. Dr. Rdz was asked to see this patient in Nephrology consultation and I am covering for him today. The patient's BUN and creatinine are 53 and 3.7 today with potassium 5.8. Also she had significant hypertension with blood pressure of 206/111. PAST MEDICAL HISTORY: Unobtainable except what was mentioned. ALLERGIES: Reported to iodine and allopurinol. MEDICATIONS: Reviewed in the EMR. SOCIAL HISTORY: Unobtainable. REVIEW OF SYSTEMS: Unobtainable. PHYSICAL EXAMINATION: GENERAL: The patient is an elderly female. She is moaning. VITAL SIGNS: Blood pressure is 206/111, pulse 85, temperature 98.1 degrees, and respiratory rate 20. HEENT: Pale conjunctivae. Anicteric sclerae. NECK: Stiff positional. LUNGS: Clear to auscultation. HEART: S1 and S2 without murmurs or rubs. ABDOMEN: Soft and nontender. EXTREMITIES: No cyanosis or edema. The patient has contractures. LABORATORY FINDINGS: CBC shows WBC of 7.2, hematocrit 33.5, hemoglobin 9.8, and platelets 229,000. Chemistry panel shows serum sodium 145, potassium 5.8, chloride 113, CO2 13, BUN 53, and creatinine 3.7. ASSESSMENT: This is a 71-year-old female, who was admitted with change in mental status. She has renal failure, which is advanced. It is unclear what her baseline serum creatinine is. I am assuming that she has some chronic kidney disease. She was getting Epogen as an outpatient, possibility for any of chronic kidney disease. She may have also acute renal failure as a result of prerenal azotemia and obstruction etc. PLAN: The patient is to be treated for hyperkalemia. I asked the nurse to put a nasogastric tube. I will order chest x-ray for the patient and meanwhile, I will get urine studies to work up the renal failure, and renal ultrasound to make sure that the patient is not in any obstruction. If the patient does not make any urine, then she would need dialysis. Thank you very much for this consultation. Severiano Benton M.D. DR: Leander JOB#: [id number] CC:
[2017-02-02] MEDS: HydrALAZINE 50mg tab ORAL SCH (22:09)
[2017-02-02] MEDS: Norco 5mg/325mg tab ORAL PRN (23:15)
[2017-02-02 23:44] VITALS: BP 144/109
[2017-02-03] VITALS (7 sets, daily range): BP systolic 120–179; BP diastolic 58–103
[2017-02-03] MEDS: HydrALAZINE 50mg tab ORAL SCH (05:08)
[2017-02-03] MEDS: Morphine Sulfate 2mg/ml Inj IM PRN ×2 (05:09→21:49)
[2017-02-03 07:16] LABS: BASOPHILS % (AUTO) 1.3 % (0.0-2.0); EOSINOPHILS % (AUTO) 0.1 % (0.0-3.0); LYMPHOCYTES % (AUTO) 10.7 % (20.0-45.0); MEAN CORPUSCULAR HEMOGLOBIN 23.7 PG (27.0-31.0); MEAN CORPUSCULAR HGB CONC 28.6 G/DL (32.0-36.0); MEAN CORPUSCULAR VOLUME 83 FL (80-99); MONOCYTES % (AUTO) 8.7 % (1.0-10.0); NEUTROPHILS % (AUTO) 79.1 % (45.0-75.0); PLATELET COUNT 220 K/UL (150-450); RED BLOOD COUNT 4.01 M/UL (4.20-5.40); RED CELL DISTRIBUTION WIDTH 17.5 % (11.6-14.8); WHITE BLOOD COUNT 7.3 K/UL (4.8-10.8)
[2017-02-03 07:36] LABS: INR 1.1 (0.9-1.1); PROTHROMBIN TIME 10.7 SEC (9.30-11.50)
[2017-02-03 07:40] LABS: ANION GAP 21 (5-15); CALCIUM 9.7 mg/dL (8.6-10.2); CARBON DIOXIDE 14 mEQ/L (20-30); CHLORIDE 113 mEQ/L (98-107); CREATININE 3.6 mg/dL (0.5-0.9); HEMOLYSIS 0; POTASSIUM 5.8 mEQ/L (3.4-4.9); SODIUM 148 mEQ/L (135-145)
[2017-02-03 07:46] LABS: ALANINE AMINOTRANSFERASE 5 U/L (3-33); ANION GAP 22 (5-15); ASPARTATE AMINO TRANSFERASE 16 U/L (5-40); CALCIUM 9.8 mg/dL (8.6-10.2); CARBON DIOXIDE 14 mEQ/L (20-30); CHLORIDE 114 mEQ/L (98-107); CREATININE 3.7 mg/dL (0.5-0.9); LACTATE DEHYDROGENASE 163 U/L (135-230); MAGNESIUM 1.4 mg/dL (1.7-2.5); PHOSPHORUS 4.3 mg/dL (2.5-4.8); POTASSIUM 5.9 mEQ/L (3.4-4.9); SODIUM 150 mEQ/L (135-145)
[2017-02-03 08:35] LABS: HEMOLYSIS 1; IRON 83 ug/dL (37-145); TOTAL IRON BINDING CAPACITY 161 ug/dL (250-400)
[2017-02-03] MEDS: Imdur 30mg tab ORAL SCH (08:48)
[2017-02-03] MEDS: Labetalol 200mg tab ORAL SCH (08:49)
[2017-02-03] MEDS: Norco 5mg/325mg tab ORAL PRN (08:50)
[2017-02-03] MEDS: Aspirin Baby 81mg ORAL SCH (08:50)
[2017-02-03] MEDS: Zinc Sulfate 220mg cap ORAL SCH (08:50)
[2017-02-03] MEDS: Docusate 100mg cap ORAL SCH (08:51)
[2017-02-03] MEDS: Heparin 5000 units/ml inj SUBQ SCH ×2 (08:51→21:54)
[2017-02-03] MEDS: Torsemide 10mg tab ORAL SCH (08:59)
[2017-02-03 09:38] LABS: ERYTHROCYTE SEDIMENTATION RATE 56 MM/HR (0-30); PATH BLOOD SMEAR/OMC SENT TO PATHOLOGIST
--- NOTE | 2017-02-03 10:02 | Diagnostic Imaging Report ---
Indication:Elevated Bun and Creatinine. Technique: Grayscale and duplex Doppler imaging of the kidneys performed. Comparison: None Findings: The kidneys are not well imaged on this examination but as visualized the renal cortex does appear echogenic. Both kidneys measure between 9 and 10 cm in length. There is no hydronephrosis. The bladder is not well seen. IVC is also not well seen. There is a small cyst in the right kidney 1.4 cm in size. There may be a cyst in the left kidney but is not well imaged measuring 4.3 CM. Impression: Very limited study showing evidence of medical renal disease. No evidence of obstructive nephropathy. Suggestion of bilateral renal cysts.
--- NOTE | 2017-02-03 10:54 | Pulmonology Progress Note ---
Assessment/Plan Problems: (1) Acute encephalopathy (2) ATN (acute tubular necrosis) (3) HTN (hypertension) (4) Diabetes (5) Cerebrovascular accident (CVA) Assessment/Plan reanl US noted repeat Kayexalte, d50 and insuline renal to follow bp better check mri Subjective ROS Limited/Unobtainable: No Interval Events: mental status better, still high Allergies: Coded Allergies: IODINE (Verified Allergy, Intermediate, Rash, 12/16/16) ALLOPURINOL (Verified Adverse Reaction, Intermediate, rash, 12/16/16) Objective Last 24 Hour Vital Signs Date Time Temp Pulse Resp B/P Pulse Ox O2 Delivery O2 Flow Rate FiO2 02/03/17 10:21 90 131/66 02/03/17 08:56 179/97 02/03/17 08:49 91 179/97 02/03/17 08:48 98.1 91 20 179/97 96 Room Air 02/03/17 08:48 179/97 02/03/17 05:08 160/103 02/03/17 04:00 51 02/03/17 03:47 98.5 92 19 160/103 97 Room Air 02/03/17 00:00 82 02/02/17 23:44 98.8 107 20 144/109 98 Room Air 02/02/17 23:15 97 179/102 02/02/17 22:09 179/102 02/02/17 20:10 97.8 97 19 179/102 97 Room Air 02/02/17 20:00 103 02/02/17 16:00 97.7 100 20 186/97 98 Room Air 02/02/17 15:41 134 02/02/17 15:29 89 02/02/17 14:54 206/111 02/02/17 12:07 194/100 02/02/17 12:00 98.1 85 20 194/100 100 Room Air 02/02/17 11:50 82 Intake and Output 02/02/17 02/03/17 19:00 07:00 Output Total 500 ml 600 ml Balance -500 ml -600 ml Output Urine Total 500 ml 600 ml General Appearance: WD/WN HEENT: normocephalic, atraumatic Respiratory/Chest: chest wall non-tender, lungs clear, normal breath sounds Cardiovascular: normal peripheral pulses, normal rate Abdomen: normal bowel sounds, soft, non tender, no organomegaly Extremities: no cyanosis Skin: no rash 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, no motor/sensory deficits Lymphatic: no neck adenopathy Laboratory Tests 02/03/17 04:30: White Blood Count 7.3, Red Blood Count 4.01L, Hemoglobin 9.5L, Hematocrit 33.3L , Mean Corpuscular Volume 83, Mean Corpuscular Hemoglobin 23.7L, Mean Corpuscular Hemoglobin Concent 28.6L, Red Cell Distribution Width 17.5H, Platelet Count 220, Mean Platelet Volume 7.0, Neutrophils (%) (Auto) 79.1H, Lymphocytes (%) (Auto) 10.7L, Monocytes (%) (Auto) 8.7, Eosinophils (%) (Auto) 0.1, Basophils (%) (Auto) 1.3, Neutrophils % (Manual) [Pending], Lymphocytes % ( Manual) [Pending], Platelet Estimate [Pending], Platelet Morphology [Pending], Erythrocyte Sedimentation Rate 56H, Reticulocyte Count [Pending], Prothrombin Time 10.7, Prothromb Time International Ratio 1.1, Activated Partial Thromboplast Time 28, Sodium Level 148H, Potassium Level 5.8H, Chloride Level 113H, Carbon Dioxide Level 14L, Anion Gap 21H, Blood Urea Nitrogen 59H, Creatinine 3.6H, Estimat Glomerular Filtration Rate , Glucose Level 103, Calcium Level 9.7, Phosphorus Level 4.3, Magnesium Level 1.4L, Iron Level 83, Total Iron Binding Capacity 161L, Percent Iron Saturation 52H, Unsaturated Iron Binding 78L, Total Bilirubin < 0.2, Aspartate Amino Transf (AST/SGOT) 16, Alanine Aminotransferase (ALT/SGPT) 5, Alkaline Phosphatase 56, Lactate Dehydrogenase 163, Total Protein 7.0, Albumin 3.6, Globulin 3.4, Albumin/ Globulin Ratio 1.0, Carcinoembryonic Antigen 2.6, Vitamin B12 Level 1457H, Folate [Pending] Current Medications Medications (Trade) Dose Ordered Sig/Letty Route PRN Reason Start Time Stop Time Status Last Admin Dose Admin Acetaminophen (Tylenol) 650 mg Q4H PRN ORAL Mild Pain/Temp > 100.5 02/02/17 07:15 03/04/17 07:14 Acetaminophen/ Hydrocodone Bitart ([place] 5/325) 1 tab Q8H PRN ORAL Severe Pain (Pain Scale 7-10) 02/02/17 07:15 02/09/17 07:14 02/03/17 08:50 Aspirin (ASA) 81 mg DAILY ORAL 02/02/17 09:00 03/04/17 08:59 02/03/17 08:50 Atorvastatin Calcium (Lipitor) 10 mg QHS ORAL 02/02/17 21:00 03/04/17 20:59 02/02/17 20:12 Clonidine HCl 0.1 mg 0.1 mg Q4H PRN ORAL SBP > 160 02/02/17 07:30 03/04/17 07:29 Clopidogrel Bisulfate (Plavix) 75 mg DAILY ORAL 02/02/17 09:00 03/04/17 08:59 02/03/17 08:48 Dextrose (D5W 1000ml) 1,000 ml @ 75 mls/hr [id number] IV 02/03/17 11:00 03/05/17 10:59 Dextrose (Dextrose 50%) 100 ml STAT ONCE IV 02/03/17 11:00 02/03/17 11:01 UNV Docusate Sodium (Colace) 100 mg BID ORAL 02/02/17 09:00 03/04/17 08:59 Enalaprilat (Vasotec) 2.5 mg Q4H PRN IV sbp more than 200 02/02/17 10:45 03/04/17 10:44 02/02/17 10:53 Epoetin Robbie (Procrit (for ESRD on dialysis)) 10,000 units Mo SUBQ 02/03/17 21:00 03/05/17 20:59 Heparin Sodium (Porcine) (Heparin 5000 units/ml) 5,000 units EVERY 12 HOURS SUBQ 02/02/17 09:00 03/04/17 08:59 02/03/17 08:51 Hydralazine HCl (Apresoline) 20 mg Q4H PRN IV sbp more than 160 02/02/17 10:45 03/04/17 10:44 02/03/17 08:56 Hydralazine HCl (Apresoline) 50 mg EVERY 8 HOURS ORAL 02/02/17 22:00 03/04/17 21:59 02/03/17 05:08 Insulin Human Regular (NovoLIN R) 10 units ONCE ONCE IV 02/03/17 11:00 02/03/17 11:01 UNV Isosorbide Mononitrate (Imdur) 60 mg DAILY ORAL 02/02/17 09:00 03/04/17 08:59 02/03/17 08:48 Labetalol HCl (Normodyne) 200 mg Q12HR ORAL 02/02/17 15:00 03/04/17 14:59 02/03/17 08:49 Levofloxacin (Levaquin) 50 ml @ 50 mls/hr Q48H IVPB 02/04/17 10:00 02/11/17 09:59 Metoclopramide HCl 10 mg 10 mg ONCE ONCE IVP 02/03/17 11:00 02/03/17 11:01 Morphine Sulfate (Morphine Sulfate) 2 mg Q4H PRN IM SeverePain Unrelieved by Jenn 02/02/17 07:30 02/09/17 07:29 02/03/17 05:09 Non-Formulary Medication (Non-Formulary Med) 1 ea DAILY ORAL 02/02/17 09:00 03/04/17 08:59 UNV Non-Formulary Medication (Non-Formulary Med) 1 ea DAILY ORAL 02/02/17 09:00 03/04/17 08:59 UNV Pantoprazole (Protonix) 40 mg DAILY ORAL 02/02/17 09:00 03/04/17 08:59 02/03/17 08:50 Sodium Polystyrene Sulfonate (Kayexalate) 30 gm DAILY@1100 ORAL 02/02/17 11:00 03/04/17 10:59 Sodium Polystyrene Sulfonate (Kayexalate) 45 gm ONCE ONCE ORAL 02/03/17 11:00 02/03/17 11:01 UNV Temazepam (Restoril) 15 mg HSPRN PRN ORAL Insomnia 02/02/17 07:30 02/09/17 07:29 Torsemide (Demadex) 20 mg DAILY ORAL 02/02/17 09:00 03/04/17 08:59 02/03/17 08:59 Zinc Sulfate (Zinc Sulfate) 220 mg DAILY ORAL 02/02/17 09:00 03/04/17 08:59 02/03/17 08:50 CHARLOTTE MARTINES February 03, 2017 10:54
[2017-02-03] MEDS ORDERED: Metoclopramide 10mg/2ml Inj IVP ONE (11:00)
--- NOTE | 2017-02-03 11:18 | Neurology Progress Note ---
Interim History Interim History ROS Limited/Unobtainable: No Objective Physical Exam Last Vital Signs Date Time Temp Pulse Resp B/P Pulse Ox O2 Delivery O2 Flow Rate FiO2 02/03/17 10:21 90 131/66 02/03/17 08:48 98.1 20 96 Room Air Laboratory Tests Test 02/03/17 04:30 White Blood Count 7.3 K/UL (4.8-10.8) Red Blood Count 4.01 M/UL (4.20-5.40) L Hemoglobin 9.5 G/DL (12.0-16.0) L Hematocrit 33.3 % (37.0-47.0) L Mean Corpuscular Volume 83 FL (80-99) Mean Corpuscular Hemoglobin 23.7 PG (27.0-31.0) L Mean Corpuscular Hemoglobin Concent 28.6 G/DL (32.0-36.0) L Red Cell Distribution Width 17.5 % (11.6-14.8) H Platelet Count 220 K/UL (150-450) Mean Platelet Volume 7.0 FL (6.5-10.1) Neutrophils (%) (Auto) 79.1 % (45.0-75.0) H Lymphocytes (%) (Auto) 10.7 % (20.0-45.0) L Monocytes (%) (Auto) 8.7 % (1.0-10.0) Eosinophils (%) (Auto) 0.1 % (0.0-3.0) Basophils (%) (Auto) 1.3 % (0.0-2.0) Neutrophils % (Manual) Pending Lymphocytes % (Manual) Pending Platelet Estimate Pending Platelet Morphology Pending Erythrocyte Sedimentation Rate 56 MM/HR (0-30) H Reticulocyte Count Pending Prothrombin Time 10.7 SEC (9.30-11.50) Prothromb Time International Ratio 1.1 (0.9-1.1) Activated Partial Thromboplast Time 28 SEC (23-33) Sodium Level 148 mEQ/L (135-145) H Potassium Level 5.8 mEQ/L (3.4-4.9) H Chloride Level 113 mEQ/L (98-107) H Carbon Dioxide Level 14 mEQ/L (20-30) L Anion Gap 21 (5-15) H Blood Urea Nitrogen 59 mg/dL (7-23) H Creatinine 3.6 mg/dL (0.5-0.9) H Estimat Glomerular Filtration Rate mL/min (>60) Glucose Level 103 mg/dL (74-106) Calcium Level 9.7 mg/dL (8.6-10.2) Phosphorus Level 4.3 mg/dL (2.5-4.8) Magnesium Level 1.4 mg/dL (1.7-2.5) L Iron Level 83 ug/dL (37-145) Total Iron Binding Capacity 161 ug/dL (250-400) L Percent Iron Saturation 52 % (15-50) H Unsaturated Iron Binding 78 ug/dL (112-346) L Total Bilirubin < 0.2 mg/dL (0.0-1.2) Aspartate Amino Transf (AST/SGOT) 16 U/L (5-40) Alanine Aminotransferase (ALT/SGPT) 5 U/L (3-33) Alkaline Phosphatase 56 U/L (35-104) Lactate Dehydrogenase 163 U/L (135-230) Total Protein 7.0 g/dL (6.6-8.7) Albumin 3.6 g/dL (3.5-5.2) Globulin 3.4 g/dL Albumin/Globulin Ratio 1.0 (1.0-2.7) Carcinoembryonic Antigen 2.6 ng/mL Vitamin B12 Level 1457 pg/mL (211-946) H Folate Pending Impression/Recommendations Recommendations #[id number] ABHIJEET GRAHAM February 03, 2017 11:18
[2017-02-03 11:20] LABS: ANISOCYTOSIS 1+; BAND NEUTROPHILS % (MANUAL) 0 % (0-8); BASOPHILS % (MANUAL) 0 % (0-2); EOSINOPHILS % (MANUAL) 0 % (0-3); HYPOCHROMASIA 1+; LYMPHOCYTES % (MANUAL) 14 % (20-45); NEUTROPHILS % (MANUAL) 79 % (45-75); PLATELET ESTIMATE ADEQUATE; PLATELET MORPHOLOGY NORMAL; TOTAL CELLS COUNTED 100
[2017-02-03] MEDS ORDERED: Sodium Polystyrene Sulfonate 15gm Powder NG SCH (11:20)
[2017-02-03] MEDS ORDERED: Torsemide 10mg tab NG SCH (11:20)
[2017-02-03] MEDS: Sodium Polystyrene Sulfonate 15gm Powder ORAL SCH (11:20)
[2017-02-03] MEDS ORDERED: Zinc Sulfate 220mg cap GT SCH (11:20)
[2017-02-03] MEDS ORDERED: Labetalol 200mg tab NG SCH (11:20)
[2017-02-03] MEDS ORDERED: Norco 5mg/325mg tab NG PRN (11:21)
[2017-02-03 11:39] LABS: RETICULOCYTE COUNT 2.2 % (0.0-2.0)
--- NOTE | 2017-02-03 11:50 | Diagnostic Imaging Report ---
Indication: NG tube manipulation Comparison: Earlier the same day Single view of the abdomen obtained Nasogastric tube is been repositioned and the tip is in the stomach in good position. There is no change otherwise. In pression: NG tube in good position
--- NOTE | 2017-02-03 11:51 | Diagnostic Imaging Report ---
Indication: NG tube Comparison: None Single view of the abdomen obtained NG tube is curled within this esophagus. This was subsequently repositioned into the stomach. Impression: Current film shows NG tube curled in the esophagus
--- NOTE | 2017-02-03 11:52 | Diagnostic Imaging Report ---
Indication: NG tube manipulation Comparison: None Single view of the abdomen obtained NG tube remains suboptimal. The tip and proximal port are above the EG junction while more proximal catheter is in the stomach. This was subsequently repositioned. Impression: Suboptimal NG tube position. This was repositioned into a satisfactory position subsequently.
--- NOTE | 2017-02-03 13:00 | General Progress Note ---
Assessment/Plan Status: unchanged Status Narrative K remains high Assessment/Plan status: This is a 71-year-old female, who was admitted with change in mental status. She has renal failure, which is advanced. It is unclear what her baseline serum creatinine is. I am assuming that she has some chronic kidney disease. She was getting Epogen as an outpatient, possibility for any of chronic kidney disease. She may have also acute renal failure as a result of prerenal azotemia and obstruction etc. CKD HyperKalemia Anemia HTN Old CVA Plan: Adjust BP meds- Urine studies slow Hydrate monitor renal parameters avoid nephrotoxics Kayexelate DC Diuretics 2D echo per orders Subjective Constitutional: Reports: malaise, weakness Allergies: Coded Allergies: IODINE (Verified Allergy, Intermediate, Rash, 12/16/16) ALLOPURINOL (Verified Adverse Reaction, Intermediate, rash, 12/16/16) Objective Last 24 Hour Vital Signs Date Time Temp Pulse Resp B/P Pulse Ox O2 Delivery O2 Flow Rate FiO2 02/03/17 11:27 98.2 84 20 126/80 97 Room Air 02/03/17 11:26 91 02/03/17 10:21 90 131/66 02/03/17 08:56 179/97 02/03/17 08:49 91 179/97 02/03/17 08:48 98.1 91 20 179/97 96 Room Air 02/03/17 08:48 179/97 02/03/17 07:45 92 02/03/17 05:08 160/103 02/03/17 04:00 51 02/03/17 03:47 98.5 92 19 160/103 97 Room Air 02/03/17 00:00 82 02/02/17 23:44 98.8 107 20 144/109 98 Room Air 02/02/17 23:15 97 179/102 02/02/17 22:09 179/102 02/02/17 20:10 97.8 97 19 179/102 97 Room Air 02/02/17 20:00 103 02/02/17 16:00 97.7 100 20 186/97 98 Room Air 02/02/17 15:41 134 02/02/17 15:29 89 02/02/17 14:54 206/111 Intake and Output 02/02/17 02/03/17 19:00 07:00 Output Total 500 ml 600 ml Balance -500 ml -600 ml Output Urine Total 500 ml 600 ml Laboratory Tests 02/03/17 04:30: White Blood Count 7.3, Red Blood Count 4.01L, Hemoglobin 9.5L, Hematocrit 33.3L , Mean Corpuscular Volume 83, Mean Corpuscular Hemoglobin 23.7L, Mean Corpuscular Hemoglobin Concent 28.6L, Red Cell Distribution Width 17.5H, Platelet Count 220, Mean Platelet Volume 7.0, Neutrophils (%) (Auto) 79.1H, Lymphocytes (%) (Auto) 10.7L, Monocytes (%) (Auto) 8.7, Eosinophils (%) (Auto) 0.1, Basophils (%) (Auto) 1.3, Differential Total Cells Counted 100, Neutrophils % (Manual) 79H, Lymphocytes % (Manual) 14L, Monocytes % (Manual) 7, Eosinophils % (Manual) 0, Basophils % (Manual) 0, Band Neutrophils 0, Platelet Estimate Adequate, Platelet Morphology Normal, Hypochromasia 1+, Anisocytosis 1+ , Erythrocyte Sedimentation Rate 56H, Reticulocyte Count 2.2H, Prothrombin Time 10.7, Prothromb Time International Ratio 1.1, Activated Partial Thromboplast Time 28, Sodium Level 148H, Potassium Level 5.8H, Chloride Level 113H, Carbon Dioxide Level 14L, Anion Gap 21H, Blood Urea Nitrogen 59H, Creatinine 3.6H, Estimat Glomerular Filtration Rate , Glucose Level 103, Calcium Level 9.7, Phosphorus Level 4.3, Magnesium Level 1.4L, Iron Level 83, Total Iron Binding Capacity 161L, Percent Iron Saturation 52H, Unsaturated Iron Binding 78L, Total Bilirubin < 0.2, Aspartate Amino Transf (AST/SGOT) 16, Alanine Aminotransferase (ALT/SGPT) 5, Alkaline Phosphatase 56, Lactate Dehydrogenase 163, Total Protein 7.0, Albumin 3.6, Globulin 3.4, Albumin/Globulin Ratio 1.0, Carcinoembryonic Antigen 2.6, Vitamin B12 Level 1457H, Folate [Pending] Height (Feet): 5 Height (Inches): 0.25 Weight (Pounds): 178 General Appearance: no apparent distress, lethargic EENT: other - NGT Cardiovascular: tachycardia Respiratory/Chest: decreased breath sounds Abdomen: soft ROD PATE February 03, 2017 13:00
[2017-02-03] MEDS ORDERED: Docusate 100mg/10ml Liq ORAL SCH ×2 (13:30→18:00)
[2017-02-03] MEDS: Labetalol 200mg tab NG SCH ×2 (14:20→21:53)
[2017-02-03] MEDS: HydrALAZINE 50mg tab NG SCH ×2 (14:21→21:50)
--- NOTE | 2017-02-03 14:30 | Cardiology Progress Note ---
Assessment/Plan Problem List: (1) HTN (hypertension) (2) Cerebrovascular accident (CVA) (3) ATN (acute tubular necrosis) (4) Diabetes Status: stable, unchanged Status Narrative Pt w/ AMS - ? CVA ? metabolic encephalopathy HTN - BP control improving. ESRD - ? acute worsening of CKD Hyperkalemia , due to RF Assessment/Plan Continue hydralazine and labetalol Kayexelate for hyperkalemia. Nephrology following. Avoid diuretics, nephrotoxic drugs Neurology evaluating re: AMS, ? new cva Subjective ROS Limited/Unobtainable: Yes Subjective Non verbal. Appears in no respiratory distress Objective Last 24 Hour Vital Signs Date Time Temp Pulse Resp B/P Pulse Ox O2 Delivery O2 Flow Rate FiO2 02/03/17 14:21 127/58 02/03/17 14:20 86 127/58 02/03/17 11:27 98.2 84 20 126/80 97 Room Air 02/03/17 11:26 91 02/03/17 10:21 90 131/66 02/03/17 08:56 179/97 02/03/17 08:49 91 179/97 02/03/17 08:48 98.1 91 20 179/97 96 Room Air 02/03/17 08:48 179/97 02/03/17 07:45 92 02/03/17 05:08 160/103 02/03/17 04:00 51 02/03/17 03:47 98.5 92 19 160/103 97 Room Air 02/03/17 00:00 82 02/02/17 23:44 98.8 107 20 144/109 98 Room Air 02/02/17 23:15 97 179/102 02/02/17 22:09 179/102 02/02/17 20:10 97.8 97 19 179/102 97 Room Air 02/02/17 20:00 103 02/02/17 16:00 97.7 100 20 186/97 98 Room Air 02/02/17 15:41 134 02/02/17 15:29 89 02/02/17 14:54 206/111 General Appearance: WD/WN, no apparent distress, alert EENT: PERRL/EOMI, other - ng tube in place Neck: supple, no JVD Rhythm: NSR Cardiovascular: normal rate, regular rhythm, no gallop/murmur Respiratory/Chest: lungs clear Abdomen: non tender, soft Extremities: no swelling Intake and Output 02/02/17 02/03/17 19:00 07:00 Output Total 500 ml 600 ml Balance -500 ml -600 ml Output Urine Total 500 ml 600 ml Laboratory Tests Test 02/03/17 04:30 White Blood Count 7.3 K/UL (4.8-10.8) Red Blood Count 4.01 M/UL (4.20-5.40) L Hemoglobin 9.5 G/DL (12.0-16.0) L Hematocrit 33.3 % (37.0-47.0) L Mean Corpuscular Volume 83 FL (80-99) Mean Corpuscular Hemoglobin 23.7 PG (27.0-31.0) L Mean Corpuscular Hemoglobin Concent 28.6 G/DL (32.0-36.0) L Red Cell Distribution Width 17.5 % (11.6-14.8) H Platelet Count 220 K/UL (150-450) Mean Platelet Volume 7.0 FL (6.5-10.1) Neutrophils (%) (Auto) 79.1 % (45.0-75.0) H Lymphocytes (%) (Auto) 10.7 % (20.0-45.0) L Monocytes (%) (Auto) 8.7 % (1.0-10.0) Eosinophils (%) (Auto) 0.1 % (0.0-3.0) Basophils (%) (Auto) 1.3 % (0.0-2.0) Differential Total Cells Counted 100 Neutrophils % (Manual) 79 % (45-75) H Lymphocytes % (Manual) 14 % (20-45) L Monocytes % (Manual) 7 % (1-10) Eosinophils % (Manual) 0 % (0-3) Basophils % (Manual) 0 % (0-2) Band Neutrophils 0 % (0-8) Platelet Estimate Adequate Platelet Morphology Normal Hypochromasia 1+ Anisocytosis 1+ Erythrocyte Sedimentation Rate 56 MM/HR (0-30) H Reticulocyte Count 2.2 % (0.0-2.0) H Prothrombin Time 10.7 SEC (9.30-11.50) Prothromb Time International Ratio 1.1 (0.9-1.1) Activated Partial Thromboplast Time 28 SEC (23-33) Sodium Level 148 mEQ/L (135-145) H Potassium Level 5.8 mEQ/L (3.4-4.9) H Chloride Level 113 mEQ/L (98-107) H Carbon Dioxide Level 14 mEQ/L (20-30) L Anion Gap 21 (5-15) H Blood Urea Nitrogen 59 mg/dL (7-23) H Creatinine 3.6 mg/dL (0.5-0.9) H Estimat Glomerular Filtration Rate mL/min (>60) Glucose Level 103 mg/dL (74-106) Calcium Level 9.7 mg/dL (8.6-10.2) Phosphorus Level 4.3 mg/dL (2.5-4.8) Magnesium Level 1.4 mg/dL (1.7-2.5) L Iron Level 83 ug/dL (37-145) Total Iron Binding Capacity 161 ug/dL (250-400) L Percent Iron Saturation 52 % (15-50) H Unsaturated Iron Binding 78 ug/dL (112-346) L Total Bilirubin < 0.2 mg/dL (0.0-1.2) Aspartate Amino Transf (AST/SGOT) 16 U/L (5-40) Alanine Aminotransferase (ALT/SGPT) 5 U/L (3-33) Alkaline Phosphatase 56 U/L (35-104) Lactate Dehydrogenase 163 U/L (135-230) Total Protein 7.0 g/dL (6.6-8.7) Albumin 3.6 g/dL (3.5-5.2) Globulin 3.4 g/dL Albumin/Globulin Ratio 1.0 (1.0-2.7) Carcinoembryonic Antigen 2.6 ng/mL Vitamin B12 Level 1457 pg/mL (211-946) H Folate Pending SURI FLORES February 03, 2017 14:30
[2017-02-03 14:48] LABS: APPEARANCE,URINE SLIGHTLY CLOUDY; KETONES,URINE NEGATIVE (NEGATIVE); LEUKOCYTE ESTERASE ,URINE 3+ (NEGATIVE); NITRITE,URINE NEGATIVE (NEGATIVE); PH,URINE 5 (4.5-8.0); PROTEIN,URINE 4+ (NEGATIVE); UROBILINOGEN,URINE NORMAL MG/DL (0.0-1.0)
[2017-02-03 14:59] LABS: BACTERIA,URINE FEW /HPF; SQUAMOUS EPITHELIAL CELL,UR FEW /LPF (NONE/OCC); WBC,URINE 20-30 /HPF (0 - 2)
[2017-02-03] MEDS ORDERED: Sodium Polystyrene Sulfonate 15gm Powder ORAL ONE (16:00)
[2017-02-03 16:35] LABS: ANION GAP 18 (5-15); CALCIUM 9.5 mg/dL (8.6-10.2); CARBON DIOXIDE 16 mEQ/L (20-30); CHLORIDE 114 mEQ/L (98-107); HEMOLYSIS 7; SODIUM 148 mEQ/L (135-145)
[2017-02-03] MEDS: Docusate 100mg/10ml Liq NG SCH (17:02)
[2017-02-03] MEDS ORDERED: Epogen (for ESRD on dialysis) SUBQ SCH (21:00)
--- NOTE | 2017-02-03 21:28 | Consultation ---
DATE OF CONSULTATION: 02/02/2017 NEUROLOGICAL CONSULTATION REQUESTING PHYSICIAN: Jeyson Peralta M.D. HISTORY OF PRESENT ILLNESS: The patient is a 71-year-old female seen in neurological consultation to evaluate acute stroke, new onset of unresponsiveness, and dilated right pupil. The patient unable to provide with the history. This was obtained from medical records. The patient has multiple stroke risk factors and had several strokes in the past, now resident of nursing facility, brought initially to [facility] emergency room for new onset of unresponsiveness. Stat CT of the brain was obtained. This revealed extensive area of cerebral volume loss, right frontoparietal vertex, left occipital lobe, bilateral basal ganglia, left thalamus, left cerebellar hemisphere suggestive of chronic areas of infarction. There was no evidence of acute intracranial abnormalities. No mass lesions. lesions. Right orbital prosthesis noted as well as left orbital post cataract surgical changes. The patient was transferred to this facility with initial assessment including of laboratory work. CBC study with hemoglobin 9.8, hematocrit 33.5 and sedimentation rate of 56. Coagulation panel was normal. Chemistry panel with normal B12, with elevated potassium 5.8, chloride 113, anion gap of 19, BUN of 53 and creatinine 3.7. Since admission, the patient was placed on IV fluids and antibiotics. Her condition this morning appeared to be improving, became more responsive. PAST MEDICAL HISTORY: The patient has a history of hypertension, renal insufficiency, has a history of diabetes, and hyperlipidemia. MEDICATIONS: Her treatment list at this time this included subcutaneous heparin, Lipitor, aspirin, Prazotec, Epogen, hydralazine, labetalol, metoprolol, Protonix and temazepam. ALLERGIES: Allopurinol and iodine. SOCIAL HISTORY: Resident of nursing facility. FAMILY HISTORY: Unavailable. REVIEW OF SYSTEMS: Unable to obtain due to the patient's status. PHYSICAL EXAMINATION: GENERAL: The patient is well-developed and ill-appearing female, not in acute distress, now lying comfortably in bed. Eyes open. VITAL SIGNS: Blood pressure of 179/97, temperature 98.1 degrees, and heart rate of 90. HEENT: Head, normocephalic. No evidence of trauma. Eyes, ears, and throat are clear except presence of right eye prosthesis. Peripheral pulses 1+ symmetric. MENTAL STATUS: The patient is alert, has eye contact and follows a few simple commands. Nonverbal, moan, grown. CRANIAL NERVE II: On the left 3 mm, responding to light and accommodation. Extraocular movement intact. CRANIAL NERVE V: Normal corneal responses. CRANIAL NERVE VII: Slight droop right nasolabial fold. CRANIAL NERVE VIII: Grossly normal hearing. CRANIAL NERVE IX THROUGH XII: Tongue is in midline. Reduced gag response. MOTOR EXAMINATION: Spasticity in all extremities, more pronounced on the right. Able to move her both lower extremity, but not against the gravity. Deep tendon reflexes 3+ to her bilateral ankle clonus. There is contracted both upper extremities with flexion both wrist and extended both feet. IMPRESSION: 1. 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 2. Transient obtundation most likely result of underlying metabolic derangement and urinary tract infection. 3. Right eye prosthesis. 4. Hypertension. 5. Insulin-dependent diabetes mellitus. RECOMMENDATION: The patient continue with the current treatment including IV fluids, antibiotics, maintaining tight control of blood pressure and blood sugar. At this time, there is no need for an additional neurological studies. I discussed the patient's status with medical staff. Thank you for allowing me to see this interesting patient in neurological consultation. Aguilar Villagran M.D. DR: OTF JOB#: [id number] CC:
[2017-02-04] VITALS: BP 106/59
[2017-02-04 04:00] VITALS: BP 119/57
[2017-02-04] MEDS: HydrALAZINE 50mg tab NG SCH (05:35)
[2017-02-04] MEDS: Labetalol 200mg tab NG SCH ×3 (05:35→22:10)
[2017-02-04 07:23] LABS: BASOPHILS % (AUTO) 0.8 % (0.0-2.0); EOSINOPHILS % (AUTO) 2.2 % (0.0-3.0); LYMPHOCYTES % (AUTO) 16.4 % (20.0-45.0); MEAN CORPUSCULAR HEMOGLOBIN 23.9 PG (27.0-31.0); MEAN CORPUSCULAR HGB CONC 29.2 G/DL (32.0-36.0); MEAN CORPUSCULAR VOLUME 82 FL (80-99); MEAN PLATELET VOLUME 7.6 FL (6.5-10.1); MONOCYTES % (AUTO) 8.9 % (1.0-10.0); NEUTROPHILS % (AUTO) 71.8 % (45.0-75.0); PLATELET COUNT 171 K/UL (150-450); RED BLOOD COUNT 3.73 M/UL (4.20-5.40); RED CELL DISTRIBUTION WIDTH 17.1 % (11.6-14.8); WHITE BLOOD COUNT 7.8 K/UL (4.8-10.8)
[2017-02-04 08:00] VITALS: BP 123/67
[2017-02-04 08:05] LABS: HEMOGLOBIN A1C 4.9 % (< 6.0)
[2017-02-04 08:22] LABS: ALANINE AMINOTRANSFERASE 6 U/L (3-33); ANION GAP 21 (5-15); ASPARTATE AMINO TRANSFERASE 15 U/L (5-40); CARBON DIOXIDE 17 mEQ/L (20-30); CHLORIDE 114 mEQ/L (98-107); CHOLESTEROL 170 mg/dL (< 200); CHOLESTEROL/HDL RATIO 3.3 (3.3-4.4); CREATININE 4.6 mg/dL (0.5-0.9); CRP QUANT 0.8 mg/dL (< 0.5); HEMOLYSIS 1; LDL CHOLESTEROL (CALC.) 87 mg/dL (60-99); MAGNESIUM 1.4 mg/dL (1.7-2.5); PHOSPHORUS 5.3 mg/dL (2.5-4.8); POTASSIUM 4.3 mEQ/L (3.4-4.9); SODIUM 152 mEQ/L (135-145); TOTAL PROTEIN 6.4 g/dL (6.6-8.7); URIC ACID 12.4 mg/dL (3.0-7.5)
[2017-02-04] MEDS: Citalopram 20mg Tab ORAL SCH (08:36)
[2017-02-04] MEDS: Docusate 100mg/10ml Liq NG SCH ×3 (08:36→18:00)
[2017-02-04] MEDS: Aspirin Baby 81mg NG SCH (08:36)
[2017-02-04] MEDS: Heparin 5000 units/ml inj SUBQ SCH ×2 (08:42→22:12)
[2017-02-04] MEDS: Imdur 30mg tab ORAL SCH (08:51)
[2017-02-04] MEDS ORDERED: Levofloxacin 250mg/D5W 50ml IVPB SCH (10:00)
[2017-02-04] MEDS ORDERED: Sterile Water Irrig 1000ml IRRIG ONE (10:44)
[2017-02-04 12:00] VITALS: BP 147/74
--- NOTE | 2017-02-04 12:02 | General Progress Note ---
Assessment/Plan Status: deteriorating Status Narrative Cr rising Assessment/Plan status: This is a 71-year-old female, who was admitted with change in mental status. She has renal failure, which is advanced. It is unclear what her baseline serum creatinine is. I am assuming that she has some chronic kidney disease. She was getting Epogen as an outpatient, possibility for any of chronic kidney disease. She may have also acute renal failure as a result of prerenal azotemia and obstruction etc. CKD HyperKalemia Anemia HTN Old CVA Plan: Adjust BP meds- Urine studies Hydrate monitor renal parameters avoid nephrotoxics Kayexelate DC Diuretics 2D echo ? per orders Subjective ROS Limited/Unobtainable: No Constitutional: Reports: malaise, weakness Allergies: Coded Allergies: IODINE (Verified Allergy, Intermediate, Rash, 12/16/16) ALLOPURINOL (Verified Adverse Reaction, Intermediate, rash, 12/16/16) Objective Last 24 Hour Vital Signs Date Time Temp Pulse Resp B/P Pulse Ox O2 Delivery O2 Flow Rate FiO2 02/04/17 08:51 125/67 02/04/17 08:00 98.2 78 19 123/67 98 Room Air 02/04/17 07:50 76 02/04/17 05:35 76 119/57 02/04/17 05:35 119/57 02/04/17 04:00 97.5 76 20 119/57 95 Room Air 02/04/17 00:44 83 02/04/17 00:00 97.9 80 22 106/59 99 Room Air 02/03/17 21:53 81 144/78 02/03/17 21:50 144/78 02/03/17 21:04 Room Air 02/03/17 21:00 78 02/03/17 20:00 78 02/03/17 20:00 97.8 81 20 144/78 81 Room Air 02/03/17 15:43 78 02/03/17 15:34 98.1 82 20 120/58 97 Room Air 02/03/17 14:21 127/58 02/03/17 14:20 86 127/58 Intake and Output 02/03/17 02/04/17 19:00 07:00 Intake Total 740 ml Output Total 200 ml 150 ml Balance 540 ml -150 ml Intake Free Water 200 ml IV Total 525 ml Tube Feeding 15 ml Output Urine Total 200 ml 150 ml Laboratory Tests 02/03/17 14:20: Urine Color Pale yellow, Urine Appearance Slightly cloudy, Urine pH 5, Urine Specific [place] 1.020, Urine Protein 4+H, Urine Glucose (UA) 2+H, Urine Ketones Negative, Urine Occult Blood 1+H, Urine Nitrite Negative, Urine Bilirubin Negative, Urine Urobilinogen Normal, Urine Leukocyte Esterase 3+H, Urine RBC 2-4H, Urine WBC 20-30H, Urine Squamous Epithelial Cells Few, Urine Bacteria Few, Urine Random Sodium 71 02/03/17 16:05: Sodium Level 148H, Potassium Level 5.0H, Chloride Level 114H, Carbon Dioxide Level 16L, Anion Gap 18H, Blood Urea Nitrogen 65H, Creatinine 4.0H, Estimat Glomerular Filtration Rate , Glucose Level 69L, Calcium Level 9.5 02/04/17 05:15: Sodium Level 152H, Potassium Level 4.3, Chloride Level 114H, Carbon Dioxide Level 17L, Anion Gap 21H, Blood Urea Nitrogen 66H, Creatinine 4.6H, Estimat Glomerular Filtration Rate , Glucose Level 117H, Calcium Level 9.0, White Blood Count 7.8, Red Blood Count 3.73L, Hemoglobin 8.9L, Hematocrit 30.6L, Mean Corpuscular Volume 82, Mean Corpuscular Hemoglobin 23.9L, Mean Corpuscular Hemoglobin Concent 29.2L, Red Cell Distribution Width 17.1H, Platelet Count 171 , Mean Platelet Volume 7.6, Neutrophils (%) (Auto) 71.8, Lymphocytes (%) (Auto) 16.4L, Monocytes (%) (Auto) 8.9, Eosinophils (%) (Auto) 2.2, Basophils (%) (Auto ) 0.8, Hemoglobin A1c 4.9, Uric Acid 12.4H, Phosphorus Level 5.3H, Magnesium Level 1.4L, Total Bilirubin < 0.2, Gamma Glutamyl Transpeptidase 18, Aspartate Amino Transf (AST/SGOT) 15, Alanine Aminotransferase (ALT/SGPT) 6, Alkaline Phosphatase 55, Total Creatine Kinase 132, C-Reactive Protein, Quantitative 0.8H , Pro-B-Type Natriuretic Peptide 3786H, Total Protein 6.4L, Albumin 3.3L, Globulin 3.1, Albumin/Globulin Ratio 1.0, Triglycerides Level 154H, Cholesterol Level 170, LDL Cholesterol 87, HDL Cholesterol 52, Cholesterol/HDL Ratio 3.3, Thyroid Stimulating Hormone (TSH) 1.170 02/04/17 05:30: Urine Eosinophils None seen Height (Feet): 5 Height (Inches): 0.25 Weight (Pounds): 178 General Appearance: no apparent distress EENT: other - has NGT Cardiovascular: normal rate Respiratory/Chest: decreased breath sounds Abdomen: soft, distended Objective no change ROD PATE February 04, 2017 12:02
--- NOTE | 2017-02-04 12:04 | Cardiology Report ---
APPROVED REPORT EXAM: Two-dimensional and M-mode echocardiogram with Doppler and color Doppler. INDICATION Congestive Heart Failure M-Mode DIMENSIONS Aortic Root2.4 (2.0-3.7cm) Aortic Cusp Exc.1.8 (1.5-2.0cm) Technically difficult study due to poor acoustic windows. M-mode measurements not obtainable due to cardiac structure. Normal left ventricular chamber size, hyperdynamic systolic function and wall motion. Left ventricular ejection fraction estimated to be 70-75 %. Moderate left ventricular hypertrophy. No evidence of pericardial fat or effusion. All other cardiac chamber sizes are within normal limits. Focal aortic valve sclerosis with adequate cusp excursion Moderatly thickened mitral valve leaflets with normal excursion. Mild mitral annulus and aortic root calcification. Pulmonic valve not well visualized. Normal tricuspid valve structure. IVC is normal in size with physiologic collapse. A color flow and spectral Doppler study was performed and revealed: No aortic regurgitation. Peak aortic valve gradient of 51 mm Hg and a mean of 19 mmHg by P/W. Peak LVOT gradient of 55mm Hg and a mean of 19mmHg. Mild mitral regurgitation. Left ventricular diastolic dysfunction grade 1. Trace tricuspid regurgitation. Tricuspid systolic velocities suggests peak right ventricular systolic pressure of 35 mmHg Consistent with mild pulmonary hypertension.
[2017-02-04] MEDS: HydrALAZINE 10mg Tab NG SCH ×2 (14:00→22:10)
--- NOTE | 2017-02-04 14:03 | Pulmonology Progress Note ---
Assessment/Plan Problems: (1) Acute encephalopathy (2) ATN (acute tubular necrosis) (3) HTN (hypertension) (4) Diabetes (5) Cerebrovascular accident (CVA) Assessment/Plan reanl US noted echo noted pending swallow study mental status slightly better avoid nephrotoxic iv fluids hold diuretics renal to follow bp better check mri Subjective ROS Limited/Unobtainable: No Constitutional: Reports: no symptoms HEENT: Repors: no symptoms Respiratory: Reports: no symptoms Cardiovascular: Reports: no symptoms Allergies: Coded Allergies: IODINE (Verified Allergy, Intermediate, Rash, 12/16/16) ALLOPURINOL (Verified Adverse Reaction, Intermediate, rash, 12/16/16) Objective Last 24 Hour Vital Signs Date Time Temp Pulse Resp B/P Pulse Ox O2 Delivery O2 Flow Rate FiO2 02/04/17 12:00 97.0 94 19 147/74 98 Room Air 02/04/17 08:51 125/67 02/04/17 08:00 98.2 78 19 123/67 98 Room Air 02/04/17 07:50 76 02/04/17 05:35 76 119/57 02/04/17 05:35 119/57 02/04/17 04:00 97.5 76 20 119/57 95 Room Air 02/04/17 00:44 83 02/04/17 00:00 97.9 80 22 106/59 99 Room Air 02/03/17 21:53 81 144/78 02/03/17 21:50 144/78 02/03/17 21:04 Room Air 02/03/17 21:00 78 02/03/17 20:00 78 02/03/17 20:00 97.8 81 20 144/78 81 Room Air 02/03/17 15:43 78 02/03/17 15:34 98.1 82 20 120/58 97 Room Air 02/03/17 14:21 127/58 02/03/17 14:20 86 127/58 Intake and Output 02/03/17 02/04/17 19:00 07:00 Intake Total 740 ml Output Total 200 ml 150 ml Balance 540 ml -150 ml Intake Free Water 200 ml IV Total 525 ml Tube Feeding 15 ml Output Urine Total 200 ml 150 ml General Appearance: WD/WN HEENT: atraumatic Respiratory/Chest: chest wall non-tender, lungs clear Breasts: no masses Cardiovascular: normal peripheral pulses, normal rate Abdomen: normal bowel sounds, soft, non tender Neurologic/Psychiatric: reading coach II-XII grossly normal Microbiology Date/Time Source Procedure Growth Status 02/02/17 06:14 Nasal Nares MRSA Culture - Final NO METHICILLIN RESISTANT STAPH AUREUS... Complete 02/03/17 14:20 Urine,Clean Catch Urine Culture - Preliminary NO GROWTH Resulted 02/02/17 06:14 Rectum VRE Culture - Final Enterococcus Faecalis - Vre Complete Laboratory Tests 02/03/17 14:20: Urine Color Pale yellow, Urine Appearance Slightly cloudy, Urine pH 5, Urine Specific [place] 1.020, Urine Protein 4+H, Urine Glucose (UA) 2+H, Urine Ketones Negative, Urine Occult Blood 1+H, Urine Nitrite Negative, Urine Bilirubin Negative, Urine Urobilinogen Normal, Urine Leukocyte Esterase 3+H, Urine RBC 2-4H, Urine WBC 20-30H, Urine Squamous Epithelial Cells Few, Urine Bacteria Few, Urine Random Sodium 71 02/03/17 16:05: Sodium Level 148H, Potassium Level 5.0H, Chloride Level 114H, Carbon Dioxide Level 16L, Anion Gap 18H, Blood Urea Nitrogen 65H, Creatinine 4.0H, Estimat Glomerular Filtration Rate , Glucose Level 69L, Calcium Level 9.5 02/04/17 05:15: Sodium Level 152H, Potassium Level 4.3, Chloride Level 114H, Carbon Dioxide Level 17L, Anion Gap 21H, Blood Urea Nitrogen 66H, Creatinine 4.6H, Estimat Glomerular Filtration Rate , Glucose Level 117H, Calcium Level 9.0, White Blood Count 7.8, Red Blood Count 3.73L, Hemoglobin 8.9L, Hematocrit 30.6L, Mean Corpuscular Volume 82, Mean Corpuscular Hemoglobin 23.9L, Mean Corpuscular Hemoglobin Concent 29.2L, Red Cell Distribution Width 17.1H, Platelet Count 171 , Mean Platelet Volume 7.6, Neutrophils (%) (Auto) 71.8, Lymphocytes (%) (Auto) 16.4L, Monocytes (%) (Auto) 8.9, Eosinophils (%) (Auto) 2.2, Basophils (%) (Auto ) 0.8, Hemoglobin A1c 4.9, Uric Acid 12.4H, Phosphorus Level 5.3H, Magnesium Level 1.4L, Total Bilirubin < 0.2, Gamma Glutamyl Transpeptidase 18, Aspartate Amino Transf (AST/SGOT) 15, Alanine Aminotransferase (ALT/SGPT) 6, Alkaline Phosphatase 55, Total Creatine Kinase 132, C-Reactive Protein, Quantitative 0.8H , Pro-B-Type Natriuretic Peptide 3786H, Total Protein 6.4L, Albumin 3.3L, Globulin 3.1, Albumin/Globulin Ratio 1.0, Triglycerides Level 154H, Cholesterol Level 170, LDL Cholesterol 87, HDL Cholesterol 52, Cholesterol/HDL Ratio 3.3, Thyroid Stimulating Hormone (TSH) 1.170 02/04/17 05:30: Urine Eosinophils None seen Current Medications Medications (Trade) Dose Ordered Sig/Letty Route PRN Reason Start Time Stop Time Status Last Admin Dose Admin Acetaminophen (Tylenol) 650 mg Q4H PRN ORAL Mild Pain/Temp > 100.5 02/02/17 07:15 03/04/17 07:14 Acetaminophen/ Hydrocodone Bitart ([place] 5/325) 1 tab Q8H PRN NG Severe Pain (Pain Scale 7-10) 02/03/17 11:21 02/09/17 07:14 Aspirin (ASA) 81 mg DAILY NG 02/03/17 11:21 03/04/17 08:59 02/04/17 08:36 Atorvastatin Calcium (Lipitor) 10 mg QHS NG 02/03/17 21:00 03/05/17 20:59 02/03/17 21:50 Citalopram Hydrobromide (celeXA) 40 mg DAILY ORAL 02/04/17 09:00 03/06/17 08:59 02/04/17 08:36 Clonidine HCl (Catapres) 0.1 mg Q4H PRN NG SBP > 160 02/03/17 11:21 03/04/17 07:29 Clopidogrel Bisulfate (Plavix) 75 mg DAILY NG 02/03/17 11:21 03/04/17 08:59 02/04/17 08:42 Dextrose (D5W 1000ml) 1,000 ml @ 100 mls/hr Q10H IV 02/04/17 09:45 02/05/17 05:44 02/04/17 10:01 Docusate Sodium (Colace) 100 mg TID NG 02/03/17 18:00 03/05/17 17:59 02/04/17 08:36 Epoetin Robbie (Procrit (for ESRD on dialysis)) 10,000 units Mo@2100 SUBQ 02/04/17 21:00 03/06/17 20:59 Heparin Sodium (Porcine) (Heparin 5000 units/ml) 5,000 units EVERY 12 HOURS SUBQ 02/02/17 09:00 03/04/17 08:59 02/04/17 08:42 Hydralazine HCl 10 mg 10 mg EVERY 8 HOURS NG 02/04/17 14:00 03/06/17 13:59 Isosorbide Mononitrate (Imdur) 60 mg DAILY ORAL 02/02/17 09:00 03/04/17 08:59 02/04/17 08:51 Labetalol HCl (Normodyne) 200 mg Q8HR NG 02/03/17 14:00 03/05/17 13:59 02/04/17 05:35 Levofloxacin (Levaquin) 50 ml @ 50 mls/hr Q48H IVPB 02/04/17 10:00 02/11/17 09:59 02/04/17 09:29 Morphine Sulfate 2 mg 2 mg Q4H PRN IM SeverePain Unrelieved by Jenn 02/02/17 07:30 02/09/17 07:29 02/03/17 21:49 Non-Formulary Medication (Non-Formulary Med) 1 ea DAILY ORAL 02/02/17 09:00 03/04/17 08:59 UNV Pantoprazole (Protonix) 40 mg BID ORAL 02/04/17 18:00 03/06/17 17:59 Temazepam (Restoril) 15 mg HSPRN PRN NG Insomnia 02/03/17 11:20 02/09/17 07:29 02/03/17 21:50 CHARLOTTE MARTINES February 04, 2017 14:03
[2017-02-04 16:00] VITALS: BP 152/78
[2017-02-04 20:00] VITALS: BP 156/87
[2017-02-04] MEDS ORDERED: Epogen (for non ESRD use) SUBQ SCH (21:00)
[2017-02-05] VITALS (9 sets, daily range): BP systolic 138–170; BP diastolic 72–87
[2017-02-05] MEDS: HydrALAZINE 10mg Tab NG SCH ×3 (05:48→22:45)
[2017-02-05] MEDS: Labetalol 200mg tab NG SCH ×3 (05:48→22:00)
[2017-02-05] MEDS ORDERED: sitaGLIPtin 50mg tab ORAL SCH (06:30)
[2017-02-05] MEDS: Citalopram 20mg Tab ORAL SCH (08:25)
[2017-02-05] MEDS: Docusate 100mg/10ml Liq NG SCH ×2 (08:25→13:32)
[2017-02-05] MEDS: Aspirin Baby 81mg NG SCH (08:25)
[2017-02-05] MEDS: Heparin 5000 units/ml inj SUBQ SCH ×2 (08:26→21:45)
[2017-02-05] MEDS: Imdur 30mg tab ORAL SCH (08:30)
[2017-02-05 09:33] LABS: ALANINE AMINOTRANSFERASE 5 U/L (3-33); ANION GAP 19 (5-15); ASPARTATE AMINO TRANSFERASE 12 U/L (5-40); CALCIUM 8.5 mg/dL (8.6-10.2); CARBON DIOXIDE 18 mEQ/L (20-30); CHLORIDE 104 mEQ/L (98-107); CREATININE 4.1 mg/dL (0.5-0.9); HEMOLYSIS 0; PHOSPHORUS 4.6 mg/dL (2.5-4.8); POTASSIUM 3.5 mEQ/L (3.4-4.9); SODIUM 141 mEQ/L (135-145); TOTAL PROTEIN 5.9 g/dL (6.6-8.7); URIC ACID 11.1 mg/dL (3.0-7.5)
[2017-02-05] MEDS ORDERED: Tubing IV Secondary IV ONE (10:25)
[2017-02-05] MEDS ORDERED: NS 275ml ONE (10:25)
[2017-02-05] MEDS ORDERED: Sterile Water Irrig 1000ml IRRIG ONE (10:25)
--- NOTE | 2017-02-05 11:14 | Diagnostic Imaging Report ---
Indication: NG tube Comparison: None Single view of the abdomen obtained NG tube is in the position. The tip is projected over the stomach lumen as well as the proximal port. Impression: NG tube satisfactory in position
--- NOTE | 2017-02-05 13:45 | General Progress Note ---
Assessment/Plan Status: stable Status Narrative Cr lower 3.7-----4.6-----4.1 Assessment/Plan status: This is a 71-year-old female, who was admitted with change in mental status. She has renal failure, which is advanced. It is unclear what her baseline serum creatinine is. I am assuming that she has some chronic kidney disease. She was getting Epogen as an outpatient, possibility for any of chronic kidney disease. She may have also acute renal failure as a result of prerenal azotemia and obstruction etc. CKD HyperKalemia Anemia HTN Old CVA Plan: More D5W Adjust BP meds- Urine studies Hydrate monitor renal parameters avoid nephrotoxics 2D echo ? Left ventricular ejection fraction estimated to be 70-75 %. Moderate left ventricular hypertrophy. per orders Subjective ROS Limited/Unobtainable: No Constitutional: Reports: malaise, weakness Allergies: Coded Allergies: IODINE (Verified Allergy, Intermediate, Rash, 12/16/16) ALLOPURINOL (Verified Adverse Reaction, Intermediate, rash, 12/16/16) Objective Last 24 Hour Vital Signs Date Time Temp Pulse Resp B/P Pulse Ox O2 Delivery O2 Flow Rate FiO2 02/05/17 13:32 148/77 02/05/17 13:32 69 148/77 02/05/17 12:00 97.0 69 18 148/77 100 Room Air 02/05/17 10:00 73 142/74 02/05/17 08:30 164/87 02/05/17 08:00 96.4 72 18 164/87 99 Room Air 02/05/17 05:48 143/72 02/05/17 05:48 74 143/72 02/05/17 04:15 98.5 74 18 143/72 97 Room Air 02/05/17 02:21 76 138/76 02/05/17 00:00 98.2 81 18 163/79 98 Room Air 02/04/17 22:10 156/87 02/04/17 22:10 85 156/87 02/04/17 20:00 98.6 85 20 156/87 98 Room Air 02/04/17 16:00 97.0 89 18 152/78 97 Room Air 02/04/17 15:07 90 02/04/17 14:00 147/74 02/04/17 14:00 94 147/74 Intake and Output 02/04/17 02/05/17 19:00 07:00 Intake Total 1280 ml 1115 ml Output Total 600 ml Balance 1280 ml 515 ml Intake Free Water 200 ml IV Total 900 ml 1100 ml Tube Feeding 180 ml 15 ml Output Urine Total 600 ml Laboratory Tests 02/05/17 04:00: Urine Eosinophils Few seen 02/05/17 09:00: Sodium Level 141, Potassium Level 3.5, Chloride Level 104, Carbon Dioxide Level 18L, Anion Gap 19H, Blood Urea Nitrogen 62H, Creatinine 4.1H, Estimat Glomerular Filtration Rate , Glucose Level 160H, Uric Acid 11.1H, Calcium Level 8.5L, Phosphorus Level 4.6, Total Bilirubin < 0.2, Aspartate Amino Transf (AST/ SGOT) 12, Alanine Aminotransferase (ALT/SGPT) 5, Alkaline Phosphatase 52, Total Protein 5.9L, Albumin 3.0L, Globulin 2.9, Albumin/Globulin Ratio 1.0 Height (Feet): 5 Height (Inches): 0.25 Weight (Pounds): 178 General Appearance: no apparent distress Cardiovascular: normal rate Respiratory/Chest: decreased breath sounds Abdomen: soft Objective no change ROD PATE February 05, 2017 13:45
[2017-02-05] MEDS ORDERED: Norco 5mg/325mg tab NG PRN (15:00)
[2017-02-05] MEDS ORDERED: Morphine Sulfate 2mg/ml Inj IM PRN (15:30)
[2017-02-05] MEDS ORDERED: Docusate 100mg/10ml Liq NG SCH (18:00)
--- NOTE | 2017-02-05 22:29 | Pulmonology Progress Note ---
Assessment/Plan Problems: (1) Acute encephalopathy (2) ATN (acute tubular necrosis) (3) HTN (hypertension) (4) Diabetes (5) Cerebrovascular accident (CVA) Assessment/Plan reanl US noted echo noted pending swallow study mental status slightly better avoid nephrotoxic iv fluids hold diuretics renal to follow bp better check mri Subjective ROS Limited/Unobtainable: Yes Constitutional: Reports: anorexia, fatigue Genitourinary: Reports: dysuria, frequency, hematuria, nocturia, urgency Neurologic: Reports: confusion, weakness Allergies: Coded Allergies: IODINE (Verified Allergy, Intermediate, Rash, 12/16/16) ALLOPURINOL (Verified Adverse Reaction, Intermediate, rash, 12/16/16) Objective Last 24 Hour Vital Signs Date Time Temp Pulse Resp B/P Pulse Ox O2 Delivery O2 Flow Rate FiO2 02/05/17 20:00 97.9 70 18 153/78 98 Room Air 02/05/17 16:44 98.1 68 20 142/76 98 Room Air 02/05/17 13:32 148/77 02/05/17 13:32 69 148/77 02/05/17 12:00 97.0 69 18 148/77 100 Room Air 02/05/17 10:00 73 142/74 02/05/17 08:30 164/87 02/05/17 08:00 96.4 72 18 164/87 99 Room Air 02/05/17 05:48 143/72 02/05/17 05:48 74 143/72 02/05/17 04:15 98.5 74 18 143/72 97 Room Air 02/05/17 02:21 76 138/76 02/05/17 00:00 98.2 81 18 163/79 98 Room Air Intake and Output 02/04/17 02/05/17 19:00 07:00 Intake Total 1280 ml 1115 ml Output Total 600 ml Balance 1280 ml 515 ml Intake Free Water 200 ml IV Total 900 ml 1100 ml Tube Feeding 180 ml 15 ml Output Urine Total 600 ml General Appearance: no acute distress HEENT: normocephalic, atraumatic, PERRL Respiratory/Chest: chest wall non-tender, decreased breath sounds, accessory muscle use Breasts: no masses Cardiovascular: normal peripheral pulses, normal rate, regular rhythm, no JVD Abdomen: normal bowel sounds, soft, non tender, no organomegaly, non distended Genitourinary: normal external genitalia Extremities: no cyanosis Skin: no rash, no lesions Neurologic/Psychiatric: responsive, abnormal CN, disoriented, aphasia Microbiology Date/Time Source Procedure Growth Status 02/03/17 14:20 Urine,Clean Catch Urine Culture - Final NO GROWTH AFTER 48 HOURS Complete Laboratory Tests 02/05/17 04:00: Urine Eosinophils Few seen 02/05/17 09:00: Sodium Level 141, Potassium Level 3.5, Chloride Level 104, Carbon Dioxide Level 18L, Anion Gap 19H, Blood Urea Nitrogen 62H, Creatinine 4.1H, Estimat Glomerular Filtration Rate , Glucose Level 160H, Uric Acid 11.1H, Calcium Level 8.5L, Phosphorus Level 4.6, Total Bilirubin < 0.2, Aspartate Amino Transf (AST/ SGOT) 12, Alanine Aminotransferase (ALT/SGPT) 5, Alkaline Phosphatase 52, Total Protein 5.9L, Albumin 3.0L, Globulin 2.9, Albumin/Globulin Ratio 1.0 Current Medications Medications (Trade) Dose Ordered Sig/Letty Route PRN Reason Start Time Stop Time Status Last Admin Dose Admin Acetaminophen (Tylenol) 650 mg Q4H PRN ORAL Mild Pain/Temp > 100.5 02/05/17 15:15 03/07/17 15:14 Acetaminophen/ Hydrocodone Bitart ([place] 5/325) 1 tab Q8H PRN NG Severe Pain (Pain Scale 7-10) 02/05/17 15:00 02/12/17 14:59 Aspirin (ASA) 81 mg DAILY NG 02/06/17 09:00 03/08/17 08:59 Atorvastatin Calcium (Lipitor) 10 mg QHS NG 02/05/17 21:00 03/07/17 20:59 02/05/17 21:43 Citalopram Hydrobromide (celeXA) 40 mg DAILY GT 02/06/17 09:00 03/08/17 08:59 Clonidine HCl (Catapres) 0.1 mg Q4H PRN NG SBP > 160 02/05/17 15:30 03/07/17 15:29 Clopidogrel Bisulfate (Plavix) 75 mg DAILY NG 02/06/17 09:00 03/08/17 08:59 Dextrose 1,000 ml @ 75 mls/hr [id number] IV 02/05/17 15:00 03/07/17 14:59 02/05/17 14:59 Docusate Sodium (Colace) 100 mg TID NG 02/05/17 18:00 03/07/17 17:59 02/05/17 17:16 Epoetin Robbie (Procrit (for non ESRD use)) 10,000 units Mo@2100 SUBQ 02/11/17 21:00 03/13/17 20:59 Heparin Sodium (Porcine) (Heparin 5000 units/ml) 5,000 units EVERY 12 HOURS SUBQ 02/05/17 21:00 03/07/17 20:59 02/05/17 21:45 Hydralazine HCl (Apresoline) 10 mg EVERY 8 HOURS NG 02/05/17 22:00 03/07/17 21:59 Isosorbide Mononitrate (Imdur) 60 mg DAILY ORAL 02/06/17 09:00 03/08/17 08:59 Labetalol HCl (Normodyne) 200 mg Q8HR NG 02/05/17 22:00 03/07/17 21:59 Lansoprazole (Prevacid) 30 mg BID GT 02/05/17 18:00 03/07/17 17:59 02/05/17 17:16 Levofloxacin (Levaquin) 50 ml @ 50 mls/hr Q48H IVPB 02/06/17 10:00 02/13/17 09:59 Morphine Sulfate (Morphine Sulfate) 2 mg Q4H PRN IM SeverePain Unrelieved by Jenn 02/05/17 15:30 02/12/17 15:29 Sitagliptin Phosphate (Januvia) 25 mg ACBREAKFAST GT 02/06/17 06:30 03/08/17 06:29 Temazepam (Restoril) 15 mg HSPRN PRN NG Insomnia 02/05/17 15:00 02/12/17 14:59 CHARLOTTE MARTINES February 05, 2017 22:29
[2017-02-06] VITALS (7 sets, daily range): BP systolic 135–160; BP diastolic 60–84
[2017-02-06] MEDS: HydrALAZINE 10mg Tab NG SCH (06:02)
[2017-02-06] MEDS: Labetalol 200mg tab NG SCH (06:03)
[2017-02-06] MEDS ORDERED: sitaGLIPtin 50mg tab GT SCH (06:30)
[2017-02-06 06:34] LABS: BASOPHILS % (AUTO) 0.7 % (0.0-2.0); EOSINOPHILS % (AUTO) 3.2 % (0.0-3.0); LYMPHOCYTES % (AUTO) 19.8 % (20.0-45.0); MEAN CORPUSCULAR HEMOGLOBIN 24.3 PG (27.0-31.0); MEAN CORPUSCULAR HGB CONC 30.1 G/DL (32.0-36.0); MEAN CORPUSCULAR VOLUME 81 FL (80-99); MONOCYTES % (AUTO) 9.4 % (1.0-10.0); NEUTROPHILS % (AUTO) 66.9 % (45.0-75.0); PLATELET COUNT 138 K/UL (150-450); RED BLOOD COUNT 3.34 M/UL (4.20-5.40); RED CELL DISTRIBUTION WIDTH 16.4 % (11.6-14.8); WHITE BLOOD COUNT 6.7 K/UL (4.8-10.8)
[2017-02-06 07:04] LABS: ALANINE AMINOTRANSFERASE < 5 U/L (3-33); ANION GAP 18 (5-15); ASPARTATE AMINO TRANSFERASE 12 U/L (5-40); CALCIUM 8.8 mg/dL (8.6-10.2); CARBON DIOXIDE 20 mEQ/L (20-30); CHLORIDE 106 mEQ/L (98-107); CREATININE 3.9 mg/dL (0.5-0.9); CRP QUANT 0.8 mg/dL (< 0.5); HEMOLYSIS 0; MAGNESIUM 1.8 mg/dL (1.7-2.5); PHOSPHORUS 4.8 mg/dL (2.5-4.8); POTASSIUM 3.1 mEQ/L (3.4-4.9); SODIUM 144 mEQ/L (135-145); TOTAL PROTEIN 5.7 g/dL (6.6-8.7); URIC ACID 11.1 mg/dL (3.0-7.5)
[2017-02-06] MEDS ORDERED: sitaGLIPtin 50mg tab ORAL SCH (08:13)
[2017-02-06] MEDS ORDERED: Norco 5mg/325mg tab ORAL PRN (08:13)
[2017-02-06] MEDS ORDERED: KCl 10% 40mEq/30ml liquid NG ONE (08:30)
[2017-02-06] MEDS: Aspirin Baby 81mg ORAL SCH (08:40)
[2017-02-06] MEDS: Docusate 100mg cap ORAL SCH ×3 (08:50→17:34)
[2017-02-06] MEDS: Imdur 30mg tab ORAL SCH (08:50)
[2017-02-06] MEDS: Citalopram 20mg Tab ORAL SCH (08:55)
[2017-02-06] MEDS: Heparin 5000 units/ml inj SUBQ SCH ×2 (08:56→21:00)
--- NOTE | 2017-02-06 11:56 | General Progress Note ---
Assessment/Plan Status: unchanged Status Narrative Cr lowering Assessment/Plan status: This is a 71-year-old female, who was admitted with change in mental status. She has renal failure, which is advanced. It is unclear what her baseline serum creatinine is. I am assuming that she has some chronic kidney disease. She was getting Epogen as an outpatient, possibility for any of chronic kidney disease. She may have also acute renal failure as a result of prerenal azotemia and obstruction etc. CKD HyperKalemia Anemia HTN Old CVA Plan: More D5W Adjust BP meds- Urine studies Hydrate monitor renal parameters avoid nephrotoxics 2D echo ? Left ventricular ejection fraction estimated to be 70-75 %. Moderate left ventricular hypertrophy. per orders Subjective ROS Limited/Unobtainable: No Constitutional: Reports: malaise, weakness Allergies: Coded Allergies: IODINE (Verified Allergy, Intermediate, Rash, 12/16/16) ALLOPURINOL (Verified Adverse Reaction, Intermediate, rash, 12/16/16) Objective Last 24 Hour Vital Signs Date Time Temp Pulse Resp B/P Pulse Ox O2 Delivery O2 Flow Rate FiO2 02/06/17 11:45 97.9 65 16 150/70 98 Room Air 02/06/17 08:50 135/60 02/06/17 08:22 97.5 60 18 135/60 98 Room Air 02/06/17 06:03 77 158/71 02/06/17 06:02 158/71 02/06/17 04:38 162/87 02/06/17 03:57 97.9 69 18 160/83 93 Room Air 02/06/17 00:15 157/84 02/05/17 23:38 98.1 74 18 170/87 97 Room Air 02/05/17 22:45 149/79 02/05/17 22:00 89 149/79 02/05/17 20:00 97.9 70 18 153/78 98 Room Air 02/05/17 16:44 98.1 68 20 142/76 98 Room Air 02/05/17 13:32 148/77 02/05/17 13:32 69 148/77 02/05/17 12:00 97.0 69 18 148/77 100 Room Air Intake and Output 02/05/17 02/06/17 19:00 07:00 Intake Total 545 ml 1162 ml Output Total 300 ml 700 ml Balance 245 ml 462 ml Intake Oral 300 ml IV Total 500 ml 862 ml Tube Feeding 45 ml Output Urine Total 300 ml 700 ml # Voids 1 Laboratory Tests 02/06/17 01:30: Urine Eosinophils None seen 02/06/17 04:50: White Blood Count 6.7, Red Blood Count 3.34L, Hemoglobin 8.1L, Hematocrit 27.0L , Mean Corpuscular Volume 81, Mean Corpuscular Hemoglobin 24.3L, Mean Corpuscular Hemoglobin Concent 30.1L, Red Cell Distribution Width 16.4H, Platelet Count 138L, Mean Platelet Volume 8.0, Neutrophils (%) (Auto) 66.9, Lymphocytes (%) (Auto) 19.8L, Monocytes (%) (Auto) 9.4, Eosinophils (%) (Auto) 3.2H, Basophils (%) (Auto) 0.7, Sodium Level 144, Potassium Level 3.1L, Chloride Level 106, Carbon Dioxide Level 20, Anion Gap 18H, Blood Urea Nitrogen 58H, Creatinine 3.9H, Estimat Glomerular Filtration Rate , Glucose Level 131H, Uric Acid 11.1H, Calcium Level 8.8, Phosphorus Level 4.8, Magnesium Level 1.8, Total Bilirubin 0.2, Aspartate Amino Transf (AST/SGOT) 12, Alanine Aminotransferase (ALT/SGPT) < 5, Alkaline Phosphatase 48, C-Reactive Protein, Quantitative 0.8H, Pro-B-Type Natriuretic Peptide 2747H, Total Protein 5.7L, Albumin 2.9L, Globulin 2.8, Albumin/Globulin Ratio 1.0 Height (Feet): 5 Height (Inches): 0.25 Weight (Pounds): 178 General Appearance: no apparent distress Cardiovascular: normal rate Respiratory/Chest: decreased breath sounds Abdomen: soft Objective no change ROD PATE February 06, 2017 11:56
[2017-02-06] MEDS: HydrALAZINE 25mg tab ORAL SCH ×2 (13:38→21:50)
[2017-02-06] MEDS: Labetalol 200mg tab ORAL SCH ×2 (13:39→21:50)
--- NOTE | 2017-02-06 23:02 | Pulmonology Progress Note ---
Assessment/Plan Problems: (1) Acute encephalopathy (2) ATN (acute tubular necrosis) (3) HTN (hypertension) (4) Diabetes (5) Cerebrovascular accident (CVA) Assessment/Plan reanl US noted echo noted pending swallow study mental status slightly better avoid nephrotoxic iv fluids hold diuretics renal to follow bp better check mri Subjective ROS Limited/Unobtainable: Yes Constitutional: Reports: anorexia, chills, fatigue Neurologic: Reports: confusion, weakness Allergies: Coded Allergies: IODINE (Verified Allergy, Intermediate, Rash, 12/16/16) ALLOPURINOL (Verified Adverse Reaction, Intermediate, rash, 12/16/16) Objective Last 24 Hour Vital Signs Date Time Temp Pulse Resp B/P Pulse Ox O2 Delivery O2 Flow Rate FiO2 02/06/17 21:50 70 135/75 02/06/17 21:50 135/75 02/06/17 19:48 97.5 70 20 135/75 98 Room Air 02/06/17 15:12 97.9 73 21 140/76 99 Room Air 02/06/17 14:37 97.9 02/06/17 13:39 65 150/70 02/06/17 13:38 150/70 02/06/17 11:45 97.9 65 16 150/70 98 Room Air 02/06/17 08:50 135/60 02/06/17 08:22 97.5 60 18 135/60 98 Room Air 02/06/17 06:03 77 158/71 02/06/17 06:02 158/71 02/06/17 04:38 162/87 02/06/17 03:57 97.9 69 18 160/83 93 Room Air 02/06/17 00:15 157/84 02/05/17 23:38 98.1 74 18 170/87 97 Room Air Intake and Output 02/05/17 02/06/17 19:00 07:00 Intake Total 545 ml 1237 ml Output Total 300 ml 700 ml Balance 245 ml 537 ml Intake Oral 300 ml IV Total 500 ml 937 ml Tube Feeding 45 ml Output Urine Total 300 ml 700 ml # Voids 1 General Appearance: no acute distress HEENT: normocephalic, anicteric, PERRL Respiratory/Chest: chest wall non-tender Breasts: no masses Cardiovascular: normal peripheral pulses, normal rate, regular rhythm, no JVD Abdomen: normal bowel sounds, soft, non tender, no organomegaly, non distended Genitourinary: normal external genitalia Extremities: no cyanosis Skin: no rash, no lesions 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, responsive, disoriented Laboratory Tests 02/06/17 01:30: Urine Eosinophils None seen 02/06/17 04:50: White Blood Count 6.7, Red Blood Count 3.34L, Hemoglobin 8.1L, Hematocrit 27.0L , Mean Corpuscular Volume 81, Mean Corpuscular Hemoglobin 24.3L, Mean Corpuscular Hemoglobin Concent 30.1L, Red Cell Distribution Width 16.4H, Platelet Count 138L, Mean Platelet Volume 8.0, Neutrophils (%) (Auto) 66.9, Lymphocytes (%) (Auto) 19.8L, Monocytes (%) (Auto) 9.4, Eosinophils (%) (Auto) 3.2H, Basophils (%) (Auto) 0.7, Sodium Level 144, Potassium Level 3.1L, Chloride Level 106, Carbon Dioxide Level 20, Anion Gap 18H, Blood Urea Nitrogen 58H, Creatinine 3.9H, Estimat Glomerular Filtration Rate , Glucose Level 131H, Uric Acid 11.1H, Calcium Level 8.8, Phosphorus Level 4.8, Magnesium Level 1.8, Total Bilirubin 0.2, Aspartate Amino Transf (AST/SGOT) 12, Alanine Aminotransferase (ALT/SGPT) < 5, Alkaline Phosphatase 48, C-Reactive Protein, Quantitative 0.8H, Pro-B-Type Natriuretic Peptide 2747H, Total Protein 5.7L, Albumin 2.9L, Globulin 2.8, Albumin/Globulin Ratio 1.0 Current Medications Medications (Trade) Dose Ordered Sig/Letty Route PRN Reason Start Time Stop Time Status Last Admin Dose Admin Acetaminophen (Tylenol) 650 mg Q4H PRN ORAL Mild Pain/Temp > 100.5 02/06/17 08:30 03/08/17 08:29 Acetaminophen/ Hydrocodone Bitart ([place] 5/325) 1 tab Q8H PRN ORAL Severe Pain (Pain Scale 7-10) 02/06/17 08:13 02/12/17 14:59 02/06/17 13:38 Aspirin (ASA) 81 mg DAILY ORAL 02/06/17 09:00 03/08/17 08:59 Atorvastatin Calcium (Lipitor) 10 mg QHS ORAL 02/06/17 08:09 03/07/17 20:59 02/06/17 21:50 Citalopram Hydrobromide (celeXA) 40 mg DAILY ORAL 02/06/17 09:00 03/08/17 08:59 02/06/17 08:55 Clonidine HCl (Catapres) 0.1 mg Q4H PRN ORAL SBP > 160 02/06/17 08:12 03/07/17 15:29 Clopidogrel Bisulfate (Plavix) 75 mg DAILY ORAL 02/06/17 09:00 03/08/17 08:59 02/06/17 08:50 Dextrose 1,000 ml @ 75 mls/hr [id number] IV 02/05/17 15:00 03/07/17 14:59 02/06/17 17:35 Docusate Sodium (Colace) 100 mg THREE TIMES A DAY ORAL 02/06/17 09:00 03/08/17 08:59 02/06/17 17:34 Epoetin Robbie (Procrit (for non ESRD use)) 10,000 units Mo@2100 SUBQ 02/11/17 21:00 03/13/17 20:59 Heparin Sodium (Porcine) (Heparin 5000 units/ml) 5,000 units EVERY 12 HOURS SUBQ 02/05/17 21:00 03/07/17 20:59 02/05/17 21:45 Hydralazine HCl (Apresoline) 25 mg Q8HR ORAL 02/06/17 14:00 03/08/17 13:59 02/06/17 21:50 Isosorbide Mononitrate (Imdur) 60 mg DAILY ORAL 02/06/17 09:00 03/08/17 08:59 02/06/17 08:50 Labetalol HCl (Normodyne) 200 mg Q8HR ORAL 02/06/17 08:13 03/07/17 21:59 02/06/17 21:50 Levofloxacin (Levaquin) 50 ml @ 50 mls/hr Q48H IVPB 02/06/17 10:00 02/13/17 09:59 02/06/17 10:45 Morphine Sulfate (Morphine Sulfate) 2 mg Q4H PRN IM SeverePain Unrelieved by Jenn 02/05/17 15:30 02/12/17 15:29 Pantoprazole (Protonix) 40 mg BIAC ORAL 02/06/17 09:00 03/08/17 08:59 02/06/17 17:34 Sitagliptin Phosphate (Januvia) 25 mg ACBREAKFAST ORAL 02/06/17 08:13 03/08/17 06:29 Temazepam (Restoril) 15 mg HSPRN PRN ORAL Insomnia 02/06/17 08:13 02/12/17 14:59 CHARLOTTE MARTINES February 06, 2017 23:02
[2017-02-07 04:00] VITALS: BP 154/72
[2017-02-07] MEDS: Labetalol 200mg tab ORAL SCH ×2 (06:16→13:08)
[2017-02-07] MEDS: HydrALAZINE 25mg tab ORAL SCH ×2 (06:16→13:08)
[2017-02-07 07:59] VITALS: BP 139/71
[2017-02-07] MEDS: Docusate 100mg cap ORAL SCH ×3 (08:33→17:38)
[2017-02-07] MEDS: Imdur 30mg tab ORAL SCH (08:34)
[2017-02-07] MEDS: Citalopram 20mg Tab ORAL SCH (08:34)
[2017-02-07] MEDS: Aspirin Baby 81mg ORAL SCH (08:35)
[2017-02-07] MEDS: Heparin 5000 units/ml inj SUBQ SCH (08:37)
--- NOTE | 2017-02-07 10:52 | General Progress Note ---
Assessment/Plan Status: stable Assessment/Plan status: This is a 71-year-old female, who was admitted with change in mental status. She has renal failure, which is advanced. It is unclear what her baseline serum creatinine is. I am assuming that she has some chronic kidney disease. She was getting Epogen as an outpatient, possibility for any of chronic kidney disease. She may have also acute renal failure as a result of prerenal azotemia and obstruction etc. CKD HyperKalemia Anemia HTN Old CVA Plan: Labs pending More D5W Adjust BP meds- Urine studies Hydrate monitor renal parameters avoid nephrotoxics 2D echo ? Left ventricular ejection fraction estimated to be 70-75 %. Moderate left ventricular hypertrophy. per orders Subjective ROS Limited/Unobtainable: No Constitutional: Reports: malaise Allergies: Coded Allergies: IODINE (Verified Allergy, Intermediate, Rash, 12/16/16) ALLOPURINOL (Verified Adverse Reaction, Intermediate, rash, 12/16/16) Objective Last 24 Hour Vital Signs Date Time Temp Pulse Resp B/P Pulse Ox O2 Delivery O2 Flow Rate FiO2 02/07/17 08:34 139/71 02/07/17 07:59 97.3 65 20 139/71 99 Room Air 02/07/17 06:16 75 154/72 02/07/17 06:16 154/72 02/07/17 04:00 97.9 75 18 154/72 98 Room Air 02/06/17 23:52 97.9 65 15 144/71 97 Room Air 02/06/17 21:50 70 135/75 02/06/17 21:50 135/75 02/06/17 19:48 97.5 70 20 135/75 98 Room Air 02/06/17 15:12 97.9 73 21 140/76 99 Room Air 02/06/17 14:37 97.9 02/06/17 13:39 65 150/70 02/06/17 13:38 150/70 02/06/17 11:45 97.9 65 16 150/70 98 Room Air Intake and Output 02/06/17 02/07/17 19:00 07:00 Intake Total 900 ml 1200 ml Output Total 400 ml 300 ml Balance 500 ml 900 ml IV Total 900 ml 900 ml Blood Product 300 ml Output Urine Total 400 ml 300 ml Laboratory Tests 02/07/17 10:15: Sodium Level [Pending], Potassium Level [Pending], Chloride Level [Pending], Carbon Dioxide Level [Pending], Blood Urea Nitrogen [Pending], Creatinine [ Pending], Estimat Glomerular Filtration Rate [Pending], Glucose Level [Pending] , Uric Acid [Pending], Calcium Level [Pending], Phosphorus Level [Pending], Total Bilirubin [Pending], Aspartate Amino Transf (AST/SGOT) [Pending], Alanine Aminotransferase (ALT/SGPT) [Pending], Alkaline Phosphatase [Pending], Total Protein [Pending], Albumin [Pending], Globulin [Pending] Height (Feet): 5 Height (Inches): 0.25 Weight (Pounds): 178 General Appearance: no apparent distress, lethargic Objective no change ROD PATE February 07, 2017 10:52
[2017-02-07 11:08] LABS: ALANINE AMINOTRANSFERASE 5 U/L (3-33); ALBUMIN/GLOBULIN RATIO 0.9 (1.0-2.7); ANION GAP 16 (5-15); ASPARTATE AMINO TRANSFERASE 12 U/L (5-40); CALCIUM 8.8 mg/dL (8.6-10.2); CARBON DIOXIDE 20 mEQ/L (20-30); CHLORIDE 104 mEQ/L (98-107); CREATININE 3.1 mg/dL (0.5-0.9); HEMOLYSIS 0; POTASSIUM 3.6 mEQ/L (3.4-4.9); SODIUM 140 mEQ/L (135-145); TOTAL PROTEIN 5.9 g/dL (6.6-8.7); URIC ACID 11.2 mg/dL (3.0-7.5)
[2017-02-07 11:40] VITALS: BP 158/79
[2017-02-07 15:49] VITALS: BP 161/83
[2017-02-07] MEDS ORDERED: NS 275ml ONE (20:14)
[2017-02-07] MEDS ORDERED: Tubing Blood Filter IV ONE (20:14)
[2017-02-07 20:30] VITALS: BP 120/72
--- NOTE | 2017-02-07 22:30 | Pulmonology Progress Note ---
Assessment/Plan Problems: (1) Acute encephalopathy (2) ATN (acute tubular necrosis) (3) HTN (hypertension) (4) Diabetes (5) Cerebrovascular accident (CVA) Assessment/Plan reanl US noted echo noted pending swallow study mental status slightly better avoid nephrotoxic iv fluids hold diuretics renal to follow bp better check mri Subjective Allergies: Coded Allergies: IODINE (Verified Allergy, Intermediate, Rash, 12/16/16) ALLOPURINOL (Verified Adverse Reaction, Intermediate, rash, 12/16/16) Objective Last 24 Hour Vital Signs Date Time Temp Pulse Resp B/P Pulse Ox O2 Delivery O2 Flow Rate FiO2 02/07/17 20:30 97.9 69 20 120/72 Room Air 02/07/17 17:38 161/83 02/07/17 15:49 98.4 66 20 161/83 99 Room Air 02/07/17 13:08 61 158/79 02/07/17 13:08 158/79 02/07/17 11:40 98.0 61 20 158/79 98 Room Air 02/07/17 08:34 139/71 02/07/17 07:59 97.3 65 20 139/71 99 Room Air 02/07/17 06:16 75 154/72 02/07/17 06:16 154/72 02/07/17 04:00 97.9 75 18 154/72 98 Room Air 02/06/17 23:52 97.9 65 15 144/71 97 Room Air Intake and Output 02/06/17 02/07/17 19:00 07:00 Intake Total 900 ml 1200 ml Output Total 400 ml 300 ml Balance 500 ml 900 ml IV Total 900 ml 900 ml Blood Product 300 ml Output Urine Total 400 ml 300 ml Laboratory Tests 02/07/17 10:15: Sodium Level 140, Potassium Level 3.6, Chloride Level 104, Carbon Dioxide Level 20, Anion Gap 16H, Blood Urea Nitrogen 50H, Creatinine 3.1H, Estimat Glomerular Filtration Rate , Glucose Level 121H, Uric Acid 11.2H, Calcium Level 8.8, Phosphorus Level 4.0, Total Bilirubin 0.3, Aspartate Amino Transf (AST/SGOT) 12 , Alanine Aminotransferase (ALT/SGPT) 5, Alkaline Phosphatase 47, Total Protein 5.9L, Albumin 2.9L, Globulin 3.0, Albumin/Globulin Ratio 0.9L Current Medications Medications (Trade) Dose Ordered Sig/Letty Route PRN Reason Start Time Stop Time Status Last Admin Dose Admin Acetaminophen (Tylenol) 650 mg Q4H PRN ORAL Mild Pain/Temp > 100.5 02/06/17 08:30 03/08/17 08:29 Acetaminophen/ Hydrocodone Bitart ([place] 5/325) 1 tab Q8H PRN ORAL Severe Pain (Pain Scale 7-10) 02/06/17 08:13 02/12/17 14:59 02/06/17 13:38 Aspirin (ASA) 81 mg DAILY ORAL 02/06/17 09:00 03/08/17 08:59 Atorvastatin Calcium (Lipitor) 10 mg QHS ORAL 02/06/17 08:09 03/07/17 20:59 02/06/17 21:50 Citalopram Hydrobromide (celeXA) 40 mg DAILY ORAL 02/06/17 09:00 03/08/17 08:59 02/07/17 08:34 Clonidine HCl (Catapres) 0.1 mg Q4H PRN ORAL SBP > 160 02/06/17 08:12 03/07/17 15:29 02/07/17 17:38 Clopidogrel Bisulfate (Plavix) 75 mg DAILY ORAL 02/06/17 09:00 03/08/17 08:59 02/07/17 08:34 Dextrose 1,000 ml @ 75 mls/hr [id number] IV 02/05/17 15:00 03/07/17 14:59 02/07/17 03:41 Docusate Sodium (Colace) 100 mg THREE TIMES A DAY ORAL 02/06/17 09:00 03/08/17 08:59 02/07/17 17:38 Epoetin Robbie (Procrit (for non ESRD use)) 10,000 units Mo@2100 SUBQ 02/11/17 21:00 03/13/17 20:59 Heparin Sodium (Porcine) (Heparin 5000 units/ml) 5,000 units EVERY 12 HOURS SUBQ 02/05/17 21:00 03/07/17 20:59 02/05/17 21:45 Hydralazine HCl (Apresoline) 25 mg Q8HR ORAL 02/06/17 14:00 03/08/17 13:59 02/07/17 13:08 Isosorbide Mononitrate (Imdur) 60 mg DAILY ORAL 02/06/17 09:00 03/08/17 08:59 02/07/17 08:34 Labetalol HCl (Normodyne) 200 mg Q8HR ORAL 02/06/17 08:13 03/07/17 21:59 02/07/17 13:08 Levofloxacin (Levaquin) 50 ml @ 50 mls/hr Q48H IVPB 02/06/17 10:00 02/13/17 09:59 02/06/17 10:45 Morphine Sulfate (Morphine Sulfate) 2 mg Q4H PRN IM SeverePain Unrelieved by Jenn 02/05/17 15:30 02/12/17 15:29 Pantoprazole (Protonix) 40 mg BIAC ORAL 02/06/17 09:00 03/08/17 08:59 02/07/17 16:29 Sitagliptin Phosphate (Januvia) 25 mg ACBREAKFAST ORAL 02/06/17 08:13 03/08/17 06:29 02/07/17 06:16 Temazepam (Restoril) 15 mg HSPRN PRN ORAL Insomnia 02/06/17 08:13 02/12/17 14:59 CHARLOTTE MARTINES February 07, 2017 22:30
--- NOTE | 2017-02-09 11:38 | Discharge Summary ---
Discharge Summary Hospital Course Date of Admission February 02, 2017 at 05:42 Date of Discharge February 07, 2017 at 20:15 Admitting Diagnosis HPI Darell Helm is a 71 year old female who was admitted on February 02, 2017 at 05:42 for Urinary Tract Infection Hospital Course [id number] Discharge Discharge Disposition Patient was discharged to Home (01) Discharge Diagnoses: Yeni Tellez NP February 09, 2017 11:38
--- NOTE | 2017-02-10 04:19 | Discharge Summary 2 SIG ---
DATE OF ADMISSION: 02/02/2017 DATE OF DISCHARGE: 02/07/2017 CONSULTANTS: 1. Demario Rdz M.D. 2. Aguilar Villagran M.D. 3. Roseanna Chin M.D. BRIEF HOSPITAL COURSE: The patient is a 71-year-old female with history of diabetes mellitus, hypertension, and CVA, skilled nursing resident, who was taken initially to [facility] secondary to altered level of consciousness. She was evaluated at [place] and was transferred to [facility] for further evaluation. She was seen by Dr. Villagran to evaluate for possible acute stroke and onset of unresponsiveness with a dilated right pupil. At [place], a stat CT of the brain was done showed extensive area of cerebral palsy blocks with right frontal parietal vertex, left occipital lobe, bilateral basal ganglia, left thalamus, left cerebellar hemisphere suggestive of chronic areas of infarction. There was no evidence of acute intracranial abnormality. Transient obtundation is most likely a result of underlying metabolic derangement and urinary tract infection. She was seen by Dr. Chin for uncontrolled hypertension. Blood pressure was 196/73 at the emergency room. On telemetry, the patient had been in sinus rhythm. Echocardiogram done showed ejection fraction of 70% to 75% with mild left ventricular hypertrophy and no significant valve lesions. She was treated with hydralazine and was given labetalol. Hypertension improved. She was given Kayexalate for hyperkalemia. Nephrology was consulted for evaluation of renal failure. Creatinine was 3.7. The patient also had anemia hemoglobin of 9.8 and hematocrit of 33 and was given Epogen injections. Renal ultrasound showed medical renal disease. Mental status improved. She had an episode of acute anemia and was transfused 1 unit of packed RBC. She was eventually discharged home with home health. FINAL DIAGNOSES: 1. Acute on chronic renal failure. 2. Anemia of chronic kidney disease. 3. Acute metabolic encephalopathy. 4. Acute tubular necrosis. 5. Hypertension. 6. Old cerebrovascular accident. 7. Hyperkalemia. Jeyson Peralta M.D. I have been assigned to dictate discharge summary on this account and I was not involved in the patient's management. Yeni Tellez N.P. DR: ASHLEY JOB#: [id number] CC:
--- NOTE | 2017-02-11 13:03 | Diagnostic Imaging Report ---
Indication: Dysphasia Procedure and findings: Real-time fluoroscopic imaging performed in a lateral projection in conjunction with the speech pathologist evaluation. Variable consistencies of barium given per mouth. Findings: Significant abnormalities of both oral and pharyngeal phases of swallowing are demonstrated. Total fluoroscopic time 269 seconds. Delayed swallowing and penetration with thin barium and nectar are thick barium noted. Moderate residual. No aspiration identified. Abnormal video swallow. Please refer to speech pathology evaluation for more information.
[2017-02-11] MEDS ORDERED: Epogen (for non ESRD use) SUBQ SCH (21:00)
== END 2017-02-07 20:15 | disposition home health service (06) | DRG 682 ==
LOC: 2E 02-02 05:42 → 4W 02-05 14:28
PROC: 30233N1 Transfusion of Nonautologous Red Blood Cells into Peripheral Vein, Percutaneous Approach (ICD-10-PCS; principal; 2017-02-06)
DX: N17.0 Acute kidney failure with tubular necrosis (principal); G93.41 Metabolic encephalopathy; G82.50 Quadriplegia, unspecified; N39.0 Urinary tract infection, site not specified; I12.9 Hypertensive chronic kidney disease with stage 1 through stage 4 chronic kidney disease, or unspecified chronic kidney disease; E11.9 Type 2 diabetes mellitus without complications; D63.1 Anemia in chronic kidney disease; N18.9 Chronic kidney disease, unspecified; Z86.73 Personal history of transient ischemic attack (TIA), and cerebral infarction without residual deficits; Z79.02 Long term (current) use of antithrombotics/antiplatelets; E87.5 Hyperkalemia; E78.5 Hyperlipidemia, unspecified; Z79.4 Long term (current) use of insulin; Z88.8 Allergy status to other drugs, medicaments and biological substances
CPT/HCPCS: 36415; 74000; 74230; 76775; 80048; 80053; 80061; 81001; 82378; 82550; 82607; 82746; 82962; 82977; 83036; 83540; 83550; 83615; 83735; 83880; 84100; 84300; 84443; 84550; 85007; 85025; 85044; 85060; 85610; 85651; 85730; 86140; 86850; 86900; 86901; 86920; 87081; 87086; 89050; 93306; J2765